=== PATIENT | female | born 1955 | race Caucasian/White ===

== ENCOUNTER 2018-09-23 14:27 | Emergency (ER) | payer MEDICARE ==
[2018-09-23] MEDS ORDERED: NS 0.9% 1000 ML* 1,000 ML IV ONE (18:32)
[2018-09-23] MEDS ORDERED: fentaNYL* 50 MCG/ML 2 ML VIAL (100 MCG VIAL) IV ONE (18:32)
--- NOTE | 2018-09-23 19:14 | ED ---
Headache - HPI Summary HPI Summary: 63-year-old female with complicated medical history presents with close friend with complaints of severe headache. She has a history of migraines and is followed by Dr. Miguel, neurology. Patient also states that since June of this year she has also been having significant issues pain throughout her joints and muscles. She reports that Dr. Miguel suspect she may have Parkinson's however she was recently evaluated by Dr. Cortes at [facility] who did not feel she had Parkinson's but did raise concern for Chittenden's disease. States blood work was performed at that visit but have not been given any results. States she has been evaluated twice at [place] emergency room in the past week for her headache and that they were able to improve her headache however it would return shortly after returning home. Reports at home she has only been taking 1 1/2 of her hydrocodone- acetaminophen 5/325 tablets daily and instead been try to manage with her DHE out of fear of becoming addicted to the opioid pain medication. After last visit to [facility] ED, states she was prescribed fentanyl patches however she was told by one of her doctors not to use these because "she may go to sleep and not wake up". She told her friend that she was considering using them anyway "because would be better than her constant pain". Her friend removed the fentanyl patches from the home because of these statements. Patient states that she is not currently suicidal nor does she have a plan in place. States the headache is located in the right judaism and right side of her head. Describes as throbbing. Associated with some photophobia. States headache is similar to her past headaches however states the pain is 10/10 and is the worse headache of her life. Denies nasal congestion, sinus congestion, ear pain or fullness, sore throat, cough, chest pain, palpitations, shortness of breath, abdominal pain, nausea, vomiting, diarrhea, dysuria, frequency, urgency, or hematuria. - History Of Current Complaint Chief Complaint: EDHeadache Stated Complaint: HURT ALL OVER Time Seen by Provider: 09/23/18 18:03 Hx Obtained From: Patient, Other: - Friend - Allergies/Home Medications Allergies/Adverse Reactions: Allergies Allergy/AdvReac Type Severity Reaction Status Date / Time hydromorphone [From Dilaudid] Allergy Vomiting Verified 09/23/18 14:35 memantine [From Namenda] Allergy Coughing Verified 09/23/18 14:35 oxycodone Allergy Vomiting Verified 09/23/18 14:35 Sulfa (Sulfonamide Allergy Rash And Verified 09/23/18 14:35 Antibiotics) Itching sumatriptan [From Imitrex] Allergy See Comment Verified 09/23/18 14:35 Home Medications: Home Medications ALPRAZolam [Alprazolam] 1 mg PO BID 09/23/18 [History Confirmed 09/23/18] ALPRAZolam [Alprazolam] 2 mg PO BID PRN 09/23/18 [History Confirmed 09/23/18] Albuterol HFA INHALER* [Ventolin HFA Inhaler*] 2 puff INH Q4H PRN 09/23/18 [ History Confirmed 09/23/18] Aloe Vera 1 tab PO DAILY 09/23/18 [History Confirmed 09/23/18] Ammonium Lactate 12% [Lac-Hydrin 12 %] 1 applic TOPICAL BID PRN 09/23/18 [ History Confirmed 09/23/18] Calcium Carb, Citrate/Vit D3 [Calcium+D3 Gradual Releas] 1 tab PO DAILY [History Confirmed 09/23/18] Cyclobenzaprine TAB* [Flexeril 10 MG TAB*] 10 mg PO Q8H PRN 09/23/18 [History Confirmed 09/23/18] Dihydroergotamine (D.H.E.)* [D.h.e. 45*] 1 mg .SEE ORDER DAILY PRN 09/23/18 [ History Confirmed 09/23/18] Escitalopram Oxalate [Lexapro 20 mg] 30 mg PO DAILY 09/23/18 [History Confirmed 09/23/18] Fenofibrate Nanocrystallized [Tricor] 145 mg PO DAILY 09/23/18 [History Confirmed 09/23/18] Fremanezumab-Vfrm [Ajovy] 225 mg SQ SEE INSTRUCTIONS 09/23/18 [History Confirmed 09/23/18] Hydrocodone/Acetaminophen [Vicodin 5-300 mg] 1 tab PO Q4H PRN 09/23/18 [History Confirmed 09/23/18] Krill/Om-3/Dha/Epa/Phospho/Ast [Krill Oil 500 mg] 1 cap PO DAILY 09/23/18 [ History Confirmed 09/23/18] Magnesium 400 mg PO DAILY 09/23/18 [History Confirmed 09/23/18] Montelukast Sodium TAB* [Singulair TAB*] 10 mg PO BEDTIME 09/23/18 [History Confirmed 09/23/18] Omeprazole CAP* [Prilosec CAP* 20 MG] 20 mg PO DAILY 09/23/18 [History Confirmed 09/23/18] Onabotulinumtoxina [Botox Cosmetic] 1 dose INJ SEE INSTRUCTIONS 09/23/18 [ History Confirmed 09/23/18] Ondansetron ODT TAB* [Zofran 4 MG Odt TAB*] 4 mg PO TID PRN 09/23/18 [History Confirmed 09/23/18] Sucralfate TAB* [Carafate*] 1 gm PO BID 09/23/18 [History Confirmed 09/23/18] Thalidomide [Thalomid] 100 mg PO DAILY 09/23/18 [History Confirmed 09/23/18] Triamcinolone 0.1% CREAM (NF) [Kenalog 0.1% Cream (NF)] 1 applic TOPICAL DAILY PRN 09/23/18 [History Confirmed 09/23/18] PMH/Surg Hx/FS Hx/Imm Hx Endocrine/Hematology History: Denies: Autoimmune Disease Cardiovascular History: Reports: Hx Hypercholesterolemia Denies: Hx Coronary Artery Disease Respiratory History: Reports: Hx Asthma GI History: Reports: Hx Gastroesophageal Reflux Disease, Other GI Disorders - Chroninc constipation History: Reports: Hx Kidney Infection Musculoskeletal History: Reports: Hx Back Problems, Other Musculoskeletal History - Complex pain syndrome Neurological History: Reports: Hx Migraine, Other Neuro Impairments/Disorders - 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 Psychiatric History: Reports: Hx Anxiety - with panic attacks - Cancer History Cancer Type, Location and Year: Breast cancer right breast Hx Chemotherapy: Yes - [id number] - Surgical History Surgery Procedure, Year, and Place: Jaw surgery (1969, 1972, 1990), Hysterectomy (1987), Spinal fusion C3-7, L4-S1, Sinus (2005), Baldder tvt (2001 , 2009, 2016), ORIF right ankle (2009), Infectious Disease History: No Infectious Disease History: Denies: Traveled Outside the [place] in Last 30 Days - Social History Occupation: Disabled Lives: Alone Alcohol Use: Weekly Alcohol Amount: 1 glass wine Substance Use Type: Reports: None Smoking Status (MU): Never Smoked Tobacco Review of Systems Negative: Fever, Chills Positive: Photophobia. Negative: Blurred Vision, Diplopia, Drainage, Erythema Negative: Sore Throat, Ear Ache, Nasal Discharge Negative: Palpitations, Chest Pain Negative: Shortness Of Breath, Cough Negative: Abdominal Pain, Vomiting, Diarrhea, Nausea Positive: no symptoms reported Positive: Myalgia Negative: Rash Positive: Headache. Negative: Weakness, Paresthesia, Numbness, Syncope, Slurred Speech Positive: Depressed, Other - Suicidal ideas All Other Systems Reviewed And Are Negative: Yes Physical Exam - Summary Physical Exam Summary: GENERAL APPEARANCE: Obese, chronically ill-appearing, alert and cooperative female who appears to be in no acute distress. HEAD: Atraumatic. normocephalic. EYES: PERRL, EOM intact. Vision is grossly intact. EARS: External auditory canals and tympanic membranes clear, hearing grossly intact. NOSE: No nasal discharge. THROAT: Oral cavity and pharynx normal. No inflammation, swelling, exudate, or lesions. Teeth and gingiva in good general condition. NECK: Neck supple, non-tender without lymphadenopathy. CARDIAC: Normal S1 and S2. No S3, S4 or murmurs. Rhythm is regular. There is no peripheral edema, cyanosis or pallor. Extremities are warm and well perfused. Capillary refill is less than 2 seconds. Peripheral pulses intact. LUNGS: Clear to auscultation without rales, rhonchi, wheezing or diminished breath sounds. ABDOMEN: Positive bowel sounds. Soft, rotund, nondistended, nontender. No guarding or rebound. No masses or hepatosplenomegally. MUSKULOSKELETAL: ROM intact to all extremities. No joint erythema or tenderness. Normal muscular development. EXTREMITIES: No significant deformity or joint abnormality. No edema. NEUROLOGICAL: CN II-XII intact. Speech is slurred and patient appears to need to concentrate when speaking but her friend states this has been her baseline for almost 1 year now. Strength and sensation symmetric and intact throughout. Reflexes 2+ throughout. Richards to toe intact bilaterally. SKIN: Skin normal color, texture and turgor with no lesions or eruptions. PSYCHIATRIC: The patient was able to demonstrate good judgement and reason, without hallucinations, abnormal affect or abnormal behaviors during the examination. Patient denies suicidal ideation or plan at present. Triage Information Reviewed: Yes Vital Signs On Initial Exam: Initial Vitals Temp Pulse Resp BP Pulse Ox 97.9 F 76 18 152/79 99 09/23/18 14:31 09/23/18 14:31 09/23/18 14:31 09/23/18 14:31 09/23/18 14:31 Vital Signs Reviewed: Yes Diagnostics - Vital Signs Vital Signs Temp Pulse Resp BP Pulse Ox 09/23/18 16:42 98.0 F 72 17 149/85 99 09/23/18 14:31 97.9 F 76 18 152/79 99 - Laboratory Result Diagrams: 09/23/18 19:32 09/23/18 19:31 Lab Statement: Any lab studies that have been ordered have been reviewed, and results considered in the medical decision making process. - CT No standard instances CT Interpretation Completed By: Radiologist Summary of CT Findings: EXAM: CT Head Without Contrast. EXAM DATE/TIME: 2018 7:11 PM. CLINICAL HISTORY: 63 years old, female; Pain; Headache; Additional info: Headache "worst ever". TECHNIQUE: Axial computed tomography images of the head/brain without contrast. All CT scans at this facility use at least one of these dose optimization. techniques: automated exposure control ; mA and/or kV adjustment per patient. size (includes targeted exams where dose is matched to clinical indication); or. iterative reconstruction. COMPARISON: No relevant prior studies available. FINDINGS: Brain: No mass, acute hemorrhage, or edema. Ventricles: Normal. No ventriculomegaly. Bones/ joints: Normal. No acute fracture. Sinuses: Normal as visualized. No acute sinusitis. Mastoid air cells: Normal as visualized. No mastoid effusion. Soft tissues: Normal. Vasculature: Atherosclerotic calcification. IMPRESSION: No acute intracranial abnormality. Re-Evaluation - Re-Evaluation First Eval Re-Evaluation Time: 19:48 Change: Improved Comment: Patient states pain is much improved. Her headache is now 7/10 and her body aches are 4/10. Resting quietly. CT scan shows no acute process. Labs are still pending. Will continue to monitor and request mental health assessment at the request of the patient. Headache Course/Dx - Course Course Of Treatment: 63-year-old female with complicated medical history presents with close friend with complaints of severe headache. She has a history of migraines and is followed by Dr. Miguel, neurology. Patient also states that since June of this year she has also been having significant issues pain throughout her joints and muscles. She reports that Dr. Miguel suspect she may have Parkinson's however she was recently evaluated by Dr. Cortes at [facility] who did not feel she had Parkinson's but did raise concern for Chittenden's disease. States blood work was performed at that visit but have not been given any results. States she has been evaluated twice at [place] emergency room in the past week for her headache and that they were able to improve her headache however it would return shortly after returning home. Reports at home she has only been taking 1 1/2 of her hydrocodone-acetaminophen 5/325 tablets daily and instead been try to manage with her DHE out of fear of becoming addicted to the opioid pain medication. After last visit to [facility] ED, states she was prescribed fentanyl patches however she was told by one of her doctors not to use these because "she may go to sleep and not wake up". She told her friend that she was considering using them anyway "because would be better than her constant pain". Her friend removed the fentanyl patches from the home because of these statements. Patient states that she is not currently suicidal nor does she have a plan in place. States the headache is located in the right judaism and right side of her head. Describes as throbbing. Associated with some photophobia. States headache is similar to her past headaches however states the pain is 10/10 and is the worse headache of her life. Denies nasal congestion, sinus congestion, ear pain or fullness, sore throat, cough, chest pain, palpitations, shortness of breath, abdominal pain, nausea, vomiting, diarrhea, dysuria, frequency, urgency, or hematuria. Afebrile. She is hypertensive but vital signs otherwise within normal parameters. Exam reveals a chronically appearing female in no acute distress. She is noted to have some slurred speech and has to concentrate when speaking however her friend who is with her states that this is been her baseline for the past year. The remainder of her exam including her neurological exam were unremarkable. A noncontrasted CT of the head was obtained and showed no acute pathology. Labs showed a mild normocytic anemia with a red blood cell count of 3.96, elevated serum glucose of 164, mild hyponatremia with sodium of 134, urinalysis was normal except for some small amount of glucose. Patient received fentanyl 50 g IV 1 dose with improvement in her pain. A mental health evaluation was obtained at the patient's request. Mental health felt patient was safe for discharge with outpatient follow up. From a medical standpoint I also feel she is safe for discharge. She has appointments scheduled for follow up with Dr. Cortes and Dr. Miguel. I encouraged her to contact Dr. Cortes first thing Wednesday since he was currently evaluating her for the new pain syndrome, to let him know about her recent ED visits, and to inquire about an earlier appointment considering the escalation of her pain. I also encouraged the patient to utilize her hydrocodone as prescribed since the DHE was not managing her pain adequately. Warning symptoms were reviewed with the patient. Verbalizes understanding and agrees with POC. - Diagnoses Differential Diagnosis/HQI/PQRI: CVA, TIA, Epidural Hematoma, Subdural Hematoma , Migraine, Sinus Headache, Subarachnoid Hemorrhage, Tension Headache Provider Diagnoses: Migraine headache, Chronic idiopathic pain syndrome Discharge - Sign-Out/Discharge Documenting (check all that apply): Patient Departure - Discharge Plan Condition: Improved Disposition: HOME Patient Education Materials: Migraine Headache (ED), Depression (ED) Referrals: No Primary Care Phys,NOPCP [Primary Care Provider] - Additional Instructions: I highly recommend that you use your hydrocodone-acetaminophen as it is prescribed for your pain. Call Dr. Cortes's office first thing Wednesday to make him aware of your recent evaluations in the emergency room and discuss possibly moving your appointment to sooner than 10/13/2018. Follow up with Dr. Miguel as scheduled. Seek immediate medical attention in the emergency room if you have loss of consciousness, become dizzy, have visual disturbances, weakness, numbness, tingling in the arms or legs, chest pain, feel like your heart is racing or skipping beats, shortness of breath, or any worsening of symptoms. Per the Mental Health Evaluation: Per completion of a mental health evaluation, you are cleared for release and do not require inpatient psychiatric hospitalization at this time. Please go to nearest emergency room or call 911 if safety concerns arise or condition worsens. Important Phone Numbers: [facility] ph:[phone] Su[facility] Prevention [facility] Crisis Services ph:[phone] National Suicide Prevention Lifeline ph:[phone] ([phone]) [facility] ph:[phone] Alcoholics Anonymous ph: [facility] ph:[phone] [facility] ph:[phone] Mental [facility] recommendation is to follow through with therapist and psychatrist as well as consider engagement in a [facility] for increased support and access to care. Return to ED if mental health symptoms worsen, you have ideation of self harm or desire to return. - Billing Disposition and Condition Condition: IMPROVED Disposition: Home
[2018-09-23 19:43] LABS: ABS Basophils 0 10^3/ul (0-0.2); ABS Eosinophils 0.2 10^3/ul (0-0.6); ABS Lymphocytes 0.8 10^3/ul (1.0-4.8); ABS Monocytes 0.5 10^3/ul (0-0.8); ABS Neutrophils 2.8 10^3/ul (1.5-7.7); ABS Nucleated RBC 0 10^3/ul; Eosinophil % 4.7 %; Hematocrit 36 % (35-47); Lymphocyte % 17.6 %; Mean Corpuscular HGB Conc 34 g/dl (31-36); Mean Corpuscular Hemoglobin 30 pg (27-31); Mean Corpuscular Volume 90 fL (80-97); Nucleated Red Blood Cells % 0.1; Platelet Count 385 10^3/ul (150-450); Red Blood Count 3.96 10^6/ul (4.00-5.40); Red Cell Distribution Width 15 % (10.5-15); White Blood Count 4.3 10^3/ul (3.5-10.8)
[2018-09-23 19:46] LABS: Urine Appearance Clear; Urine Bilirubin Negative (Negative); Urine Blood Negative (Negative); Urine Color Straw; Urine Glucose 1+(50 mg/dL) (Negative); Urine Ketones Negative (Negative); Urine Nitrite Negative (Negative); Urine Protein Negative (Negative); Urine Specific Gravity 1.002 (1.010-1.030); Urine Urobilinogen Negative (Negative)
[2018-09-23 19:59] LABS: Albumin/Globulin Ratio 1.5 (1-3); BUN/Creatinine Ratio 10.6 (8-20); Calcium 9.1 mg/dL (8.6-10.3); EGFR Non-African American 89.9 (>60); Globulin 2.7 g/dL (2-4); Potassium 3.8 mmol/L (3.5-5.0); Total Bilirubin 0.3 mg/dL (0.2-1.0); Total Protein 6.7 g/dL (6.4-8.9)
[2018-09-23 20:56] LABS: Erythrocyte Sed Rate 18 mm/Hr (0-40)
[2018-09-23 22:33] VITALS: BP 148/72
== END 2018-09-23 22:58 | disposition home or self-care (01) ==
LOC: ED 14:27
DX: G43.909 Migraine, unspecified, not intractable, without status migrainosus (principal); G89.4 Chronic pain syndrome; E66.9 Obesity, unspecified; E78.00 Pure hypercholesterolemia, unspecified; J45.909 Unspecified asthma, uncomplicated; K21.9 Gastro-esophageal reflux disease without esophagitis; F41.9 Anxiety disorder, unspecified; Z85.3 Personal history of malignant neoplasm of breast; Z88.2 Allergy status to sulfonamides; Z88.5 Allergy status to narcotic agent
CPT/HCPCS: 36415; 70450; 80053; 81003; 85025; 85652; 96361; 96374; 99284; J3010

== ENCOUNTER 2019-01-11 17:50 | Emergency (ER) | payer MEDICARE, MEDICAID ==
--- OUTSIDE RECORDS SUMMARY | 2019-01-11 18:00 | XMS REPORT | Continuity of Care Document ---
:1955 External Reference #:[id number] Author Name Bella leija Care Team Providers Name Role Phone Melia Marin MD Primary Care Physician Unavailable Payers Date Identification Numbers Payment Provider Subscriber Effective: 2002 Policy Number: [id number] Medicare Barbara Sorto PayID: [id number] [address] [place] [address] Policy Number: [id number] Medicaid Barbara Sorto Group Name: 1 1 [address] PayID: [id number] [place] [address] Expires: 2018 Policy Number: [id number] Pako Sorto PayID: [id number] [address] [place] [address] Advance Directives Description No Information Available Problems Date Description Provider Status Onset: 10/02/2014 Refractory migraine without aura Charles Quiñones M.D. Active Onset: 06/21/2015 Localized, primary osteoarthritis Evans Vuong M.D. Active Family History Description No Information Available Social History Type Date Description Comments Sex Unknown ETOH Use Denies alcohol use Tobacco Use Start: Unknown Patient has never smoked Smoking Status Reviewed: 12/20/18 Patient has never smoked Allergies, Adverse Reactions, Alerts Date Description Reaction Status Severity Comments 03/21/2013 Sulfa Antibiotics Active 03/21/2013 Dilaudid Active 03/21/2013 Oxycodone Active 03/21/2013 Imitrex Active 09/19/2013 Bentyl Active 12/19/2013 Namenda Cough Active Medications Medication Date Status Form Strength Qnty SIG Indications Ordering Provider Lidocaine Viscous 12/20 Active Solution 2% 100ml Take 4mL G43.019 Charles S. /2018 intranasal Ishmael, ly daily M.D. as needed for . May take up to 3 times a week. Dihydroergotamine 09/06 Active Solution 1mg/ml 10uni Inject One Charles S. Mesylate ts ML Every 8 [place], Hours as M.D. Needed For Migraine. Maximum Daily Dose=3MG Max Weekly Dose Is 6 MG Xanax Active Tablets 2mg 1 tablet Unknown / by mouth three daily Thalomid Active Capsules 100mg qd for cough Symbicort Active Aerosol 80-4.5mcg 2 puff / /Act twice a day prn Fenofibrate Active Capsules 145mg 1 by mouth Unknown Micronized / every day Montelukast Sodium Active Tablets 10mg 1 by mouth Unknown / every night Magnesium Active Capsules 400mg 1 by mouth Unknown / every day Aloe Vera Active Tablet 1 tab po qd Krill Oil Active Capsules 500mg 1 capsule Unknown /0000 by mouth daily Cyclobenzaprine Active Tablets 10mg one by Unknown HCL / mouth three times a day Lexapro Active Tablets 20mg 1 1/2 tab Unknown / by mouth every day Botox Active Solution 1 Rec injection every 3 months Sucralfate Active Tablets 1gm 1 tab a day Albuterol Sulfate Active Nebulizer (2.5mg/3M 1 / L) 0.083% applicatio n every 4 hours as needed Calcium 500 Active Tablets 500-250-2 once a day 00mg-mg-U nit Vicodin Active Tablets 5-300mg 1-2 every Unknown 4 hours as needed Omeprazole Active Capsules 20mg [address] every day CBD Oil Active Unknown / Ammonium Lactate Active Cream 12% use twice Unknown / a day Triaminolone Active prn Unknown Acetone Cream .1% /0000 Doxycycline Active Capsules 100mg Unknown Monohydrate / Ondansetron 10/19 Hx Tablets 4mg 90tab 1 three G24.01 . Dispers s times a Ishmael, - day as M.D. 12/19 needed for nausea Topiramate 12/26 Hx Tablets 25mg 120ta 2 in am . bs and 2 Ishmael, - every M.D. 10/12 night at bedtime Prednisone 12/19 Hx Tablets 20mg 6tabs 3 po x1 day then 2 Ishmael, - po x1 day M.D. 01/19 then 1 po qd and stop Prednisone 11/26 Hx Tablets 20mg 6tabs 3 po x1 day then 2 Ishmael, - po x1 day M.D. 12/10 then 1 po qd and stop Cephalexin 02/27 Hx Capsules 500mg 21cap 1 by mouth S. s qid Ishmael, - M.D. 06/06 Thalomid 02/06 Hx Capsules 100mg Ordering - Provider 03/23 Rizatriptan 12/19 Hx Tablets 5mg 10tab 1 by mouth Charles S. Benzo s twice a Ishmael, - day as M.D. 06/20 needed migraine max 2 d/wk do not take within 24 hours of Dhe Vicodin HP 12/01 Hx Tablets 10-300mg 90tab 1 tablet s by mouth Olu LEARNING AND DEVELOPMENT ADMINISTRATOR - every 8 01/04 hours as needed Vicodin 11/15 Hx Tablets 10-325mg 90tab 1 tablet Charles S. s po q 8 Ishmael, - hours prn M.D. 12/01 Prochlorperazine 05/05 Hx Tablets 10mg 60tab 1 tab Charles S. Male s twice a Ishmael, - day as M.D. 10/10 needed for migraine. Maxalt-PIPE BOWLS PAINT TRIMMER 12/06 Hx Tablets 10mg 10tab 1 twice a Charles S. /2012 Dispers s day max 2 Ishmael, - days/week M.D. 01/11 as needed for headache Namenda 08/03 Hx Tablets 10mg 60tab 1 po bid Charles S. s Ishmael, - M.D. 12/19 Hydrocodone 05/31 Hx Tablets 10-300mg 90tab 1 three Charles S. Bitartrate/Acetami /2011 s times a brian Quiñones - terrell pain M.D. 09/21 Aspirin Low Hx Chewtabs 81mg 1 po qd Unknown Strength /0000 - 12/19 Fish Oil Double Hx Capsules 1200mg 30cap 1 po qd Unknown Strength /0000 s - 10/12 Flexeril Hx Tablets 10mg 90tab 1 po tid Unknown /0000 s - 12/10 Singulair Hx Tablets 10mg 90tab 1 po qd Unknown /0000 s - 09/19 Xanax XR Hx Tablets ER 1mg 30tab 1 qid prn Unknown / 24HR s - 09/19 Calcium 1200 Hx Chewtabs 8183-5407 90uni 1 po qd Unknown /0000 mg-Unit ts - 12/20 Albuterol Sulfate Hx Tablets 2mg 1tabs 2 puffs Unknown /0000 four times - a day as 10/12 Vicodin HP Hx Tablets 10-300mg 24tab 1 q6h prn Unknown /0000 s - 08/30 Dihydroergotamine Hx Solution 1mg/ml 10uni inject 1 Unknown Mesylate /0000 ts ml every 8 - hours as 09/19 needed migraine max 3 mg/d and 6 mg/wk Nexium Hx Packet 40mg 90uni 1 po qd Unknown /0000 ts - 10/12 Namenda Hx Tablets 10mg 60tab 1 po bid Unknown /0000 s - 09/19 Zetia Hx Tablets 10mg 1 po qd Unknown / - 09/19 Clonazepam / Hx Tablets 1mg 1 PO qid Unknown / - 09/28 Furosemide / Hx Tablets 20mg 1 PO qd Unknown / - 06/06 Codeine Sulfate Hx Tablets 30mg 1 PO Q 8h Unknown / - 06/20 Escitalopram / Hx Tablets 20mg 1 PO qd Unknown Oxalate /0000 - 12/19 Proair HFA Hx Aerosol 108(90Bas Unknown /0000 e) - mcg/Act 06/06 Escitalopram 00/00 Hx Tablets 20mg 1.5 tabs Unknown Oxalate /0000 PO daily - 12/16 EX-Lax Hx Tablets 15mg 2 po prn Unknown /0000 - 06/06 Hydrocodone-Acetam 00/00 Hx Tablets 10-325mg 1 tab by Unknown inophen /0000 mouth - every 8 10/12 hours needed migraine Methylprednisolone 00 Hx Tablets 4mg 4 po daily Unknown (Giovani) /0000 and then - as 06/06 directed days Zetia Hx Tablets 10mg 1 by mouth Unknown /0000 every day - 10/10 Tolterodine Hx Tablets 1 tab po Unknown Tartrate /0000 qd - 08/30 Metformin HCL Hx Tablets 500mg 1 by mouth Unknown /0000 every - night 08/29 Potassium 00 Hx Tablets 99mg otc once a Unknown /0000 day - 07/06 Myrbetriq Hx Tablets ER 50mg 1 by mouth Unknown /0000 24HR every day - 10/12 Tizanidine HCL 00 Hx Tablets 2mg 1 po q8h Unknown /0000 - 10/12 Xanax 00 Hx Tablets 1mg 1 tablet Unknown /0000 by mouth - twice 12/19 Sucralfate 0000 Hx Tablets 1gm 1 by mouth Unknown /0000 twcie a - day 10/18 Hydrocodone-Acetam 0000 Hx Tablets 5-325mg 1 tab by Unknown inophen /0000 mouth - every 4 12/19 hours needed Ajovy 00/00 Hx Soln 225mg/1.5 inject Unknown /0000 Prefill ML once a - Syringe month 10/10 Medications Administered in Office Medication Date Status Form Strength Qnty SIG Indications Ordering Provider Synvisc Or 10/26 Administered Injection Evans Synvis- Yevgeniy, Injection 1 MG M.D. Synvisc Or 10/26 Administered Injection Evans Synvisc- Yevgeniy, Injection 1 MG M.D. Depomedrol 40MG 10/10 Administered Injection Vani Vuong Depomedrol 40MG 10/10 Administered Injection Vani Vuong Depomedrol 40MG 10/13 Administered Injection Vani Vuong Depomedrol 40MG 10/13 Administered Injection Vani Vuong Depomedrol 40MG 07/07 Administered Injection Vani Vuong Depomedrol 40MG 07/07 Administered Injection Vani Vuong Depomedrol 40MG 03/03 Administered Injection Vani Vuong Depomedrol 40MG 03/03 Administered Injection Vani Vuong Depomedrol 40MG 11/04 Administered Injection Vani Vuong Depomedrol 40MG 11/04 Administered Injection Vani Vuong Depomedrol 40MG 07/01 Administered Injection Vani Vuong Depomedrol 40MG 07/01 Administered Injection Vani Vuong Depomedrol 40MG 02/25 Administered Injection Vani Vuong Depomedrol 40MG 02/25 Administered Injection Vani Vuong Injection 01/20 Administered Injection Charles S. Onabotulinumtoxin /2015 Ishmael A, 1 Unit M.D. Depomedrol 40MG 10/23 Administered Injection Vani Vuong Injection 10/16 Administered Injection Charles S. Onabotulinumtoxin /2015 Ishmael, A, 1 Unit M.D. Injection 07/04 Administered Injection Lea Onabotulinumtoxin /2014 GEO Raines A, 1 Unit Depomedrol 80MG 06/21 Administered Injection Vani Vuong Injection 04/03 Administered Injection Lea Onabotulinumtoxin /2014 Olu LEARNING AND DEVELOPMENT ADMINISTRATOR A, 1 Unit Injection 01/02 Administered Injection Lea Onabotulinumtoxin /2014 GEO Raines A, 1 Unit Injection 10/02 Administered Injection Charles S. Onabotulinumtoxin /2014 Ishmael, A, 1 Unit M.D. Injection 07/03 Administered Injection Charles S. Onabotulinumtoxin /2013 [place], A, 1 Unit M.D. Injection 03/27 Administered Injection Charles S. Onabotulinumtoxin /2013 [place], A, 1 Unit M.D. Injection 12/19 Administered Injection Charles S. Onabotulinumtoxin /2013 Bello Quiñones, 1 Unit M.D. Injection 09/19 Administered Injection Charles S. Onabotulinumtoxin /2012 Bello Quiñones, 1 Unit M.D. Injection 06/13 Administered Injection Charles S. Onabotulinumtoxin /2012 Bello Quiñones, 1 Unit M.D. Injection 03/08 Administered Injection Charles S. Onabotulinumtoxin /2012 Bello Quiñoens, 1 Unit M.D. Synvisc Or 12/13 Administered Injection Evans Synvisc-One Yevgeniy, Injection 1 MG M.D. Synvisc Or 12/13 Administered Injection Evans Synvisc-One Yevgeniy, Injection 1 MG M.D. Injection 12/06 Administered Injection Charles S. Onabotulinumtoxin /2012 Bello Quiñones, 1 Unit M.D. Injection 09/06 Administered Injection Charles S. Onabotulinumtoxin /2011 Bello Quiñones, 1 Unit M.D. Synvisc Or 06/30 Administered Injection Kvng Synvisc-One Delvis, Injection 1 MG M.D. Synvisc Or 06/21 Administered Injection Evans Synvisc-One Yevgeniy, Injection 1 MG M.D. Synvisc Or 06/14 Administered Injection Evans Synvisc-One Yevgeniy, Injection 1 MG M.D. Synvisc Or 06/14 Administered Injection Evans Synvisc-One Yevgeniy, Injection 1 MG M.D. Synvisc Or 06/14 Administered Injection Evans Synvisc-One Yevgeniy, Injection 1 MG M.D. Injection 05/31 Administered Injection Charles S. Onabotulinumtoxin /2011 Bello Quiñones, 1 Unit M.D. Injection 05/31 Administered Injection Charles S. Onabotulinumtoxin /2011 Bello Quiñones, 1 Unit M.D. Immunizations Description No Information Available Vital Signs Date Vital Result Comment 12/20/2018 2:38pm Height 64 inches 5'4" Weight 150.00 lb Heart Rate 80 /min BP Systolic 134 mmHg BP Diastolic 82 mmHg BMI (Body Mass Index) 25.7 kg/m2 10/26/2018 1:10pm Height 64 inches 5'4" Weight 172.00 lb BP Systolic 130 mmHg BP Diastolic 70 mmHg Respiratory Rate 20 /min Pain Level 6 BMI (Body Mass Index) 29.5 kg/m2 10/11/2018 11:25am Height 64 inches 5'4" Weight 160.00 lb Heart Rate 76 /min BP Systolic 128 mmHg BP Diastolic 84 mmHg BMI (Body Mass Index) 27.5 kg/m2 06/29/2018 2:05pm Height 64 inches 5'4" Weight 172.00 lb BP Systolic 140 mmHg BP Diastolic 66 mmHg Respiratory Rate 20 /min Pain Level 8 BMI (Body Mass Index) 29.5 kg/m2 10/19/2017 10:41am Height 64 inches 5'4" Weight 171.50 lb Heart Rate 80 /min BP Systolic 122 mmHg BP Diastolic 78 mmHg Respiratory Rate 16 /min BMI (Body Mass Index) 29.4 kg/m2 10/13/2017 12:55pm Height 64 inches 5'4" Weight 172.00 lb Heart Rate 72 /min BP Systolic Sitting 132 mmHg LA reg cuff BP Diastolic Sitting 84 mmHg LA reg cuff Pain Level 8 BMI (Body Mass Index) 29.5 kg/m2 07/07/2017 1:36pm Height 64 inches 5'4" Weight 159.00 lb BP Systolic 120 mmHg BP Diastolic 68 mmHg Respiratory Rate 20 /min Pain Level 5 BMI (Body Mass Index) 27.3 kg/m2 03/03/2017 9:15am Height 64 inches 5'4" Weight 159.00 lb Heart Rate 84 /min BP Systolic 140 mmHg BP Diastolic 82 mmHg Respiratory Rate 18 /min Body Temperature 97.7 F Pain Level 6 BMI (Body Mass Index) 27.3 kg/m2 11/04/2016 11:31am Height 64 inches 5'4" Weight 150.00 lb Heart Rate 88 /min Respiratory Rate 18 /min Pain Level 3 BMI (Body Mass Index) 25.7 kg/m2 07/01/2016 11:44am Height 64 inches 5'4" Weight 150.00 lb per patient Heart Rate 74 /min BP Systolic Sitting 128 mmHg BP Diastolic Sitting 60 mmHg Pain Level 5 5/10 discomfort level; achy BMI (Body Mass Index) 25.7 kg/m2 02/26/2016 11:49am Height 64 inches 5'4" Weight 152.00 lb Pain Level 8 BMI (Body Mass Index) 26.1 kg/m2 01/21/2016 10:44am Height 64 inches 5'4" Weight 152.38 lb Heart Rate 88 /min BP Systolic Sitting 118 mmHg BP Diastolic Sitting 68 mmHg Respiratory Rate 14 /min BMI (Body Mass Index) 26.2 kg/m2 12/18/2015 10:41am Height 64 inches 5'4" Weight 154.00 lb Heart Rate 68 /min BP Systolic Sitting 122 mmHg BP Diastolic Sitting 70 mmHg Respiratory Rate 16 /min BMI (Body Mass Index) 26.4 kg/m2 10/16/2015 1:52pm Height 64 inches 5'4" Weight 156.00 lb Heart Rate 64 /min BP Systolic Sitting 118 mmHg BP Diastolic Sitting 78 mmHg Respiratory Rate 14 /min BMI (Body Mass Index) 26.8 kg/m2 08/30/2015 11:01am Height 64 inches 5'4" Weight 160.00 lb Heart Rate 72 /min BP Systolic Sitting 122 mmHg BP Diastolic Sitting 74 mmHg Respiratory Rate 16 /min BMI (Body Mass Index) 27.5 kg/m2 07/04/2015 10:21am Height 64 inches 5'4" Weight 155.00 lb Heart Rate 72 /min BP Systolic Sitting 118 mmHg BP Diastolic Sitting 84 mmHg Respiratory Rate 14 /min BMI (Body Mass Index) 26.6 kg/m2 06/21/2015 11:55am Height 64 inches 5'4" Weight 163.00 lb Pain Level 8 BMI (Body Mass Index) 28.0 kg/m2 06/07/2015 3:35pm Height 64 inches 5'4" Weight 163.00 lb Heart Rate 72 /min BP Systolic Sitting 124 mmHg BP Diastolic Sitting 76 mmHg Respiratory Rate 16 /min BMI (Body Mass Index) 28.0 kg/m2 05/22/2015 10:05am Height 64 inches 5'4" Weight 166.00 lb Pain Level 5 BMI (Body Mass Index) 28.5 kg/m2 04/03/2015 10:30am Height 64 inches 5'4" Heart Rate 72 /min BP Systolic Sitting 138 mmHg BP Diastolic Sitting 84 mmHg Respiratory Rate 16 /min 02/27/2015 11:11am Height 64 inches 5'4" Weight 166.00 lb Heart Rate 68 /min BP Systolic Sitting 120 mmHg BP Diastolic Sitting 74 mmHg Respiratory Rate 16 /min BMI (Body Mass Index) 28.5 kg/m2 01/02/2015 10:40am Height 64 inches 5'4" Heart Rate 68 /min BP Systolic Sitting 116 mmHg BP Diastolic Sitting 64 mmHg Respiratory Rate 16 /min 10/02/2014 1:06pm Height 64 inches 5'4" Weight 168.00 lb Heart Rate 64 /min BP Systolic Sitting 118 mmHg BP Diastolic Sitting 76 mmHg Respiratory Rate 16 /min BMI (Body Mass Index) 28.8 kg/m2 07/03/2014 2:30pm Height 64 inches 5'4" Weight 172.00 lb Heart Rate 84 /min BP Systolic Sitting 16 mmHg BP Diastolic Sitting 64 mmHg Respiratory Rate 16 /min BMI (Body Mass Index) 29.5 kg/m2 03/27/2014 9:22am Height 64 inches 5'4" Weight 172.00 lb Heart Rate 80 /min BP Systolic Sitting 102 mmHg BP Diastolic Sitting 68 mmHg Respiratory Rate 16 /min BMI (Body Mass Index) 29.5 kg/m2 12/19/2013 3:28pm Height 64 inches 5'4" Weight 172.00 lb Heart Rate 88 /min BP Systolic Sitting 118 mmHg BP Diastolic Sitting 76 mmHg Respiratory Rate 16 /min BMI (Body Mass Index) 29.5 kg/m2 09/19/2013 3:36pm Heart Rate 98 /min BP Systolic Sitting 120 mmHg BP Diastolic Sitting 80 mmHg Respiratory Rate 18 /min Results Description No Information Available Procedures Date Code Description Status 10/26/2018 Inject/Drain Joint/Bursa Major W/O US Completed 06/29/2018 Inject/Drain Joint/Bursa Major W/O US Completed 10/13/2017 Inject/Drain Joint/Bursa Major W/O US Completed 07/07/2017 Inject/Drain Joint/Bursa Major W/O US Completed 07/02/2017 07780 ECHO Transthorasic Realtime 2D W Doppler & Color Flow Hosp Completed 03/03/2017 Inject/Drain Joint/Bursa Major W/O US Completed 11/04/2016 Inject/Drain Joint/Bursa Major W/O US Completed 07/01/2016 Inject/Drain Joint/Bursa Major W/O US Completed 02/26/2016 Inject/Drain Joint/Bursa Major W/O US Completed 01/21/2016 85451 Chemodenervation Of Muscles Innervated By Facial Nerves, Completed Bilat 10/23/2015 Inject/Drain Joint/Bursa Major W/O US Completed 10/23/2015 80977 Inject/Drain Joint/Bursa Major W/O US Completed 10/16/2015 13617 Chemodenervation Of Muscles Innervated By Facial Nerves, Completed Bilat 07/04/2015 57007 Chemodenervation Of Muscles Innervated By Facial Nerves, Completed Bilat 06/21/201507338 Inject/Drain Joint/Bursa Major W/O US Completed 04/03/2015 58423 Chemodenervation Of Muscles Innervated By Facial Nerves, Completed Bilat 01/02/2015 48589 Chemodenervation Of Muscles Innervated By Facial Nerves, Completed Bilat 10/02/2014 89748 Chemodenervation Of Muscles Innervated By Facial Nerves, Completed Bilat 07/03/2014 49953 Chemodenervation Of Muscles Innervated By Facial Nerves, Completed Bilat 05/29/201428109 Inject/Drain Joint/Bursa Major W/O US Completed 05/22/2014 Inject/Drain Joint/Bursa Major W/O US Completed 05/15/2014 Inject/Drain Joint/Bursa Major W/O US Completed 04/24/201497616 Inject/Drain Joint/Bursa Major W/O US Completed 03/27/2014 91993 Chemodenervation Of Muscles Innervated By Facial Nerves, Completed Bilat 02/06/201416092 Inject/Drain Joint/Bursa Major W/O US Completed 12/19/2013 07777 Chemodenervation Of Muscles Innervated By Facial Nerves, Completed Bilat 10/03/2013 Inject/Drain Joint/Bursa Major W/O US Completed 09/19/2013 63091 Chemodenervation Of Muscles Innervated By Facial Nerves, Completed Bilat 06/13/2013 53119 Chemodenervation Of Muscles Innervated By Facial Nerves, Completed Bilat 03/08/2013 49030 Chemodenervation Of Muscles Innervated By Facial Nerves, Completed Bilat 12/13/201226611 Inject/Drain Joint/Bursa Major W/O US Completed 12/06/2012 39304 Chemodenervation Of Muscles Innervated By Facial Nerves, Completed Bilat 09/06/2012 48598 Destruction W/Neurolytic Agent, Facial Nerve Muscle, Completed Unilateral 06/30/2012 Inject/Drain Joint/Bursa Major W/O US Completed 06/21/2012 Inject/Drain Joint/Bursa Major W/O US Completed 06/21/2012 Inject/Drain Joint/Bursa Major W/O US Completed 06/14/201249500 Inject/Drain Joint/Bursa Major W/O US Completed 05/31/2012 86862 Destruction W/Neurolytic Agent, Facial Nerve Muscle, Completed Unilateral 10/21/2004 96118 ECHO/Stress Completed 10/21/2004 05283 Treadmill Interp/Report Only Completed 10/21/2004 97382 Stress Test Supervsn W/Out I/R Completed 09/29/2004 33640 ECHO/Stress Completed 09/29/2004 29182 Stress Test Completed Encounters Type Date Location Provider Dx Diagnosis Office Visit 10/26/2018 Orthopedic Evans Vuong, M17.0 Bilateral primary 1:30p [facility] Ludwig osteoarthritis of knee M86.8x8 Other osteomyelitis, other site Office Visit 10/11/2018 Beckie Leggett G43.019 Migraine w/o aura, 11:00a Milly Quiñones M.D. 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 knee M25.561 Pain in right knee M25.562 Pain in left knee Office Visit 08/30/2015 Beckie Leggett G43.019 Migraine w/o aura, 11:00a Milly Quiñones M.D. intractable, [facility] [employer] without status migrainosus Office Visit 06/07/2015 Beckie Raines, 334.3 Cerebellar Ataxia 3:00p Neurologic LEARNING AND DEVELOPMENT ADMINISTRATOR Other [facility] [employer] 781.2 Gait Abnormality Office 05/22/2015 Orthopedic Services Narcisa 715.96 Osteoarthrosis Visit 9:45a Of XIAO Foster Unspec Genlzd Or Localized Lower Leg Office 02/27/2015 Neurohospitalist Charles Leggett 346.11 Migraine W/O Aura Visit 10:45a Clinic Vani Quiñones W/Intractable W/O Status Migrainosus Office 07/03/2014 [place] [facility] Charles Leggett 346.11 Migraine W/O Aura Visit 2:00p Services Of Reuben Quiñones M.D. 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 Unspec Genlzd Or AT [place] Localized Lower Leg Office [place] 12/19[place]2013 [place] 346.11 Migraine W/O Aura 3:00p Neurologic Vani Quiñones W/Intractable W/O [facility] Status Migrainosus Office Visit 10/03/2013 Orthopedic Evans 715.96 Osteoarthrosis 1:15p Services Of Reuben Vuong M.D. Unspec Genlzd Or AT [place] Localized Lower Leg Office Visit 03/08/2013 [place] Charles Leggett 346.11 Migraine W/O Aura 1:00p Neurologic Vani Quiñones W/Intractable W/O [facility] Status Migrainosus Office Visit 02/07/2013 Orthopedic Evans 715.96 Osteoarthrosis 1:15p Services Of Reuben Vuong M.D. Unspec Genlzd Or AT [place] Localized Lower Leg Office Visit 12/27/2012 Orthopedic Evans 719.46 Pain Joint Lower Leg 11:30a Services Of Reuben Vuong M.D. AT [place] Office Visit 12/22/2012 Orthopedic Kvng 715.96 Osteoarthrosis 2:15p Services Of Reuben Edmondson M.D. Unspec Genlzd Or AT [place] Localized Lower Leg Office Visit 12/13/2012 Orthopedic Evans 715.96 Osteoarthrosis 3:15p Services Of Reuben Vuong M.D. Unspec Genlzd Or AT [place] Localized Lower Leg 726.61 Bursitis Tendinitis Pes Anserinus Office [place]/06[place]2012 [place] Migraine W/O Aura 2:00p Neurologic Vani Quiñones W/Intractable W/O [facility] Status Migrainosus Office Visit 09/06/2012 [place] Charles Leggett 346.11 Migraine W/O Aura 2:00p Neurologic Vani Quiñones W/Intractable W/O [facility] Status Migrainosus Office Visit 08/16/2012 Orthopedic Evans 715.96 Osteoarthrosis 1:30p Services Of Reuben Vuong M.D. Unspec Genfided Or AT [facility] Lower Leg Office Visit 06/30/2012 Orthopedic Kvng 715.96 Osteoarthrosis 2:00p Services Of Reuben Edmondson M.D. Unspec Gengeoff Or AT [facility] Lower Leg Office Visit 05/31/2012 [place] Charles Castro.11 Migraine W/O Aura 11:00a Neurologic Vani Quiñones W/Intractable W/O [facility] Status Migrainosus Office Visit 05/03/2012 Orthopedic Eavns 715.96 Osteoarthrosis 3:00p Services Of Reuben Vuong M.D. Unspec Genlzd Or AT [facility] Lower Leg Plan of Treatment Future Appointment(s):06/27/2019 2:45 pm - Charles Quiñones M.D. at [place] [facility]04/26/2019 1:00 pm - Evans [facility] - Bear Quintero, NPG43.019 Migraine without aura, intractable, without status migrainosNew Medication:Lidocaine Viscous 2 % - Take 4mL intranasally daily as needed for . May take up to 3 times a week.Follow up:Please obtain ER records from [facility] in November. 6 MONTHS
--- OUTSIDE RECORDS SUMMARY | 2019-01-11 18:00 | XMS REPORT | Continuity of Care Document ---
:1955 External Reference #:[id number] Author Name Benny Berkowitz DO Address [address] [place] [id number] Care Team Providers Name Role Phone Melia Marin MD Primary Care Physician Unavailable Payers Date Identification Numbers Payment Provider Subscriber Policy Number: [id number] Medicare Barbara Sorto PayID: [id number] [facility] [address] [place] [address] Policy Number: [id number] Medicaid/Medicare Barbara Sorto Group Name: [id number] 1 [facility] [employer] PayID: [id number] [address] [place] [address] Advance Directives Description No Information Available Problems Description No Information Family History Description No Information Available Social History Type Date Description Comments Sex Unknown Tobacco Use Start: Unknown Patient has never smoked Smoking Status Reviewed: 12/19/18 Patient has never smoked Allergies, Adverse Reactions, Alerts Date Description Reaction Status Severity Comments 12/19/2018 Sulfa Active 12/19/2018 Oxycodone Active 12/19/2018 Dilaudid Active 12/19/2018 Compazine Active 12/19/2018 [place] Active Medications Medication Date Status Form Strength Qnty SIG Indications Ordering Provider Cyclobenzaprine HCL 12/19 Active Tablets 10mg prn Woo, DO Thalomid 12/19 Active Capsules 100mg Daily Woo, DO Sucralfate 12/19 Active Tablets 1gm 120ta 1 tablet bs by mouth Woo, bid DO Ventolin HFA 12/19 Active Aerosol 108(90Bas 1unit e) s Woo, mcg/Act DO Symbicort 12/19 Active Aerosol 80-4.5mcg /Act Woo, DO Fenofibrate 12/19 Active Tablets 145mg 90tab 1 by mouth s every day DO Woo Montelukast Sodium 12/19 Active Tablets 10mg Daily DO Woo Alprazolam Active Tablets 2mg bid Lexapro Active Tablets 20mg 07/22 Tablets Daily Dihydroergotamine Active Solution 1mg/ml Migraines Unknown Mes Omeprazole Active Capsules 20mg [address] every day Medical Marijuana Active Unknown / Immunizations Description No Information Available Vital Signs Date Vital Result Comment 12/19/2018 2:05pm Height 64 inches 5'4" Weight 150.00 lb BP Systolic 117 mmHg BP Diastolic 85 mmHg Heart Rate 94 /min BMI (Body Mass Index) 25.7 kg/m2 Results Description No Information Available Procedures Description No Information Available Encounters Description No Information Available Plan of Treatment Future Appointment(s):02/03/2019 11:45 am - Benny Berkowitz DO at [facility]12/19/2018 - LUKE [id number] Dysphagia, oropharyngeal phaseNew Xrays:X-Ray, Esophogram w/ Barium Tablet, Ordered: Comments:RISKS AND BENEFITS OF THE PROCEDURE WERE DISCUSSED WITH PATIENT.K59.00 Constipation, [id number] Encounter for screening for malignant neoplasm of colon
[2019-01-11 19:05] LABS: ALT 7 U/L (7-52); AST 8 U/L (13-39); Albumin 3.5 g/dL (3.2-5.2); Albumin/Globulin Ratio 1.3 (1-3); Alkaline Phosphatase 55 U/L (34-104); Anion Gap 8 mmol/L (2-11); BUN/Creatinine Ratio 13.3 (8-20); Blood Urea Nitrogen 8 mg/dL (6-24); C Reactive Protein 112.16 mg/L (<8.01); CO2 Carbon Dioxide 30 mmol/L (22-32); Calcium 9.1 mg/dL (8.6-10.3); Chloride 96 mmol/L (101-111); EGFR African American 121.4 (>60); EGFR Non-African American 100.3 (>60); Globulin 2.6 g/dL (2-4); Glucose 160 mg/dL (70-100); Potassium 3.8 mmol/L (3.5-5.0); Sodium 134 mmol/L (135-145); Total Protein 6.1 g/dL (6.4-8.9)
[2019-01-11 19:12] LABS: ABS Basophils 0 10^3/ul (0-0.2); ABS Eosinophils 0.2 10^3/ul (0-0.6); ABS Lymphocytes 0.6 10^3/ul (1.0-4.8); ABS Monocytes 1.3 10^3/ul (0-0.8); ABS Nucleated RBC 0 10^3/ul; Eosinophil % 1.9 %; Hematocrit 36 % (33-41); Hemoglobin 11.9 g/dL (12.0-16.0); Lymphocyte % 6.2 %; Mean Corpuscular HGB Conc 33 g/dL (31-36); Mean Corpuscular Hemoglobin 30 pg (27-31); Mean Corpuscular Volume 90 fL (80-97); Mean Platelet Volume 7.6 fL (7.4-10.4); Nucleated Red Blood Cells % 0; Platelet Count 344 10^3/uL (150-450); Red Blood Count 3.99 10^6 /uL (3.70-4.87); Red Cell Distribution Width 15 % (10.5-15); White Blood Count 9.1 10^3/uL (3.5-10.8)
[2019-01-11] MEDS ORDERED: Iohexol 350* (CONTRAST) 500 ML MDV IV ONE (19:23)
[2019-01-11] MEDS ORDERED: Heparin DRIP 25,000 UNITS(*) 25,000 UNITS/500 ML BAG IV SCH (21:30)
[2019-01-11] MEDS ORDERED: Ondansetron INJ* 2 MG/ML VIAL IV ONE (21:32)
[2019-01-11] MEDS ORDERED: Morphine 10 MG/ML VIAL (1 ml) IV ONE (21:32)
[2019-01-11] MEDS ORDERED: NS 0.9% 1000 ML** 1,000 ML IV ONE (21:32)
[2019-01-11] MEDS ORDERED: Heparin VIAL(*) 5000 UNITS/ML VIAL (FIVE THOUSAND) IV PRN (21:37)
[2019-01-11 22:08] LABS: Urine Appearance Cloudy; Urine Bilirubin Negative (Negative); Urine Blood Negative (Negative); Urine Color Yellow; Urine Glucose 1+(50 mg/dL) (Negative); Urine Ketones Negative (Negative); Urine Nitrite Negative (Negative); Urine Protein Negative (Negative); Urine Specific Gravity 1.039 (1.010-1.030); Urine Urobilinogen Negative (Negative)
[2019-01-11 22:18] LABS: Urine Granular Casts Present (Absent)
[2019-01-11 22:21] LABS: Urine Squamous Epithelial Cell Present (Absent); Urine Transitional Epithelial Present (Absent)
[2019-01-11 22:51] LABS: ABS Basophils 0 10^3/ul (0-0.2); ABS Eosinophils 0.1 10^3/ul (0-0.6); ABS Lymphocytes 0.7 10^3/ul (1.0-4.8); ABS Monocytes 1.5 10^3/ul (0-0.8); ABS Neutrophils 7.5 10^3/ul (1.5-7.7); ABS Nucleated RBC 0 10^3/ul; Eosinophil % 1.4 %; Hematocrit 34 % (33-41); Hemoglobin 11.2 g/dL (12.0-16.0); Lymphocyte % 7.4 %; Mean Corpuscular HGB Conc 33 g/dL (31-36); Mean Corpuscular Hemoglobin 30 pg (27-31); Mean Corpuscular Volume 91 fL (80-97); Mean Platelet Volume 7.6 fL (7.4-10.4); Nucleated Red Blood Cells % 0; Platelet Count 314 10^3/uL (150-450); Red Blood Count 3.77 10^6 /uL (3.70-4.87); Red Cell Distribution Width 15 % (10.5-15); White Blood Count 9.9 10^3/uL (3.5-10.8)
[2019-01-11 23:07] LABS: EGFR African American 137.1 (>60); EGFR Non-African American 113.3 (>60)
[2019-01-12] MEDS ORDERED: Morphine 10 MG/ML VIAL (1 ml) IV ONE (00:46)
--- NOTE | 2019-01-12 03:44 | ED ---
HPI Chest Pain - HPI Summary HPI Summary: Complains of bilateral lower chest pain 1-2 weeks. Patient states she went to [facility] for same, was told she had fluid on the hard, has appointment with cardiology scheduled this coming Wednesday. Patient states pain was too persistent to wait until apartment with cardiology. Patient denies radiation of pain, SOB, fever, cough, sore throat, N/V/D, diaphoresis, lightheadedness, abdominal pain, change in urine, change in BM. Medical history is migraines, asthma, carditis dyskinesia from taking Compazine. Patient states she stepped Compazine 1 year ago with slow but progressive improvement in symptoms. States she had CHF when she was receiving chemotherapy for breast cancer 10 years ago. Patient in remission from breast cancer. Denies any other cardiac history. No anti-coagulation. - History of Current Complaint Chief Complaint: EDChestPainROMI Time Seen by Provider: 01/11/19 18:10 Hx Obtained From: Patient Onset/Duration: Started Weeks Ago Timing: Constant Initial Severity: Moderate Current Severity: Moderate Pain Intensity: 7 Pain Scale Used: 0-10 Numeric Chest Pain Location: Left Lateral, Right Lateral Chest Pain Radiates: No Character: Pressure/Squeezing Aggravating Factor(s): Nothing Alleviating Factor(s): Nothing Associated Signs and Symptoms: Positive: Chest Pain - Allergy/Home Medications Allergies/Adverse Reactions: Allergies Allergy/AdvReac Type Severity Reaction Status Date / Time hydromorphone [From Dilaudid] Allergy Vomiting Verified 09/23/18 14:35 memantine [From Namenda] Allergy Coughing Verified 09/23/18 14:35 oxycodone Allergy Vomiting Verified 09/23/18 14:35 Sulfa (Sulfonamide Allergy Rash And Verified 09/23/18 14:35 Antibiotics) Itching sumatriptan [From Imitrex] Allergy See Comment Verified 09/23/18 14:35 PMH/Surg Hx/FS Hx/Imm Hx Endocrine/Hematology History: Denies: Hx Diabetes Cardiovascular History: Reports: Hx Hypercholesterolemia Denies: Hx Coronary Artery Disease, Hx Hypertension Respiratory History: Reports: Hx Asthma GI History: Reports: Hx Gastroesophageal Reflux Disease, Other GI Disorders - Chroninc constipation History: Reports: Hx Kidney Infection Musculoskeletal History: Reports: Hx Back Problems, Other Musculoskeletal History - Complex pain syndrome Neurological History: Reports: Hx Migraine, Other Neuro Impairments/Disorders - 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 Psychiatric History: Reports: Hx Anxiety - with panic attacks Denies: Hx Eating Disorder, Hx of Violent Episodes Against Others - Cancer History Cancer Type, Location and Year: Breast cancer right breast Hx Chemotherapy: Yes - [id number] - Surgical History Surgery Procedure, Year, and Place: Jaw surgery (1969, 1972, 1990), Hysterectomy (1987), Spinal fusion C3-7, L4-S1, Sinus (2005), Baldder tvt (2001 , 2009, 2016), ORIF right ankle (2009), Infectious Disease History: No Infectious Disease History: Denies: Traveled Outside the [place] in Last 30 Days - Social History Alcohol Use: Weekly Alcohol Amount: 1 glass wine Substance Use Type: Reports: None Smoking Status (MU): Never Smoked Tobacco Review of Systems Constitutional: Negative Eyes: Negative ENT: Negative Positive: Chest Pain Respiratory: Negative Gastrointestinal: Negative Genitourinary: Negative Musculoskeletal: Negative Skin: Negative Neurological: Negative Psychological: Normal All Other Systems Reviewed And Are Negative: Yes Physical Exam - Summary Physical Exam Summary: Lung sounds clear to auscultation bilaterally. Patient tender to palpation lower chest wall bilaterally. No evidence of trauma. Abdomen soft nontender. No peripheral edema. Calves soft nontender. Triage Information Reviewed: Yes Vital Signs On Initial Exam: Initial Vitals Temp Pulse Resp BP Pulse Ox 100.2 F 83 18 130/101 97 01/11/19 18:00 01/11/19 18:00 01/11/19 18:00 01/11/19 18:00 01/11/19 18:00 Vital Signs Reviewed: Yes Appearance: Positive: Well-Appearing Skin: Positive: Warm Head/Face: Positive: Normal Head/Face Inspection Eyes: Positive: Normal Neck: Positive: Supple Respiratory/Lung Sounds: Positive: Clear to Auscultation Cardiovascular: Positive: Normal Abdomen Description: Positive: Nontender Musculoskeletal: Positive: Normal Neurological: Positive: Normal Psychiatric: Positive: Normal AVPU Assessment: Alert - Ranjan Coma Scale Best Eye Response: 4 - Spontaneous Best Motor Response: 6 - Obeys Commands Best Verbal Response: 5 - Oriented Coma Scale Total: 15 Diagnostics - Vital Signs Vital Signs Temp Pulse Resp BP Pulse Ox 01/12/19 02:00 81 28 91 01/12/19 01:40 81 32 140/84 92 01/12/19 01:10 86 18 142/89 94 01/12/19 01:00 84 19 93 01/12/19 00:53 18 01/12/19 00:40 83 20 131/86 94 01/12/19 00:10 83 20 146/89 94 01/12/19 00:00 83 21 93 01/11/19 23:40 80 20 132/84 93 01/11/19 23:10 85 27 144/88 93 01/11/19 23:01 83 20 95 01/11/19 22:40 85 21 132/90 94 01/11/19 22:01 81 20 94 01/11/19 21:52 18 01/11/19 21:40 26 142/88 01/11/19 21:10 80 22 147/98 93 01/11/19 21:01 79 23 94 01/11/19 20:49 74 27 94 01/11/19 20:40 77 24 137/82 94 01/11/19 20:10 81 38 129/96 94 01/11/19 20:02 81 20 94 01/11/19 19:43 85 27 138/91 95 01/11/19 19:09 84 23 139/86 95 01/11/19 19:00 83 25 96 01/11/19 18:40 83 20 131/81 95 01/11/19 18:11 86 21 97 01/11/19 18:09 87 17 130/77 97 01/11/19 18:00 100.2 F 83 18 130/101 97 - Laboratory Lab Results: Lab Results 01/11/19 01/11/19 01/11/19 Range/Units 18:39 18:39 18:39 WBC 9.1 (3.5-10.8) 10^3/uL RBC 3.99 (3.70-4.87) 10^6 /uL Hgb 11.9 L (12.0-16.0) g/dL Hct 36 (33-41) % MCV 90 (80-97) fL MCH 30 (27-31) pg MCHC 33 (31-36) g/dL RDW 15 (10.5-15) % Plt Count 344 (150-450) 10^3/uL MPV 7.6 (7.4-10.4) fL Neut % (Auto) 76.9 % Lymph % (Auto) 6.2 % [place] % (Auto) 14.8 % Eos % (Auto) 1.9 % Baso % (Auto) 0.2 % Absolute Neuts (auto) 7.0 (1.5-7.7) 10^3/ul Absolute Lymphs (auto) 0.6 L (1.0-4.8) 10^3/ul Absolute Monos (auto) 1.3 H (0-0.8) 10^3/ul Absolute Eos (auto) 0.2 (0-0.6) 10^3/ul Absolute Basos (auto) 0 (0-0.2) 10^3/ul Absolute Nucleated RBC 0 10^3/ul Nucleated RBC % 0 APTT (26.0-36.3) seconds Sodium 134 L (135-145) mmol/L Potassium 3.8 (3.5-5.0) mmol/L Chloride 96 L (101-111) mmol/L Carbon Dioxide 30 (22-32) mmol/L Anion Gap 8 (2-11) mmol/L BUN 8 (6-24) mg/dL Creatinine 0.60 (0.51-0.95) mg/dL Est GFR ( Amer) 121.4 (>60) Est GFR (Non-Af Amer) 100.3 (>60) BUN/Creatinine Ratio 13.3 (8-20) Glucose 160 H (70-100) mg/dL Lactic Acid 1.0 (0.5-2.0) mmol/L Calcium 9.1 (8.6-10.3) mg/dL Total Bilirubin 0.30 (0.2-1.0) mg/dL AST 8 L (13-39) U/L ALT 7 (7-52) U/L Alkaline Phosphatase 55 (34-104) U/L Troponin I 0.00 (<0.04) ng/mL C-Reactive Protein 112.16 H (<8.01) mg/L Total Protein 6.1 L (6.4-8.9) g/dL Albumin 3.5 (3.2-5.2) g/dL Globulin 2.6 (2-4) g/dL Albumin/Globulin Ratio 1.3 (1-3) Lipase < 10 L (11.0-82.0) U/L Urine Color Urine Appearance Urine pH (5-9) Ur Specific Sunbright (1.010-1.030) Urine Protein (Negative) Urine Ketones (Negative) Urine Blood (Negative) Urine Nitrate (Negative) Urine Bilirubin (Negative) Urine Urobilinogen (Negative) Ur Leukocyte Esterase (Negative) Ur Squamous Epith Cells (Absent) Ur Transition Epith Cell (Absent) Hyaline Casts (Absent) Granular Casts (Absent) Urine Glucose (Negative) 01/11/19 01/11/19 01/11/19 Range/Units 21:33 21:52 22:40 WBC (3.5-10.8) 10^3/uL RBC (3.70-4.87) 10^6 /uL Hgb (12.0-16.0) g/dL Hct (33-41) % MCV (80-97) fL MCH (27-31) pg MCHC (31-36) g/dL RDW (10.5-15) % Plt Count (150-450) 10^3/uL MPV (7.4-10.4) fL Neut % (Auto) % Lymph % (Auto) % [place] % (Auto) % Eos % (Auto) % Baso % (Auto) % Absolute Neuts (auto) (1.5-7.7) 10^3/ul Absolute Lymphs (auto) (1.0-4.8) 10^3/ul Absolute Monos (auto) (0-0.8) 10^3/ul Absolute Eos (auto) (0-0.6) 10^3/ul Absolute Basos (auto) (0-0.2) 10^3/ul Absolute Nucleated RBC 10^3/ul Nucleated RBC % APTT (26.0-36.3) seconds Sodium (135-145) mmol/L Potassium (3.5-5.0) mmol/L Chloride (101-111) mmol/L Carbon Dioxide (22-32) mmol/L Anion Gap (2-11) mmol/L BUN 9 (6-24) mg/dL Creatinine 0.54 (0.51-0.95) mg/dL Est GFR ( Amer) 137.1 (>60) Est GFR (Non-Af Amer) 113.3 (>60) BUN/Creatinine Ratio (8-20) Glucose (70-100) mg/dL Lactic Acid (0.5-2.0) mmol/L Calcium (8.6-10.3) mg/dL Total Bilirubin (0.2-1.0) mg/dL AST (13-39) U/L ALT (7-52) U/L Alkaline Phosphatase (34-104) U/L Troponin I 0.00 (<0.04) ng/mL C-Reactive Protein (<8.01) mg/L Total Protein (6.4-8.9) g/dL Albumin (3.2-5.2) g/dL Globulin (2-4) g/dL Albumin/Globulin Ratio (1-3) Lipase (11.0-82.0) U/L Urine Color Yellow Urine Appearance Cloudy Urine pH 7.0 (5-9) Ur Specific Sunbright 1.039 H (1.010-1.030) Urine Protein Negative (Negative) Urine Ketones Negative (Negative) Urine Blood Negative (Negative) Urine Nitrate Negative (Negative) Urine Bilirubin Negative (Negative) Urine Urobilinogen Negative (Negative) Ur Leukocyte Esterase Trace A (Negative) Ur Squamous Epith Cells Present A (Absent) Ur Transition Epith Cell Present A (Absent) Hyaline Casts Present A (Absent) Granular Casts Present A (Absent) Urine Glucose 1+(50 mg/dl) A (Negative) 01/11/19 01/12/19 01/12/19 Range/Units 22:40 00:24 00:25 WBC 9.9 (3.5-10.8) 10^3/uL RBC 3.77 (3.70-4.87) 10^6 /uL Hgb 11.2 L (12.0-16.0) g/dL Hct 34 (33-41) % MCV 91 (80-97) fL MCH 30 (27-31) pg MCHC 33 (31-36) g/dL RDW 15 (10.5-15) % Plt Count 314 (150-450) 10^3/uL MPV 7.6 (7.4-10.4) fL Neut % (Auto) 75.7 % Lymph % (Auto) 7.4 % [place] % (Auto) 15.1 % Eos % (Auto) 1.4 % Baso % (Auto) 0.4 % Absolute Neuts (auto) 7.5 (1.5-7.7) 10^3/ul Absolute Lymphs (auto) 0.7 L (1.0-4.8) 10^3/ul Absolute Monos (auto) 1.5 H (0-0.8) 10^3/ul Absolute Eos (auto) 0.1 (0-0.6) 10^3/ul Absolute Basos (auto) 0 (0-0.2) 10^3/ul Absolute Nucleated RBC 0 10^3/ul Nucleated RBC % 0 APTT 126.7 H* (26.0-36.3) seconds Sodium (135-145) mmol/L Potassium (3.5-5.0) mmol/L Chloride (101-111) mmol/L Carbon Dioxide (22-32) mmol/L Anion Gap (2-11) mmol/L BUN (6-24) mg/dL Creatinine (0.51-0.95) mg/dL Est GFR ( Amer) (>60) Est GFR (Non-Af Amer) (>60) BUN/Creatinine Ratio (8-20) Glucose (70-100) mg/dL Lactic Acid (0.5-2.0) mmol/L Calcium (8.6-10.3) mg/dL Total Bilirubin (0.2-1.0) mg/dL AST (13-39) U/L ALT (7-52) U/L Alkaline Phosphatase (34-104) U/L Troponin I 0.00 (<0.04) ng/mL C-Reactive Protein (<8.01) mg/L Total Protein (6.4-8.9) g/dL Albumin (3.2-5.2) g/dL Globulin (2-4) g/dL Albumin/Globulin Ratio (1-3) Lipase (11.0-82.0) U/L Urine Color Urine Appearance Urine pH (5-9) Ur Specific [place] (1.010-1.030) Urine Protein (Negative) Urine Ketones (Negative) Urine Blood (Negative) Urine Nitrate (Negative) Urine Bilirubin (Negative) Urine Urobilinogen (Negative) Ur Leukocyte Esterase (Negative) Ur Squamous Epith Cells (Absent) Ur Transition Epith Cell (Absent) Hyaline Casts (Absent) Granular Casts (Absent) Urine Glucose (Negative) Result Diagrams: 01/11/19 22:40 01/11/19 22:40 Lab Statement: Any lab studies that have been ordered have been reviewed, and results considered in the medical decision making process. Chest Pain Course/Dx - Course Course Of Treatment: Complains of bilateral lower chest pain 1-2 weeks. Patient states she went to [facility] ED for same, was told she had fluid on the hard, has appointment with cardiology scheduled this coming Wednesday. Patient states pain was too persistent to wait until apartment with cardiology. Patient denies radiation of pain, SOB, fever, cough, sore throat, N/V/D, diaphoresis, lightheadedness, abdominal pain, change in urine, change in BM. Medical history is migraines, asthma, carditis dyskinesia from taking Compazine. Patient states she stepped Compazine 1 year ago with slow but progressive improvement in symptoms. States she had CHF when she was receiving chemotherapy for breast cancer 10 years ago. Patient in remission from breast cancer. Denies any other cardiac history. No anti-coagulation. Physical exam: Lung sounds clear to auscultation bilaterally. Patient tender to palpation lower chest wall bilaterally. No evidence of trauma. Abdomen soft nontender. No peripheral edema. Calves soft nontender. Vital signs within normal limits. Labs unremarkable. Chest x-ray unremarkable. EKG sinus rhythm. CTA chest positive for acute thrombus within the anterior aspect of the upper abdominal aorta with thrombus extending into and including the celiac axis including likely occlusion of the proximal aspect of the splenic and hepatic arteries. There is fat stranding surrounding the involved occluded arteries consistent with acute occlusion. Patient transferred to [facility] for vascular surgery. Accepting physician vascular surgery. Vital signs remain stable. Heparin drip initiated but then discontinued for 1 hour per protocol for PTT of 126. Pain controlled with morphine 4 mg IV. - Diagnoses Provider Diagnoses: Aortic thrombus - Critical Care Time Critical Care Time: 75-104 min Discharge - Sign-Out/Discharge Documenting (check all that apply): Patient Departure Patient Received Moderate/Deep Sedation with Procedure: No - Discharge Plan Condition: Fair Disposition: ADMITTED TO OTHER HOSPITAL Referrals: Melia Marin MD [Primary Care Provider] - - Billing Disposition and Condition Condition: FAIR Disposition: Admitted to Other Hospital
[2019-01-12 04:00] VITALS: BP 111/64
== END 2019-01-12 04:29 | disposition short-term general hospital (02) ==
LOC: ED 17:50
DX: I74.10 Embolism and thrombosis of unspecified parts of aorta (principal); E78.00 Pure hypercholesterolemia, unspecified; J45.909 Unspecified asthma, uncomplicated; K21.9 Gastro-esophageal reflux disease without esophagitis; F41.9 Anxiety disorder, unspecified; Z88.8 Allergy status to other drugs, medicaments and biological substances; Z88.5 Allergy status to narcotic agent; Z88.2 Allergy status to sulfonamides
CPT/HCPCS: 36415; 71046; 71275; 80053; 81003; 81015; 82565; 83605; 83690; 84484; 84520; 85025; 85730; 86140; 87086; 93005; 96365; 96375; 96376; 99285; 99291; 99292; J1644; J2270; J2405; Q9967

== ENCOUNTER 2019-01-31 19:50 | Emergency (ER) | payer MEDICARE, MEDICAID ==
--- OUTSIDE RECORDS SUMMARY | 2019-01-31 20:18 | XMS REPORT | Continuity of Care Document ---
:1955 External Reference #:[id number] Author Name Antony Pryor Care Team Providers Name Role Phone Melia Marin MD Primary Care Physician Unavailable Payers Date Identification Numbers Payment Provider Subscriber Effective: 2002 Policy Number: [id number] Medicare Barbara Sorto PayID: [id number] [address] [place] [address] Policy Number: [id number] Medicaid Barbara Sorto Group Name: 1 1 [address] PayID: [id number] [place] [address] Expires: 2018 Policy Number: [id number] Pako Sorto PayID: [id number] [address] [place] [address] Advance Directives Description No Information Available Problems Active Problems Provider Date Refractory migraine without aura Charles Quiñones M.D. Onset: 10/02/2014 Localized, primary osteoarthritis Evans Vuong M.D. Onset: 06/21/2015 Family History Description No Information Available Social History Type Date Description Comments Sex Unknown ETOH Use Denies alcohol use Tobacco Use Start: Unknown Patient has never smoked Smoking Status Reviewed: 12/20/18 Patient has never smoked Allergies, Adverse Reactions, Alerts Active Allergies Reaction Severity Comments Date Sulfa Antibiotics 03/21/2013 Dilaudid 03/21/2013 Oxycodone 03/21/2013 Imitrex 03/21/2013 Bentyl 09/19/2013 Namenda Cough 12/19/2013 Medications Active Medications SIG Qnty Indications Ordering Date Provider Lidocaine Viscous Take 4mL 100ml G43.019 Charles Leggett 12/20/2018 2% intranasally with Vani Quiñones Solution a swab daily, as needed for migraines . May take up to 3 times a week. Dihydroergotamine Inject One ML 10units Charles Leggett 09/06/2012 Mesylate Every 8 Hours as Vani Quiñones 1mg/ml Solution Needed For Migraine. Maximum Daily Dose=3MG Max Weekly Dose Is 6 MG Doxycycline Monohydrate Unknown 100mg Capsules Triaminolone Acetone prn Unknown Cream .1% Ammonium Lactate use twice a day Unknown 12% Cream CBD Oil Unknown Omeprazole 1 by mouth every Unknown 20mg Capsules DR day Vicodin 1-2 every 4 hours Unknown 5-300mg Tablets as needed Calcium 500 once a day Unknown [phone]-mg-Unit Tablets Albuterol Sulfate 1 application Unknown every 4 hours as (2.5mg/3ML) 0.083% needed Nebulizer Sucralfate 1 tab a day Unknown 1gm Tablets Botox 1 injection every Unknown Solution Rec 3 months Lexapro 1 1/2 tab by mouth Unknown 20mg Tablets every day Cyclobenzaprine HCL one by mouth three Unknown 10mg times a day Tablets Krill Oil 1 capsule by mouth Unknown 500mg Capsules daily Aloe Vera 1 tab po qd Unknown Tablet Magnesium 1 by mouth every Unknown 400mg Capsules day Montelukast Sodium 1 by mouth every Unknown 10mg night Tablets Fenofibrate Micronized 1 by mouth every Unknown day 145mg Capsules Symbicort 2 puff twice a day Unknown 80-4.5mcg/Act prn Aerosol Thalomid qd for cough Unknown 100mg Capsules Xanax 1 tablet by mouth Unknown 2mg Tablets three daily History Medications Ondansetron 1 three times a 90tabs G24.01 Charles Leggett 10/19/2017 - 4mg Tablets Dispers day as needed Vani Quiñones 12/19/2018 for nausea Topiramate 2 in am and 2 120tabs Charles Leggett 12/27/2015 - 25mg Tablets every night at Vani Quiñones 10/12/2017 bedtime Prednisone 3 po x1 day 6tabs Charles Leggett 12/20/2015 - 20mg Tablets then 2 po x1 Vani Quiñones 01/20/2016 day then 1 po qd and stop Prednisone 3 po x1 day 6tapapa Leggett 11/27/2015 - 20mg Tablets then 2 po x1 Vani Quiñones 12/11/2015 day then 1 po qd and stop Cephalexin 1 by mouth qid 21caps Charles Leggett 02/27/2015 - 500mg Capsules Vani Quiñones 06/06/2015 Thalomid Other Ordering 02/06/2014 - 100mg Capsules Provider 03/23/2014 Rizatriptan Benzoate 1 by mouth 10tabs Charles Leggett 12/19/2013 - 5mg twice a day as Vani Quiñones 06/20/2014 Tablets needed migraine max 2 d/wk do not take within 24 hours of Dhe Vicodin HP 1 tablet by 90tabs Lea Raines, 12/01/2013 - 10-300mg Tablets mouth every 8 [employer] 01/04/2015 hours as needed Vicodin 1 tablet po q 8 90tabs Charles Leggett 11/15/2013 - 10-325mg Tablets hours prn Vani Quiñones 12/01/2013 Prochlorperazine Maleate 1 tab twice a 60tabs Charles Leggett 05/05/2013 - 10mg day as needed Vani Quiñones 10/10/2018 Tablets for migraine. Maxalt-MEAT HOSTESS 1 twice a day 10tabs Charles Leggett 12/06/2012 - 10mg Tablets Dispers max 2 days/week Vani Quiñones 01/11/2013 as needed for headache Namenda 1 po bid 60tabs Charles Leggett 08/03/2012 - 10mg Tablets Vani Quiñones 12/19/2013 Hydrocodone 1 three times a 90tabs Charles Leggett 05/31/2012 - Bitartrate/Acetaminophen day pain Vani Quiñones 09/21/2012 10-300mg Tablets Proair HFA Unknown - 108(90Base) mcg/Act 06/06/2015 Aerosol Escitalopram Oxalate 1.5 tabs PO Unknown - 20mg daily 12/17/2015 Tablets EX-Lax 2 po prn Unknown - 15mg Tablets 06/06/2015 Hydrocodone-Acetaminophen 1 tab by mouth Unknown - every 8 hours 10/12/2017 10-325mg Tablets as needed migraine Methylprednisolone (Giovani) 4 po daily and Unknown - 4mg then as 06/06/2015 Tablets directed 5 days Zetia 1 by mouth Unknown - 10mg Tablets every day 10/10/2018 Tolterodine Tartrate 1 tab po qd Unknown - Tablets 08/30/2015 Metformin HCL 1 by mouth Unknown - 500mg Tablets every night 08/29/2015 Potassium otc once a day Unknown - 99mg Tablets 07/06/2017 Myrbetriq 1 by mouth Unknown - 50mg Tablets ER 24HR every day 10/12/2017 Tizanidine HCL 1 po q8h Unknown - 2mg Tablets 10/12/2017 Xanax 1 tablet by Unknown - 1mg Tablets mouth twice 12/19/2018 daily Sucralfate 1 by mouth Unknown - 1gm Tablets twcie a day 10/18/2017 Hydrocodone-Acetaminophen 1 tab by mouth Unknown - every 4 hours 12/19/2018 5-325mg Tablets as needed Ajovy inject once a Unknown - 225mg/1.5ML Soln Prefill month 10/10/2018 Syringe Escitalopram Oxalate 1 PO qd Unknown - 20mg 12/19/2013 Tablets Codeine Sulfate 1 PO Q 8h Unknown - 30mg Tablets 06/20/2014 Furosemide 1 PO qd Unknown - 20mg Tablets 06/06/2015 Clonazepam 1 PO qid Unknown - 1mg Tablets 09/28/2014 Zetia 1 po qd Unknown - 10mg Tablets 09/19/2013 Namenda 1 po bid 60tabs Unknown - 10mg Tablets 09/19/2013 Nexium 1 po qd 90units Unknown - 40mg Packet 10/12/2017 Dihydroergotamine inject 1 ml 10units Unknown - Mesylate every 8 hours 09/19/2013 1mg/ml Solution as needed for migraine max 3 mg/d and 6 mg/wk Vicodin HP 1 q6h prn 24tabs Unknown - 10-300mg Tablets 08/30/2013 Albuterol Sulfate 2 puffs four 1tabs Unknown - 2mg Tablets times a day as 10/12/2017 needed Calcium 1200 1 po qd 90units Unknown - [id number] 12/20/2018 Chewtabs Xanax XR 1 qid prn 30tabs Unknown - 1mg Tablets ER 24HR 09/19/2013 Singulair 1 po qd 90tabs Unknown - 10mg Tablets 09/19/2013 Flexeril 1 po tid 90tabs Unknown - 10mg Tablets 12/11/2015 Fish Oil Double Strength 1 po qd 30caps Unknown - 1200mg 10/12/2017 Capsules Aspirin Low Strength 1 po qd Unknown - 81mg 12/19/2018 Chewtabs Medications Administered in Office Medication SIG Qnty Indications Ordering Provider Date Synvisc Or Synvisc-One Evans Vuong M.D. 10/26/2018 Injection 1 MG Injection Synvisc Or Synvisc-One Evans Vuong M.D. 10/26/2018 Injection 1 MG Injection Depomedrol 40MG Evans Vuong M.D. 06/29/2018 Injection Depomedrol 40MG Evans Vuong M.D. 06/29/2018 Injection Depomedrol 40MG Evans Vuong M.D. 10/13/2017 Injection Depomedrol 40MG Evans Vuong M.D. 10/13/2017 Injection Depomedrol 40MG Evans Vuong M.D. 07/07/2017 Injection Depomedrol 40MG Evans Vuong M.D. 07/07/2017 Injection Depomedrol 40MG Evans Vuong M.D. 03/03/2017 Injection Depomedrol 40MG Evans Vuong M.D. 03/03/2017 Injection Depomedrol 40MG Evans Vuong M.D. 11/04/2016 Injection Depomedrol 40MG Evans Vuong M.D. 11/04/2016 Injection Depomedrol 40MG Evans Vuong M.D. 07/01/2016 Injection Depomedrol 40MG Evans Vuong M.D. 07/01/2016 Injection Depomedrol 40MG Evans Vuong M.D. 02/26/2016 Injection Depomedrol 40MG Evans Vuong M.D. 02/26/2016 Injection Injection Onabotulinumtoxin Bello, Charles Quiñones M.D. 01/21/2016 1 Unit Injection Depomedrol 40MG Evans Vuong M.D. 10/23/2015 Injection Injection Onabotulinumtoxin Bello, Charles Quiñones M.D. 10/16/2015 1 Unit Injection Injection Onabotulinumtoxin A, Lea Raines, GEO 07/04/2015 1 Unit Injection Depomedrol 80MG Evans Vuong M.D. 06/21/2015 Injection Injection Onabotulinumtoxin A, Lea Raines, GEO 04/03/2015 1 Unit Injection Injection Onabotulinumtoxin A, Lea Raines, GEO 01/02/2015 1 Unit Injection Injection Onabotulinumtoxin Bello, Charles Quiñones M.D. 10/02/2014 1 Unit Injection Injection Onabotulinumtoxin Bello, Charles Quiñones M.D. 07/03/2014 1 Unit Injection Injection Onabotulinumtoxin Charels Monsalve M.D. 03/27/2014 1 Unit Injection Injection Onabotulinumtoxin Charles Monsalve M.D. 12/19/2013 1 Unit Injection Injection Onabotulinumtoxin Bello, Charles Quiñones M.D. 09/19/2013 1 Unit Injection Injection Onabotulinumtoxin Charles Monsalve M.D. 06/13/2013 1 Unit Injection Injection Onabotulinumtoxin Charles Monsalve M.D. 03/08/2013 1 Unit Injection Synvisc Or Synvisc-One Evans Vuong M.D. 12/13/2012 Injection 1 MG Injection Synvisc Or Synvisc-One Evans Vuong M.D. 12/13/2012 Injection 1 MG Injection Injection Onabotulinumtoxin A, Charles Quiñones M.D. 12/06/2012 1 Unit Injection Injection Onabotulinumtoxin Bello, Charles Quiñones M.D. 09/06/2012 1 Unit Injection Synvisc Or Synvisc-One Kvng Edmondson M.D. 06/30/2012 Injection 1 MG Injection Synvisc Or Synvisc-One Evans Vuong M.D. 06/21/2012 Injection 1 MG Injection Synvisc Or Synvisc-One Evans Vuong M.D. 06/14/2012 Injection 1 MG Injection Synvisc Or Synvisc-One Evans Vuong M.D. 06/14/2012 Injection 1 MG Injection Synvisc Or Synvisc-One Evans Vuong M.D. 06/14/2012 Injection 1 MG Injection Injection Onabotulinumtoxin A, Charles Quiñones M.D. 05/31/2012 1 Unit Injection Injection Onabotulinumtoxin A, Charles Quiñones M.D. 05/31/2012 1 Unit Injection Immunizations Description No Information Available Vital Signs [...] Information Available Procedures Date Code Description Status 10/26/201879739 Inject/Drain Joint/Bursa Major W/O US Completed 06/29/2018 Inject/Drain Joint/Bursa Major W/O US Completed 10/13/2017 Inject/Drain Joint/Bursa Major W/O US Completed 07/07/2017 Inject/Drain Joint/Bursa Major W/O US Completed 07/02/2017 42394 ECHO Transthorasic Realtime 2D W Doppler & Color Flow Hosp Completed 03/03/201706218 Inject/Drain Joint/Bursa Major W/O US Completed 11/04/201663607 Inject/Drain Joint/Bursa Major W/O US Completed 07/01/201607691 Inject/Drain Joint/Bursa Major W/O US Completed 02/26/201659443 Inject/Drain Joint/Bursa Major W/O US Completed 01/21/2016 23938 Chemodenervation Of Muscles Innervated By Facial Nerves, Completed Bilat 10/23/201591083 Inject/Drain Joint/Bursa Major W/O US Completed 10/23/201539041 Inject/Drain Joint/Bursa Major W/O US Completed 10/16/2015 96117 Chemodenervation Of Muscles Innervated By Facial Nerves, Completed Bilat 07/04/2015 49061 Chemodenervation Of Muscles Innervated By Facial Nerves, Completed Bilat 06/21/2015 64770 Inject/Drain Joint/Bursa Major W/O US Completed 04/03/2015 19924 Chemodenervation Of Muscles Innervated By Facial Nerves, Completed Bilat 01/02/2015 51541 Chemodenervation Of Muscles Innervated By Facial Nerves, Completed Bilat 10/02/2014 27790 Chemodenervation Of Muscles Innervated By Facial Nerves, Completed Bilat 07/03/2014 67221 Chemodenervation Of Muscles Innervated By Facial Nerves, Completed Bilat 05/29/2014 Inject/Drain Joint/Bursa Major W/O US Completed 05/22/2014 Inject/Drain Joint/Bursa Major W/O US Completed 05/15/2014 Inject/Drain Joint/Bursa Major W/O US Completed 04/24/2014 Inject/Drain Joint/Bursa Major W/O US Completed 03/27/2014 11585 Chemodenervation Of Muscles Innervated By Facial Nerves, Completed Bilat 02/06/2014 Inject/Drain Joint/Bursa Major W/O US Completed 12/19/2013 97440 Chemodenervation Of Muscles Innervated By Facial Nerves, Completed Bilat 10/03/2013 Inject/Drain Joint/Bursa Major W/O US Completed 09/19/2013 12583 Chemodenervation Of Muscles Innervated By Facial Nerves, Completed Bilat 06/13/2013 65183 Chemodenervation Of Muscles Innervated By Facial Nerves, Completed Bilat 03/08/2013 67658 Chemodenervation Of Muscles Innervated By Facial Nerves, Completed Bilat 12/13/2012 Inject/Drain Joint/Bursa Major W/O US Completed 12/06/2012 57485 Chemodenervation Of Muscles Innervated By Facial Nerves, Completed Bilat 09/06/2012 56023 Destruction W/Neurolytic Agent, Facial Nerve Muscle, Completed Unilateral 06/30/2012 Inject/Drain Joint/Bursa Major W/O US Completed 06/21/2012 Inject/Drain Joint/Bursa Major W/O US Completed 06/21/2012 Inject/Drain Joint/Bursa Major W/O US Completed 06/14/2012 Inject/Drain Joint/Bursa Major W/O US Completed 05/31/2012 60993 Destruction W/Neurolytic Agent, Facial Nerve Muscle, Completed Unilateral 10/21/2004 93247 ECHO/Stress Completed 10/21/2004 35641 Treadmill Interp/Report Only Completed 10/21/2004 48971 Stress Test Supervsn W/Out I/R Completed 09/29/2004 65971 ECHO/Stress Completed 09/29/2004 85820 Stress Test Completed Encounters Type Date Location Provider Dx Diagnosis Office Visit 10/26/2018 Orthopedic Evans Vuong, M17.0 Bilateral primary 1:30p [facility] M.[facility]. 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 knee M25.561 Pain in right knee M25.562 Pain in left knee Office Visit 08/30/2015 [place] Charles Leggett G43.019 Migraine w/o aura, 11:00a Neurologic Vani Quiñones intractable, [facility] without status migrainosus Office Visit 06/07/2015 Beckie Raines, 334.3 Cerebellar Ataxia 3:00p Neurologic FR[employer] Other [facility] 781.2 Gait Abnormality Office 05/22/2015 Orthopedic Services Narcisa 715.96 Osteoarthrosis Visit 9:45a Of ZAKI Foster-C Unspec Genlzd Or Localized Lower Leg Office 02/27/2015 Neurohospitalist Charles Leggett 346.11 Migraine W/O Aura Visit 10:45a Clinic Vani Quiñones W/Intractable W/O Status Migrainosus Office 07/03/2014 [place] [facility] Charles Leggett 346.11 Migraine W/O Aura Visit 2:00p Services Of Reuben Quiñones M.D. 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 Unspec Genlzd Or AT [place] Localized Lower Leg Office Visit 12/19/2013 Beckie Leggett 346.11 Migraine W/O Aura 3:00p Milly Quiñones M.D. W/Intractable W/O Services Of [employer] Status Migrainosus Office Visit 10/03/2013 Orthopedic Evans 715.96 Osteoarthrosis 1:15p Services Of Reuben Vuong M.D. Unspec Genlzd Or AT [place] Localized Lower Leg Office Visit 03/08/2013 Beckie Castro.11 Migraine W/O Aura 1:00p Milly Quiñones M.D. W/Intractable W/O Services Of [employer] Status Migrainosus Office Visit 02/07/2013 Orthopedic Evans 715.96 Osteoarthrosis 1:15p Services Of Reuben Vuong M.D. Unspec Genlzd Or AT [place] Localized Lower Leg Office Visit 12/27/2012 Orthopedic Evans 719.46 Pain Joint Lower Leg 11:30a Services Of Reuben Vuong M.D. AT [place] Office Visit 12/22/2012 Orthopedic Kvng 715.96 Osteoarthrosis 2:15p Services Of Reuben Edmondson M.D. Unspec Genlzd Or AT [place] Localized Lower Leg Office Visit 12/13/2012 Orthopedic Evans 715.96 Osteoarthrosis 3:15p Services Of Reuben Vuong M.D. Unspec Genlzd Or AT [place] Localized Lower Leg 726.61 Bursitis Tendinitis Pes Anserinus Office Visit 12/06/2012 Beckie Castro.11 Migraine W/O Aura 2:00p Milly Quiñones M.D. W/Intractable W/O Services [facility] [employer] Status Migrainosus Office Visit 09/06/2012 Beckie Castro.11 Migraine W/O Aura 2:00p Milly Quiñones M.D. W/Intractable W/O Services Of [employer] Status Migrainosus Office Visit 08/16/2012 Orthopedic Evans 715.96 Osteoarthrosis 1:30p Services Of Reuben Vuong M.D. Unspec Genlzd Or AT [place] Localized Lower Leg Office Visit 06/30/2012 Orthopedic Kvng 715.96 Osteoarthrosis 2:00p Services Of Tobias HajiD. Unspec Gengeoff Or AT [facility] Lower Leg Office Visit 05/31/2012 [place] Charles Leggett 346.11 Migraine W/O Aura 11:00a Neurologic Vani Quiñones W/Intractable W/O [facility] Status Migrainosus Office Visit 05/03/2012 Orthopedic Evans 715.96 Osteoarthrosis 3:00p [facility] Vani Vuong Unspec Genlleti Or AT [facility] Lower Leg Plan of Treatment Future Appointment(s):06/27/2019 2:45 pm - Charles Quiñones M.D. at [place] [facility]04/26/2019 1:00 pm - [facility] - Bear Quintero, NPG43.019 Migraine without aura, intractable, without status migrainosNew Medication:Lidocaine Viscous 2 % - Take 4mL intranasally with a swab daily, as needed for migraines . May take up to 3 times a week.Follow up:Please obtain ER records from [facility] in November. 6 MONTHS
--- NOTE | 2019-01-31 20:21 | ED ---
Psychiatric Complaint - HPI Summary HPI Summary: Pt is a 63 y/o female who presents to the ED c/o migraine headache and worsening depression. She has been very depressed since August 2018. 2 weeks ago her suicidal thoughts, depression, and anxiety began to worsen. Pt has been under recent stress due to family and financial issues. At 2:00 today she began to have a migraine HALL and constant chest tightness as well which she believes are due to her psychiatric symptoms. Pain is non-radiating. Headache pain is rated a 10/10 in severity, and chest tightness is rated a 7/10. She was recently diagnosed with a blood clot and is on Xarelto. Pt sees a counselor every other week, who states that her Xanax is not working. She is also prescribed Lexapro and medical marijuana. PMHx anxiety, depression, migraine. She denies any alcohol use, illicit drug use, or smoking. - History Of Current Complaint Chief Complaint: EDMentalHealth Time Seen by Provider: 01/31/19 20:19 Hx Obtained From: Patient Onset/Duration: Gradual Onset, Lasting Hours - 2:00, Worse Since Timing: Constant Character: Depressed Aggravating Factor(s): Recent Stress Related History: Positive For: Prior Psychiatric Issues Has Suicidal: Reports: Thoughts - Allergies/Home Medications Allergies/Adverse Reactions: Allergies Allergy/AdvReac Type Severity Reaction Status Date / Time hydromorphone [From Dilaudid] Allergy Vomiting Verified 01/31/19 20:08 memantine [From Namenda] Allergy Coughing Verified 01/31/19 20:08 oxycodone Allergy Vomiting Verified 01/31/19 20:08 Sulfa (Sulfonamide Allergy Rash And Verified 01/31/19 20:08 Antibiotics) Itching sumatriptan [From Imitrex] Allergy See Comment Verified 01/31/19 20:08 PMH/Surg Hx/FS Hx/Imm Hx Endocrine/Hematology History: Denies: Hx Diabetes Cardiovascular History: Reports: Hx Hypercholesterolemia Denies: Hx Coronary Artery Disease, Hx Hypertension Respiratory History: Reports: Hx Asthma, Hx Chronic Obstructive Pulmonary Disease (COPD) GI History: Reports: Hx Diverticulosis - diverticulitis, Hx Gastroesophageal Reflux Disease, Other GI Disorders - Chroninc constipation History: Reports: Hx Kidney Infection Musculoskeletal History: Reports: Hx Back Problems, Other Musculoskeletal History - Complex pain syndrome Neurological History: Reports: Hx Migraine, Other Neuro Impairments/Disorders - 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 Psychiatric History: Reports: Hx Anxiety - with panic attacks, Hx Depression Denies: Hx Eating Disorder, Hx of Violent Episodes Against Others - Cancer History Cancer Type, Location and Year: Breast cancer right breast Hx Chemotherapy: Yes - [id number] - Surgical History Surgery Procedure, Year, and Place: Jaw surgery (1969, 1972, 1990), Hysterectomy (1987), Spinal fusion C3-7, L4-S1, Sinus (2005), Baldder tvt (2001 , 2009, 2016), ORIF right ankle (2009), Infectious Disease History: No Infectious Disease History: Denies: Traveled Outside the [place] in Last 30 Days - Family History Known Family History: Positive: Non-Contributory - Social History Alcohol Use: Weekly Alcohol Amount: 1 glass wine Hx Substance Use: No Substance Use Type: Reports: None Hx Tobacco Use: No Smoking Status (MU): Never Smoked Tobacco Review of Systems Positive: Chest Pain - tightness Positive: Headache - migraine Positive: Anxious, Depressed, Other - SI All Other Systems Reviewed And Are Negative: Yes Physical Exam - Summary Physical Exam Summary: Appearance: chronically-ill appearing, no pain distress Skin: warm, dry, reflects adequate perfusion Head/face: normal Eyes: EOMI, MILKA ENT: mucous membranes moist Neck: supple, non-tender Respiratory: CTA, breath sounds present Cardiovascular: RRR, pulses symmetrical Abdomen: non-tender, soft Bowel Sounds: present Musculoskeletal: strength/ROM intact, walks with a cane Neuro: normal, sensory motor intact, A&Ox3 Psych: normal affect Triage Information Reviewed: Yes Vital Signs On Initial Exam: Initial Vitals Temp Pulse Resp BP Pulse Ox 98.7 F 83 16 143/91 97 01/31/19 20:00 01/31/19 20:00 01/31/19 20:00 01/31/19 20:00 01/31/19 20:00 Vital Signs Reviewed: Yes Procedures - Procedure Summary Procedure Summary: Nerve blocks for migraine headache: The first block was performed noninvasively with dripping 2% lidocaine in both nares onto the sphenopalatine ganglia. Then 1 cc of 2% lidocaine was atomized in both nares. The second block was performed in the posterior cervical neck at the level of C5. A cervical nerve block was performed with 1 cc of injected 2% lidocaine 1 cm off of midline on each side. These blocks resolved her headache. She tolerated this well without complication. Diagnostics - Vital Signs Vital Signs Temp Pulse Resp BP Pulse Ox 01/31/19 20:00 98.7 F 83 16 143/91 97 - Laboratory Result Diagrams: 01/31/19 20:43 01/31/19 20:43 Lab Statement: Any lab studies that have been ordered have been reviewed, and results considered in the medical decision making process. - EKG 20:18 Cardiac Rate: NL - 80 bpm EKG Rhythm: Sinus Rhythm ST Segment: Normal Summary of EKG Findings: Nl axis, nl intervals Re-Evaluation - Re-Evaluation First Eval Re-Evaluation Time: 21:15 Change: Improved Comment: Pt feels better after the injection. Her mental health issues have resolved. Course/Dx - Course Course Of Treatment: Patient with depression that is chronic in nature and worsened by unremitting headache. Her headache was resolved here with blocks that she has received outpatient before. She also receives Botox for them. She just had injections of the Botox yesterday which likely is not started to work yet. After her headache was resolved she felt as though her depression was controlled well enough to follow-up with her primary care physician and therapist. Contracts for safety and was discharged in good condition. - Differential Dx/Clinical Impression Differential Diagnosis/HQI/PQRI: Positive: Other - Chronic pain syndrome, chronic headache, chronic depression, suicidal thought Provider Diagnosis: Chronic depression, Chronic headaches Discharge - Sign-Out/Discharge Documenting (check all that apply): Patient Departure - Discharge Patient Received Moderate/Deep Sedation with Procedure: No - Discharge Plan Condition: Improved Disposition: HOME Patient Education Materials: Depression (ED), Acute Headache (ED) Referrals: Melia Marin MD [Primary Care Provider] - Additional Instructions: Follow-up with her counselor and her pain management doctor in [place] with a call tomorrow. Return if worse, new symptoms or other concerns. - Billing Disposition and Condition Condition: IMPROVED Disposition: Home - Attestation Statements Document Initiated by Scribe: Yes Documenting Scribe: Savana Sharma Provider For Whom Scribe is Documenting (Include Credential): Kalyan Aguiar MD Scribe Attestation: Savana Combs, scribed for Kalyan Aguiar MD on 02/01/19 at 0257. Scribe Documentation Reviewed: Yes Provider Attestation: The documentation as recorded by the scribe, Savana Sharma accurately reflects the service I personally performed and the decisions made by me, Kalyan Aguiar MD Status of Scribe Document: Viewed
[2019-01-31] MEDS ORDERED: Lidocaine 2% (CARDIAC)* 20 MG/ML 5 ML SYRINGE (100 MG) ONE (20:52)
[2019-01-31 20:57] LABS: Urine Appearance Clear; Urine Bilirubin Negative (Negative); Urine Blood Negative (Negative); Urine Color Straw; Urine Glucose Negative (Negative); Urine Ketones Negative (Negative); Urine Nitrite Negative (Negative); Urine Protein Negative (Negative); Urine Specific Gravity 1.004 (1.010-1.030); Urine Urobilinogen Negative (Negative)
[2019-01-31 21:06] LABS: ALT 13 U/L (7-52); AST 13 U/L (13-39); Albumin 4.3 g/dL (3.2-5.2); Albumin/Globulin Ratio 1.3 (1-3); Alkaline Phosphatase 58 U/L (34-104); Anion Gap 7 mmol/L (2-11); BUN/Creatinine Ratio 10.7 (8-20); Blood Urea Nitrogen 8 mg/dL (6-24); CO2 Carbon Dioxide 30 mmol/L (22-32); Calcium 9.6 mg/dL (8.6-10.3); Chloride 98 mmol/L (101-111); EGFR African American 93.8 (>60); EGFR Non-African American 77.6 (>60); Globulin 3.2 g/dL (2-4); Glucose 104 mg/dL (70-100); Potassium 4.2 mmol/L (3.5-5.0); Sodium 135 mmol/L (135-145); Total Protein 7.5 g/dL (6.4-8.9)
[2019-01-31 21:07] LABS: ABS Basophils 0.1 10^3/ul (0-0.2); ABS Eosinophils 0.2 10^3/ul (0-0.6); ABS Lymphocytes 0.8 10^3/ul (1.0-4.8); ABS Monocytes 0.5 10^3/ul (0-0.8); ABS Neutrophils 4.9 10^3/ul (1.5-7.7); Eosinophil % 2.5 %; Hematocrit 37 % (35-47); Hemoglobin 12.3 g/dL (12.0-16.0); Lymphocyte % 12.8 %; Mean Corpuscular HGB Conc 33 g/dL (31-36); Mean Corpuscular Hemoglobin 29 pg (27-31); Mean Corpuscular Volume 89 fL (80-97); Mean Platelet Volume 7.2 fL (7.4-10.4); Platelet Count 654 10^3/uL (150-450); Red Blood Count 4.22 10^6 /uL (3.70-4.87); Red Cell Distribution Width 15 % (10.5-15); White Blood Count 6.5 10^3/uL (3.5-10.8)
[2019-01-31 21:18] LABS: Urine Benzodiazepine Screen Presumptive Positive (None Detect); Urine Opiates Screen None Detected (None Detect)
[2019-01-31 21:31] VITALS: BP 131/81
[2019-01-31 21:38] LABS: TSH (Thyroid Stimulating Horm) 1.05 mcIU/mL (0.34-5.60)
[2019-01-31 21:39] LABS: Acetaminophen < 15 mcg/mL; Alcohol < 10 mg/dL (<10); Salicylate < 2.50 mg/dL (<30)
== END 2019-01-31 21:30 | disposition home or self-care (01) ==
LOC: ED 19:50
DX: F32.9 Major depressive disorder, single episode, unspecified (principal); G89.29 Other chronic pain; R51 Headache; E78.00 Pure hypercholesterolemia, unspecified; J44.9 Chronic obstructive pulmonary disease, unspecified; K21.9 Gastro-esophageal reflux disease without esophagitis; K57.90 Diverticulosis of intestine, part unspecified, without perforation or abscess without bleeding; F41.0 Panic disorder [episodic paroxysmal anxiety]; Z88.8 Allergy status to other drugs, medicaments and biological substances; Z88.2 Allergy status to sulfonamides; Z86.718 Personal history of other venous thrombosis and embolism; Z79.01 Long term (current) use of anticoagulants
CPT/HCPCS: 36415; 80053; 80307; 80320; 80329; 81003; 84443; 85025; 93005; 99281; G0480

== ENCOUNTER 2019-02-01 15:37 | Inpatient (IN) | payer MEDICARE, MEDICAID ==
--- NOTE | 2019-02-01 16:24 | ED ---
Psychiatric Complaint - HPI Summary HPI Summary: A 63 y/o female presents to [facility] with a chief complaint of jumbled thoughts for the past couple months. She reportedly has had difficulty completing daily tasks. She also reports having difficulty with migraines. When she was last in the ED, medication did help her migraine but her jumbled thoughts remained. She has a Hx of depression. The patient denies any SI or HI. - History Of Current Complaint Chief Complaint: EDPsychosocial Time Seen by Provider: 02/01/19 15:55 Hx Obtained From: Patient Onset/Duration: Lasting Weeks, Still Present Timing: Constant Severity Initially: Mild Severity Currently: Mild Character: Depressed Aggravating Factor(s): Nothing Alleviating Factor(s): Nothing Associated Signs And Symptoms: Positive: Negative Related History: Positive For: Prior Psychiatric Issues Has Suicidal: Denies: Thoughts Has Homicidal: Denies: Thoughts - Allergies/Home Medications Allergies/Adverse Reactions: Allergies Allergy/AdvReac Type Severity Reaction Status Date / Time deutetrabenazine Allergy See Comment Verified 02/01/19 15:45 [From Austedo] erenumab-aooe Allergy Unknown Verified 02/01/19 15:45 [From Aimovig Autoinjector] Reaction Details [id number]-vfrm Allergy Constipatio Verified 02/01/19 21:27 [From Ajovy] n hydromorphone [From Dilaudid] Allergy Vomiting Verified 02/01/19 15:43 memantine [From Namenda] Allergy Coughing Verified 02/01/19 15:43 oxycodone Allergy Vomiting Verified 02/01/19 15:43 prochlorperazine Allergy See Comment Verified 02/01/19 15:45 [From Compazine] Sulfa (Sulfonamide Allergy Rash And Verified 02/01/19 15:43 Antibiotics) Itching sumatriptan [From Imitrex] Allergy See Comment Verified 02/01/19 15:43 Home Medications: Home Medications Aspirin 81 mg CHEW TAB* [Aspirin Low Dose TAB*] 81 mg PO DAILY 02/01/19 [ History Confirmed 02/01/19] Lidocaine 1 mg INTRANASAL DAILY PRN 02/01/19 [History Confirmed 02/01/19] Polyethylene Glycol 3350* [Miralax*] 17 gm PO DAILY PRN 02/01/19 [History Confirmed 02/01/19] Rivaroxaban TAB(*) [Xarelto 15 mg(*)] 15 mg PO BID 02/01/19 [History Confirmed 02/01/19] PMH/Surg Hx/FS Hx/Imm Hx Endocrine/Hematology History: Denies: Hx Diabetes Cardiovascular History: Reports: Hx Hypercholesterolemia Denies: Hx Coronary Artery Disease, Hx Hypertension Respiratory History: Reports: Hx Asthma, Hx Chronic Obstructive Pulmonary Disease (COPD) GI History: Reports: Hx Diverticulosis - diverticulitis, Hx Gastroesophageal Reflux Disease, Other GI Disorders - Chroninc constipation History: Reports: Hx Kidney Infection Musculoskeletal History: Reports: Hx Back Problems, Other Musculoskeletal History - Complex pain syndrome Neurological History: Reports: Hx Migraine, Other Neuro Impairments/Disorders - 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 Psychiatric History: Reports: Hx Anxiety - with panic attacks, Hx Depression Denies: Hx Eating Disorder, Hx of Violent Episodes Against Others - Cancer History Cancer Type, Location and Year: Breast cancer right breast Hx Chemotherapy: Yes - [id number] - Surgical History Surgery Procedure, Year, and Place: Jaw surgery (1969, 1972, 1990), Hysterectomy (1987), Spinal fusion C3-7, L4-S1, Sinus (2005), Baldder tvt (2001 , 2009, 2016), ORIF right ankle (2009), Infectious Disease History: No Infectious Disease History: Denies: Traveled Outside the [place] in Last 30 Days - Family History Known Family History: Positive: Non-Contributory - Social History Alcohol Use: None Alcohol Amount: 1 glass wine Hx Substance Use: No Substance Use Type: Reports: None Hx Tobacco Use: No Smoking Status (MU): Never Smoked Tobacco Review of Systems Negative: Fever Neurological: Other - positive: migraine Psychological: Other - positive: jumbled thoughts, negative: SI, HI All Other Systems Reviewed And Are Negative: Yes Physical Exam - Summary Physical Exam Summary: Appearance: Well-appearing, Well-nourished, lying in bed comfortable Skin: Warm, dry, no obvious rash Eyes: sclera anicteric, no conjunctival pallor ENT: mucous membranes moist Neck: deferred Respiratory: No signs of respiratory distress Cardiovascular: Appears well perfused, pulses are nml Abdomen: deferred Musculoskeletal: Moving all 4 extremities without obvious discomfort Neurological: Awake and alert, mentation is normal, speech is fluent and appropriate Psychiatric: affect is normal, does not appear anxious or depressed Triage Information Reviewed: Yes Vital Signs On Initial Exam: Initial Vitals Temp Pulse Resp BP Pulse Ox 98.9 F 91 18 136/92 97 02/01/19 15:39 02/01/19 15:39 02/01/19 15:39 02/01/19 15:39 02/01/19 15:39 Vital Signs Reviewed: Yes Diagnostics - Vital Signs Vital Signs Temp Pulse Resp BP Pulse Ox 02/01/19 15:39 98.9 F 91 18 136/92 97 - Laboratory Result Diagrams: 02/01/19 16:36 02/01/19 16:36 Lab Statement: Any lab studies that have been ordered have been reviewed, and results considered in the medical decision making process. Re-Evaluation - Re-Evaluation First Eval Re-Evaluation Time: 18:25 Change: Unchanged Comment: Pt medically cleared for MHE. Course/Dx - Course Course Of Treatment: A 63 y/o female presents to [facility] with a chief complaint of jumbled thoughts for the past couple months. She reportedly has had difficulty completing daily tasks. The physical exam was unremarkable. Bloodwork , chemistries, urines and toxicology obtained. The patient has been medically cleared for MHE. Per mental health check embosser, Dr. Pratt has decided that the patient will be a voluntary admit. Dx: mood disorder. - Differential Dx/Clinical Impression Provider Diagnosis: Mood disorder - Physician Notifications Discussed Care Of Patient With: Shakir Pratt Time Discussed With Above Provider: 21:09 Instructed by Provider To: Other - Per mental health check embosser, Dr. Pratt has decided that the patient will be a voluntary admit. Dx: mood disorder. Discharge - Sign-Out/Discharge Documenting (check all that apply): Patient Departure - admit Patient Received Moderate/Deep Sedation with Procedure: No - Discharge Plan Condition: Fair Disposition: [place]ATRIC [facility] [place] Billing Disposition and Condition Condition: FAIR Disposition: Psychiatric Facility [facility] [place] - Attestation Statements Document Initiated by Scribe: Yes Documenting Scribe: Adriano Gaviria Provider For Whom Damian is Documenting (Include Credential): Darryl Rodgers MD Scribe Attestation: Adriano Combs scribed for Darryl Rodgers MD on 02/03/19 at 1046. Scribe Documentation Reviewed: Yes Provider Attestation: The documentation as recorded by the cristinaibe, Adriano Gaviria accurately reflects the service I personally performed and the decisions made by me, Darryl Rodgers MD Status of Scribe Document: Viewed
[2019-02-01 16:45] LABS: ABS Eosinophils 0.1 10^3/ul (0-0.6); ABS Lymphocytes 0.7 10^3/ul (1.0-4.8); ABS Monocytes 0.5 10^3/ul (0-0.8); ABS Neutrophils 5.1 10^3/ul (1.5-7.7); Eosinophil % 1.7 %; Hematocrit 38 % (35-47); Hemoglobin 12.5 g/dL (12.0-16.0); Lymphocyte % 10.8 %; Mean Corpuscular HGB Conc 33 g/dL (31-36); Mean Corpuscular Hemoglobin 30 pg (27-31); Mean Corpuscular Volume 90 fL (80-97); Mean Platelet Volume 7.2 fL (7.4-10.4); Nucleated Red Blood Cells % 0.1; Platelet Count 655 10^3/uL (150-450); Red Cell Distribution Width 15 % (10.5-15); White Blood Count 6.4 10^3/uL (3.5-10.8)
[2019-02-01 17:00] LABS: Urine Appearance Clear; Urine Bilirubin Negative (Negative); Urine Blood Negative (Negative); Urine Color Yellow; Urine Glucose Negative (Negative); Urine Ketones Negative (Negative); Urine Nitrite Negative (Negative); Urine Protein Negative (Negative); Urine Specific Gravity 1.013 (1.010-1.030); Urine Urobilinogen Negative (Negative)
[2019-02-01 17:21] LABS: ALT 13 U/L (7-52); AST 15 U/L (13-39); Acetaminophen < 15 mcg/mL; Albumin 4.2 g/dL (3.2-5.2); Albumin/Globulin Ratio 1.4 (1-3); Alcohol < 10 mg/dL (<10); Alkaline Phosphatase 52 U/L (34-104); Anion Gap 8 mmol/L (2-11); BUN/Creatinine Ratio 10.5 (8-20); Blood Urea Nitrogen 8 mg/dL (6-24); CO2 Carbon Dioxide 27 mmol/L (22-32); Calcium 9.8 mg/dL (8.6-10.3); Chloride 102 mmol/L (101-111); EGFR African American 92.4 (>60); EGFR Non-African American 76.4 (>60); Glucose 168 mg/dL (70-100); Potassium 3.6 mmol/L (3.5-5.0); Salicylate < 2.50 mg/dL (<30); Sodium 137 mmol/L (135-145); Total Protein 7.2 g/dL (6.4-8.9)
[2019-02-01 17:26] LABS: Urine Benzodiazepine Screen Presumptive Positive (None Detect); Urine Opiates Screen None Detected (None Detect)
[2019-02-01 17:35] LABS: TSH (Thyroid Stimulating Horm) 0.55 mcIU/mL (0.34-5.60)
[2019-02-01] MEDS ORDERED: ALPRAZolam TAB* 0.5 MG PO ONE (18:03)
[2019-02-01] MEDS ORDERED: Rivaroxaban TAB(*) 15 MG PO ONE (18:03)
[2019-02-01] MEDS ORDERED: Butalb/Acetamin/Caff TAB* 1 TAB PO ONE (19:51)
[2019-02-01] MEDS ORDERED: Al Hydrox/Mg Hydrox/Simet LIQ* 30 ML UDC PO PRN (23:45)
[2019-02-02] MEDS ORDERED: Butalb/Acetamin/Caff TAB* 1 TAB PO ONE (00:25)
[2019-02-02] MEDS: Cyclobenzaprine TAB* 10 MG PO PRN ×2 (01:25→09:15)
[2019-02-02] MEDS ORDERED: AMMONIUM LACTATE 12% TOPICAL PRN (01:33)
[2019-02-02] MEDS ORDERED: Triamcinolone 0.025% OINT * 15 GM TUBE TOPICAL PRN (01:45)
[2019-02-02] MEDS: Vitamin THERAPEUTIC TAB PO SCH (09:11)
[2019-02-02] MEDS: ALPRAZolam TAB* 0.5 MG PO SCH ×3 (09:11→20:30)
[2019-02-02] MEDS: Pantoprazole TAB * 40 MG TAB PO SCH (09:12)
[2019-02-02] MEDS: Aspirin 81 mg CHEW TAB* 81 MG TAB.CHEW PO SCH (09:12)
[2019-02-02] MEDS: Sucralfate TAB* 1 GM PO SCH ×2 (09:12→20:32)
[2019-02-02] MEDS: Magnesium Oxide TAB* 400 MG PO SCH (09:12)
[2019-02-02] MEDS: Escitalopram * 20 MG TABLET PO SCH (09:13)
[2019-02-02] MEDS: Rivaroxaban TAB(*) 15 MG PO SCH ×2 (09:13→20:31)
[2019-02-02] MEDS: Fenofibrate(NF) 145 MG TAB PO SCH (09:19)
[2019-02-02] MEDS: ALOE VERA PO SCH (09:19)
[2019-02-02] MEDS: KRILL OIL PO SCH (09:19)
[2019-02-02] MEDS: PTO: Albuterol HFA INHALER* 8 gm MDI INH PRN ×2 (11:05→15:41)
--- NOTE | 2019-02-02 11:51 | PN ---
BSU: Group Therapy Note - Service Type Service Type: [id number] Group Psychotherapy - Cognitive Behavioral Group Therapy ( CBT):Patient attended CBT programming this morning and presented with flat affect that did not vary with discussion. Although responsive to direct prompts to respond to questions, patient did not engage in spontaneous conversation.
[2019-02-02] MEDS: PTO: Budesonide/Formote 160/4.5(NF) MDI INH SCH (14:02)
[2019-02-02] MEDS: Acetaminophen TAB* 325 MG PO PRN (15:42)
[2019-02-02] MEDS ORDERED: ALPRAZolam TAB* 0.5 MG PO PRN (17:06)
[2019-02-02] MEDS: Dihydroergotamine (D.H.E.)* 1 MG/ML 1 ML AMP IM PRN ×2 (17:07→19:45)
[2019-02-02] MEDS: Montelukast Sodium TAB* 10 MG PO SCH (20:31)
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
[2019-02-03] MEDS: PTO: Budesonide/Formote 160/4.5(NF) MDI INH SCH (08:07)
[2019-02-03] MEDS: Sucralfate TAB* 1 GM PO SCH ×2 (08:07→20:48)
[2019-02-03] MEDS: Magnesium Oxide TAB* 400 MG PO SCH (08:07)
[2019-02-03] MEDS: Rivaroxaban TAB(*) 15 MG PO SCH ×2 (08:08→22:18)
[2019-02-03] MEDS: Pantoprazole TAB * 40 MG TAB PO SCH (08:08)
[2019-02-03] MEDS: Escitalopram * 20 MG TABLET PO SCH (08:08)
[2019-02-03] MEDS: Vitamin THERAPEUTIC TAB PO SCH (08:08)
[2019-02-03] MEDS: Aspirin 81 mg CHEW TAB* 81 MG TAB.CHEW PO SCH (08:08)
[2019-02-03] MEDS: ALPRAZolam TAB* 0.5 MG PO SCH ×3 (08:09→20:49)
[2019-02-03] MEDS: KRILL OIL PO SCH (08:12)
[2019-02-03] MEDS: ALOE VERA PO SCH (08:12)
[2019-02-03] MEDS: Fenofibrate(NF) 145 MG TAB PO SCH (08:12)
[2019-02-03] MEDS: Acetaminophen TAB* 325 MG PO PRN ×3 (08:14→20:02)
--- NOTE | 2019-02-03 11:23 | PN ---
BSU: Group Therapy Note - Service Type Service Type: [id number] Group Psychotherapy - Cognitive Behavioral Group Therapy ( CBT):Patient was attentive and participatory in CBT programming this morning, and remained in good behavioral control. Patient expressed positive insights regarding relevant treatment interventions and goals.
[2019-02-03] MEDS: Dihydroergotamine (D.H.E.)* 1 MG/ML 1 ML AMP IM PRN ×2 (14:01→15:19)
[2019-02-03] MEDS ORDERED: ALPRAZolam TAB* 0.5 MG PO PRN (15:19)
--- NOTE | 2019-02-03 16:32 | PN ---
Subjective - Subjective Date of Service: 02/03/19 Service Type: [id number] Hosp care 25 min moderate complexity Subjective: Barbara is feeling better today now that her migraine is gone. She has benefitted from groups, specifically those focusing on goals. She realizes she has isolated herself and that she has been focusing on others throughout her life. She has no one left to focus on, in her opinion. Focusing on herself was suggested. The decrease in Xanax has not been popular. She feels shaky and has some panic symptoms without the 2 mg of Xanax and with only the 1 mg that is prescribed in the morning. PRN medication has been introduced if she cannot tolerate the panic symptoms. Objective - General Observations Appearance: Neat Appears Stated Age: No - older Stature: WNL Posture: WNL Eye Contact: Average Behavior/Activity: WNL, Slowed - Interaction Observations Attitude Towards Examiner: Cooperative Stated Mood: Dysphoric Affect: Full Speech Pattern/Tone: Slurred Thought Process: Coherent Perception: WNL Thought Content: Preoccupation/Ruminations Thought Process: Lethality: Passive Wish Hallucination Type: None Delusion Type: None - Cognitive Function Orientation: A&O x 4 Level of Consciousness: Awake, Alert, Appropriate Cognition: WNL Estimated Intelligence: Normal Insight: WNL Judgment Within Normal Limits: Yes - Medication Compliance Cooperative with Inpatient Medication Regimen: Yes - Group Participation Participates in Group Activities: Yes Assessment - Assessment Merits Inpatient Hospitalization: For Immediate Safety Inpatient DSM-V Dx: F43.12 Clinical Impression: Barbara is a 63-year-old woman who comes to the hospital following the realization that she could not continue living the way she was, that she was physically and emotionally debilitated to an unprecedented degree; this caused her to want to cut her wrist with a knife she was holding while doing dishes. Plan - Plan Treatment Plan: Name: BARBARA ARREDONDO Birthdate: 1955 [id number] Xanax has been reduced to 3-5 mg per day rather than 6 mg per day. Group therapy and individual therapy as well as interacting in the milieu will be useful to Barbara. Continued social contact will be helpful. Continued Medication Management: Different Medication Medications: Current Medications Acetaminophen (Tylenol Tab*) 650 mg PO Q4H PRN PRN Reason: PAIN or TEMP > 101 F Last Admin: 02/03/19 13:10 Dose: 650 mg Al Hydrox/Mg Hydrox/Simethicone (Maalox Plus*) 30 ml PO Q4H PRN PRN Reason: INDIGESTION Albuterol (Ventolin Hfa Inhaler*) 2 puff INH Q4H PRN PRN Reason: ASTHMA Last Admin: 02/02/19 15:41 Dose: 2 puff Alprazolam (Xanax Tab*) 1 mg PO 0900,1600,2100 [facility] Last Admin: 02/03/19 15:26 Dose: 1 mg Alprazolam (Xanax Tab*) 1 mg PO 0900,2100 PRN PRN Reason: ANXIETY Ammonium Lactate (Lac-Hydrin 12 %) 1 applic TOPICAL BID PRN PRN Reason: ITCHY SKIN Aspirin (Aspirin 81 Mg Chew Tab*) 81 mg PO DAILY [facility] Last Admin: 02/03/19 08:08 Dose: 81 mg Budesonide/Formoterol Fumarate (Symbicort 160/4.5 (Nf)) 1 puff INH DAILY [facility] Last Admin: 02/03/19 08:07 Dose: 1 puff Cyclobenzaprine HCl (Flexeril Tab*) 10 mg PO Q8H PRN PRN Reason: JOINT PAIN Last Admin: 02/02/19 09:15 Dose: 10 mg Dihydroergotamine Mesylate (D.H.E. 45*) 1 mg IM DAILY PRN PRN Reason: MIGRAINE HEADACHE Last Admin: 02/03/19 15:19 Dose: 1 mg Escitalopram Oxalate (Lexapro *) 20 mg PO DAILY [facility] Last Admin: 02/03/19 08:08 Dose: 20 mg Fenofibrate (Tricor(Nf)) 145 mg PO DAILY [facility] Magnesium Oxide (Magox 400 Tab*) 400 mg PO DAILY [facility] Last Admin: 02/03/19 08:07 Dose: 400 mg Montelukast Sodium (Singulair Tab*) 10 mg PO BEDTIME [facility] Last Admin: 02/02/19 20:31 Dose: 10 mg Multivitamins (Theragran Tab*) 1 tab PO DAILY [facility] Last Admin: 02/03/19 08:08 Dose: 1 tab Krill Oil Capsules 1 dose PO DAILY [facility] Last Admin: 02/03/19 08:12 Dose: Not Given Aloe Vera Tablet 1 dose PO DAILY [facility] Last Admin: 02/03/19 08:12 Dose: Not Given Pantoprazole Sodium (Protonix Tab*) 40 mg PO DAILY [facility] Last Admin: 02/03/19 08:08 Dose: 40 mg Rivaroxaban (Xarelto(*)) 15 mg PO BID [facility] Last Admin: 02/03/19 08:08 Dose: 15 mg Sucralfate (Carafate*) 1 gm PO BID [facility] Last Admin: 02/03/19 08:07 Dose: 1 gm Triamcinolone Acetonide (Triamcinolone 0.025% Oint *) 1 applic TOPICAL DAILY PRN PRN Reason: ITCHY SKIN - Discharge Plan Discharge Plan: Outpatient Follow Up
[2019-02-03] MEDS: Montelukast Sodium TAB* 10 MG PO SCH (20:48)
[2019-02-03] MEDS: Cyclobenzaprine TAB* 10 MG PO PRN (22:18)
[2019-02-04] MEDS: Escitalopram * 20 MG TABLET PO SCH (09:01)
[2019-02-04] MEDS: Magnesium Oxide TAB* 400 MG PO SCH (09:02)
[2019-02-04] MEDS: Vitamin THERAPEUTIC TAB PO SCH (09:02)
[2019-02-04] MEDS: Rivaroxaban TAB(*) 15 MG PO SCH ×2 (09:03→21:23)
[2019-02-04] MEDS: CMC:Fenofibrate(NF) 145 MG TAB PO SCH (09:03)
[2019-02-04] MEDS: Sucralfate TAB* 1 GM PO SCH ×2 (09:03→21:24)
[2019-02-04] MEDS: Aspirin 81 mg CHEW TAB* 81 MG TAB.CHEW PO SCH (09:03)
[2019-02-04] MEDS: Pantoprazole TAB * 40 MG TAB PO SCH (09:03)
[2019-02-04] MEDS: PTO: Budesonide/Formote 160/4.5(NF) MDI INH SCH (09:04)
[2019-02-04] MEDS: ALPRAZolam TAB* 0.5 MG PO SCH ×3 (09:06→21:23)
[2019-02-04] MEDS: Acetaminophen TAB* 325 MG PO PRN ×2 (09:06→19:02)
[2019-02-04] MEDS: ALOE VERA PO SCH (09:07)
[2019-02-04] MEDS: KRILL OIL PO SCH (09:07)
[2019-02-04] MEDS: Dihydroergotamine (D.H.E.)* 1 MG/ML 1 ML AMP IM PRN ×2 (11:15→16:08)
[2019-02-04] MEDS: Montelukast Sodium TAB* 10 MG PO SCH (21:23)
[2019-02-05] MEDS: PTO: Budesonide/Formote 160/4.5(NF) MDI INH SCH (08:03)
[2019-02-05] MEDS: CMC:Fenofibrate(NF) 145 MG TAB PO SCH (08:04)
[2019-02-05] MEDS: ALPRAZolam TAB* 0.5 MG PO SCH ×3 (08:04→21:24)
[2019-02-05] MEDS: Vitamin THERAPEUTIC TAB PO SCH (08:04)
[2019-02-05] MEDS: Sucralfate TAB* 1 GM PO SCH ×2 (08:04→21:21)
[2019-02-05] MEDS: Escitalopram * 20 MG TABLET PO SCH (08:04)
[2019-02-05] MEDS: Pantoprazole TAB * 40 MG TAB PO SCH (08:04)
[2019-02-05] MEDS: Magnesium Oxide TAB* 400 MG PO SCH (08:04)
[2019-02-05] MEDS: KRILL OIL PO SCH (08:05)
[2019-02-05] MEDS: ALOE VERA PO SCH (08:05)
[2019-02-05] MEDS: Aspirin 81 mg CHEW TAB* 81 MG TAB.CHEW PO SCH (08:05)
[2019-02-05] MEDS: Acetaminophen TAB* 325 MG PO PRN ×2 (08:07→13:10)
[2019-02-05] MEDS: Rivaroxaban TAB(*) 15 MG PO SCH ×2 (08:41→21:21)
[2019-02-05 08:44] VITALS: BP 126/72
[2019-02-05] MEDS: Cyclobenzaprine TAB* 10 MG PO PRN ×2 (08:49→16:03)
[2019-02-05] MEDS: Dihydroergotamine (D.H.E.)* 1 MG/ML 1 ML AMP IM PRN (09:09)
--- NOTE | 2019-02-05 15:04 | PN ---
Subjective - Subjective Date of Service: 02/05/19 Service Type: [id number] Hosp care 15 min low complexity Subjective: Barbara was very pleasant to sit down and speak with today, despite having a migraine increase in severity through the day from 12/28 to 06/29 per current report. She reports missing her anitanxiety meds. She reports her mood is nevertheless "OK". She reports sleeping and eating ok. She denies any hallucinations or paranoia. She denies any dissociative spells. 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 She offered that at times her alters will sit down for a conference to sort out their differences, like in a [employer] room. She reports a playful relationship to her alters, who sill sometimes play tricks on her, like hiding her keys. Objective - General Observations Appearance: Neat Appears Stated Age: No - older Posture: Slumped Behavior/Activity: Slowed Behavior Comment: due to physical impairments it would seem - Interaction Observations Attitude Towards Examiner: Cooperative Stated Mood: Euthymic Affect: Full Speech Pattern/Tone: Clear, Appropriate, Normal Volume Thought Process: Coherent Perception: WNL Thought Content: WNL Hallucination Type: None Delusion Type: None - Cognitive Function Orientation: A&O x 4 Level of Consciousness: Awake, Alert, Appropriate Cognition: WNL Estimated Intelligence: Normal Insight: WNL Judgment Within Normal Limits: Yes - Medication Compliance Cooperative with Inpatient Medication Regimen: Yes - Group Participation Participates in Group Activities: Yes Assessment - Assessment Inpatient DSM-V Dx: F43.12 Clinical Impression: Barbara is a 63-year-old woman who comes to the hospital following the realization that she could not continue living the way she was, that she was physically and emotionally debilitated to an unprecedented degree; this caused her to want to cut her wrist with a knife she was holding while doing dishes. Plan - Plan Treatment Plan: Name: BARBARA ARREDONDO Birthdate: 1955 [id number] Xanax has been reduced to 3-5 mg per day rather than 6 mg per day. Group therapy and individual therapy as well as interacting in the milieu will be useful to Barbara. Continued social contact will be helpful. Medications: Current Medications Acetaminophen (Tylenol Tab*) 650 mg PO Q4H PRN PRN Reason: PAIN or TEMP > 101 F Last Admin: 02/05/19 13:10 Dose: 650 mg Al Hydrox/Mg Hydrox/Simethicone (Maalox Plus*) 30 ml PO Q4H PRN PRN Reason: INDIGESTION Albuterol (Ventolin Hfa Inhaler*) 2 puff INH Q4H PRN PRN Reason: ASTHMA Last Admin: 02/02/19 15:41 Dose: 2 puff Alprazolam (Xanax Tab*) 1 mg PO 0900,1600,2100 [facility] Last Admin: 02/05/19 08:04 Dose: 1 mg Alprazolam (Xanax Tab*) 1 mg PO 0900,2100 PRN PRN Reason: ANXIETY Last Admin: 02/03/19 20:49 Dose: 1 mg Ammonium Lactate (Lac-Hydrin 12 %) 1 applic TOPICAL BID PRN PRN Reason: ITCHY SKIN Aspirin (Aspirin 81 Mg Chew Tab*) 81 mg PO DAILY [facility] Last Admin: 02/05/19 08:05 Dose: 81 mg Budesonide/Formoterol Fumarate (Symbicort 160/4.5 (Nf)) 1 puff INH DAILY [facility] Last Admin: 02/05/19 08:03 Dose: 1 puff Cyclobenzaprine HCl (Flexeril Tab*) 10 mg PO Q8H PRN PRN Reason: JOINT PAIN Last Admin: 02/05/19 08:49 Dose: 10 mg Dihydroergotamine Mesylate (D.H.E. 45*) 1 mg IM DAILY PRN PRN Reason: MIGRAINE HEADACHE Last Admin: 02/05/19 09:09 Dose: 1 mg Escitalopram Oxalate (Lexapro *) 20 mg PO DAILY [facility] Last Admin: 02/05/19 08:04 Dose: 20 mg Fenofibrate (Tricor(Nf)) 145 mg PO DAILY [facility] Last Admin: 02/05/19 08:04 Dose: 145 mg Magnesium Oxide (Magox 400 Tab*) 400 mg PO DAILY [facility] Last Admin: 02/05/19 08:04 Dose: 400 mg Montelukast Sodium (Singulair Tab*) 10 mg PO BEDTIME [facility] Last Admin: 02/04/19 21:23 Dose: 10 mg Multivitamins (Theragran Tab*) 1 tab PO DAILY [facility] Last Admin: 02/05/19 08:04 Dose: 1 tab Krill Oil Capsules 1 dose PO DAILY [facility] Last Admin: 02/05/19 08:05 Dose: Not Given Aloe Vera Tablet 1 dose PO DAILY [facility] Last Admin: 02/05/19 08:05 Dose: Not Given Pantoprazole Sodium (Protonix Tab*) 40 mg PO DAILY [facility] Last Admin: 02/05/19 08:04 Dose: 40 mg Rivaroxaban (Xarelto(*)) 15 mg PO BID [facility] Last Admin: 02/05/19 08:41 Dose: 15 mg Sucralfate (Carafate*) 1 gm PO BID [facility] Last Admin: 02/05/19 08:04 Dose: 1 gm Triamcinolone Acetonide (Triamcinolone 0.025% Oint *) 1 applic TOPICAL DAILY PRN PRN Reason: ITCHY SKIN - Discharge Plan Discharge Plan: Outpatient Follow Up
[2019-02-05] MEDS: PTO: Albuterol HFA INHALER* 8 gm MDI INH PRN (15:59)
[2019-02-05] MEDS: Montelukast Sodium TAB* 10 MG PO SCH (21:21)
[2019-02-06] MEDS: Magnesium Oxide TAB* 400 MG PO SCH (08:56)
[2019-02-06] MEDS: CMC:Fenofibrate(NF) 145 MG TAB PO SCH (08:56)
[2019-02-06] MEDS: Acetaminophen TAB* 325 MG PO PRN (08:56)
[2019-02-06] MEDS: Sucralfate TAB* 1 GM PO SCH (08:56)
[2019-02-06] MEDS: Vitamin THERAPEUTIC TAB PO SCH (08:56)
[2019-02-06] MEDS: Aspirin 81 mg CHEW TAB* 81 MG TAB.CHEW PO SCH (08:56)
[2019-02-06] MEDS: Pantoprazole TAB * 40 MG TAB PO SCH (08:56)
[2019-02-06] MEDS: PTO: Budesonide/Formote 160/4.5(NF) MDI INH SCH (08:57)
[2019-02-06] MEDS: Rivaroxaban TAB(*) 15 MG PO SCH (08:57)
[2019-02-06] MEDS: Escitalopram * 20 MG TABLET PO SCH (08:57)
[2019-02-06] MEDS: ALPRAZolam TAB* 0.5 MG PO SCH (08:58)
[2019-02-06] MEDS: ALOE VERA PO SCH (09:00)
[2019-02-06] MEDS: KRILL OIL PO SCH (09:00)
[2019-02-06] MEDS: Cyclobenzaprine TAB* 10 MG PO PRN (09:02)
== END 2019-02-06 12:20 | disposition home or self-care (01) | DRG 882 ==
LOC: ED 15:37 → BSU 21:59 → ED 22:45
PROVIDERS: ADMIT Psychiatry & Neurology Psychiatry; ATTEND Psychiatry & Neurology Psychiatry
DX: F43.12 Post-traumatic stress disorder, chronic (principal); R45.851 Suicidal ideations; F44.81 Dissociative identity disorder; J44.9 Chronic obstructive pulmonary disease, unspecified; G43.909 Migraine, unspecified, not intractable, without status migrainosus; Z79.899 Other long term (current) drug therapy; Z86.718 Personal history of other venous thrombosis and embolism; Z79.01 Long term (current) use of anticoagulants; Z85.3 Personal history of malignant neoplasm of breast; Z81.8 Family history of other mental and behavioral disorders
CPT/HCPCS: 36415; 80053; 80307; 80320; 80329; 81003; 84443; 85025; 90853; 99222; 99231; 99232; 99238; 99284; A9270-GY; G0480; J1110

== ENCOUNTER 2019-03-03 20:31 | Emergency (ER) | payer MEDICARE, MEDICAID ==
--- NOTE | 2019-03-03 20:42 | ED ---
Neurological HPI - HPI Summary HPI Summary: This patient is a 63 year old female presenting to [facility] With a chief complaint of difficulty speaking since 4 hours ago. The patient reports increased aphasia and slurred speech. The patient reports a migraine that started around 2 hours ago. The patient ambulates with a cane. She has a Hx of speech problems but states they are worse than normal. 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 Albuterol HFA INHALER* [Ventolin HFA Inhaler*] 2 puff INH Q4H PRN 09/23/18 [ History Confirmed 02/01/19] Aloe Vera 1 tab PO DAILY 09/23/18 [History Confirmed 02/01/19] Ammonium Lactate 12% [Lac-Hydrin 12 %] 1 applic TOPICAL BID PRN 09/23/18 [ History Confirmed 02/01/19] Cyclobenzaprine TAB* [Flexeril 10 MG TAB*] 10 mg PO Q8H PRN 09/23/18 [History Confirmed 02/01/19] Dihydroergotamine (D.H.E.)* [D.h.e. 45*] 1 mg .SEE ORDER DAILY PRN 09/23/18 [ History Confirmed 02/01/19] Escitalopram Oxalate [Lexapro 20 mg] 30 mg PO DAILY 09/23/18 [History Confirmed 02/01/19] Fenofibrate Nanocrystallized [Tricor] 145 mg PO DAILY 09/23/18 [History Confirmed 02/01/19] Fremanezumab-Vfrm [Ajovy] 225 mg SQ SEE INSTRUCTIONS 09/23/18 [History Confirmed 02/01/19] Krill/Om-3/Dha/Epa/Phospho/Ast [Krill Oil 500 mg Softgel] 1 cap PO DAILY [History Confirmed 02/01/19] Magnesium Oxide TAB* [MagOx 400 TAB*] 400 mg PO DAILY 09/23/18 [History Confirmed 02/01/19] Montelukast Sodium TAB* [Singulair 10 MG TAB*] 10 mg PO BEDTIME 09/23/18 [ History Confirmed 02/01/19] Omeprazole CAP (NF) [Prilosec CAP* 20 MG] 20 mg PO DAILY 09/23/18 [History Confirmed 02/01/19] Onabotulinumtoxina [Botox Cosmetic] 1 dose INJ SEE INSTRUCTIONS 09/23/18 [ History Confirmed 02/01/19] Ondansetron ODT TAB* [Zofran 4 MG Odt TAB*] 4 mg PO TID PRN 09/23/18 [History Confirmed 02/01/19] Sucralfate TAB* [Carafate*] 1 gm PO BID 09/23/18 [History Confirmed 02/01/19] Triamcinolone 0.1% CREAM (NF) [Kenalog 0.1% Cream (NF)] 1 applic TOPICAL DAILY PRN 09/23/18 [History Confirmed 02/01/19] Budesonide/Formote 160/4.5(NF) [Symbicort 160/4.5 (NF)] 1 puff INH DAILY [History Confirmed 02/01/19] Aspirin 81 mg CHEW TAB* 81 mg PO DAILY 02/01/19 [History Confirmed 02/01/19] Lidocaine 1 mg INTRANASAL DAILY PRN 02/01/19 [History Confirmed 02/01/19] Polyethylene Glycol 3350* [Miralax*] 17 gm PO DAILY PRN 02/01/19 [History Confirmed 02/01/19] Rivaroxaban TAB(*) [Xarelto 15 mg(*)] 15 mg PO BID 02/01/19 [History Confirmed 02/01/19] ALPRAZolam [Alprazolam] 1 mg PO TID #90 tablet MDD 3 mg 02/06/19 [Rx] Albuterol HFA INHALER* [Ventolin HFA Inhaler*] 2 puff INH Q4H PRN mdi 02/06/19 [Rx] Ammonium Lactate 12% [Lac-Hydrin 12 %] 1 applic TOPICAL BID PRN tube 02/06/19 [ Rx] Aspirin 81 mg CHEW TAB* 81 mg PO DAILY tab.chew 02/06/19 [Rx] Budesonide/Formote 160/4.5(NF) [Symbicort 160/4.5 (NF)] 1 puff INH DAILY mdi [Rx] Cyclobenzaprine TAB* [Flexeril 10 MG TAB*] 10 mg PO Q8H PRN tab 02/06/19 [Rx] Dihydroergotamine (D.H.E.)* [D.h.e. 45*] 1 mg IM DAILY PRN amp 02/06/19 [Rx] Escitalopram * [Lexapro *] 20 mg PO DAILY tablet 02/06/19 [Rx] Fenofibrate(NF) [Tricor(NF)] 145 mg PO DAILY tab 02/06/19 [Rx] Magnesium Oxide TAB* [MagOx 400 TAB*] 400 mg PO DAILY tab 02/06/19 [Rx] Montelukast Sodium TAB* [Singulair 10 MG TAB*] 10 mg PO BEDTIME tab 02/06/19 [ Rx] Rivaroxaban TAB(*) [Xarelto 15 mg(*)] 15 mg PO BID tab 02/06/19 [Rx] Sucralfate TAB* [Carafate*] 1 gm PO BID tab 02/06/19 [Rx] - History of Current Complaint Stated Complaint: STROKE PER EMS Hx Obtained From: Patient Onset/Duration: Started hours ago Timing: Constant Character: Impaired Speech - Additional Pertinent History Primary Care Physician: [id number] - Allergy/Home Medications Allergies/Adverse Reactions: Allergies Allergy/AdvReac Type Severity Reaction Status Date / Time deutetrabenazine Allergy See Comment Verified 02/01/19 15:45 [From Austedo] erenumab-aooe Allergy Unknown Verified 02/01/19 15:45 [From Aimovig Autoinjector] Reaction Details fremanezumab-vfrm Allergy Constipatio Verified 02/01/19 21:27 [From Ajovy] n hydromorphone [From Dilaudid] Allergy Vomiting Verified 02/01/19 15:43 memantine [From Namenda] Allergy Coughing Verified 02/01/19 15:43 oxycodone Allergy Vomiting Verified 02/01/19 15:43 prochlorperazine Allergy See Comment Verified 02/01/19 15:45 [From Compazine] Sulfa (Sulfonamide Allergy Rash And Verified 02/01/19 15:43 Antibiotics) Itching sumatriptan [From Imitrex] Allergy See Comment Verified 02/01/19 15:43 PMH/Surg Hx/FS Hx/Imm Hx Endocrine/Hematology History: Reports: Hx Anemia - when younger Denies: Hx Diabetes Cardiovascular History: Reports: Hx Hypercholesterolemia, Other Cardiovascular Problems/Disorders - 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 Denies: Hx Coronary Artery Disease, Hx Hypertension Respiratory History: Reports: Hx Asthma, Hx Chronic Obstructive Pulmonary Disease (COPD) GI History: Reports: Hx Diverticulosis - diverticulitis, Hx Gastroesophageal Reflux Disease, Other GI Disorders - Chroninc constipation History: Reports: Hx Kidney Infection Musculoskeletal History: Reports: Hx Back Problems, Hx Fibromyalgia, Other Musculoskeletal History - Complex pain syndrome Sensory History: Reports: Hx Contacts or Glasses - glasses Denies: Hx Hearing Aid Opthamlomology History: Reports: Hx Contacts or Glasses - glasses Neurological History: Reports: Hx Migraine, Other Neuro Impairments/Disorders - 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 Psychiatric History: Reports: Hx Anxiety - with panic attacks, Hx Depression, Hx Panic Disorder, Hx Post Traumatic Stress Disorder, Hx Inpatient Treatment, Hx Community Mental Health Tx, Other Psychiatric Issues/Disorders - multiple personality disorder Denies: Hx Eating Disorder, Hx of Violent Episodes Against Others - Cancer History Cancer Type, Location and Year: Breast cancer right breast Hx Chemotherapy: Yes - [id number] Hx Radiation Therapy: Yes - [id number] - Surgical History Surgery Procedure, Year, and Place: Jaw surgery (1969, 1972, 1990), Hysterectomy (1987), Spinal fusion C3-7, L4-S1, Sinus (2005), Baldder tvt (2001 , 2009, 2016), ORIF right ankle (2009), Infectious Disease History: Reports: Hx of Known/Suspected MRSA - pt stated about 1 year ago, Hx Shingles - Family History Known Family History: Positive: Non-Contributory - Social History Alcohol Use: None Alcohol Amount: 1 glass wine Hx Substance Use: No Substance Use Type: Reports: None Hx Tobacco Use: No Smoking Status (MU): Never Smoked Tobacco Review of Systems Negative: Fever Neurological: Other - Aphasia Positive: Headache, Slurred Speech All Other Systems Reviewed And Are Negative: Yes Physical Exam - Summary Physical Exam Summary: VITAL SIGNS: Reviewed. GENERAL: Patient is a well-developed and nourished FEMALE who is lying comfortable in the stretcher. Patient is not in any acute respiratory distress. HEAD AND FACE: No signs of trauma. No ecchymosis, hematomas or skull depressions. No sinus tenderness. EYES: PERRLA, EOMI x 2, No injected conjunctiva, no nystagmus. EARS: Hearing grossly intact. Ear canals and tympanic membranes are within normal limits. MOUTH: Oropharynx within normal limits. NECK: Supple, trachea is midline, no adenopathy, no JVD, no carotid bruit, no c- spine tenderness, neck with full ROM CHEST: Symmetric, no tenderness at palpation LUNGS: Clear to auscultation bilaterally. No wheezing or crackles. CVS: Regular rate and rhythm, S1 and S2 present, no murmurs or gallops appreciated. ABDOMEN: Soft, non-tender. No signs of distention. No rebound no guarding, and no masses palpated. Bowel sounds are normal. EXTREMITIES: FROM in all major joints, no edema, no cyanosis or clubbing. NEURO: Alert and oriented x 3. No acute neurological deficits. Appears to have dysarthria, which she states is worse than normal given Hx of Tardiv Dyskinesia. Patient does not seem to be aphasic. Patient could ambulate with her cane at baseline. SKIN: Dry and warm Triage Information Reviewed: Yes Vital Signs On Initial Exam: Temp Pulse Resp BP Pulse Ox 98.8 F 81 18 143/85 98 03/03/19 20:47 03/03/19 20:47 03/03/19 20:47 03/03/19 20:47 03/03/19 20:47 Vital Signs Reviewed: Yes Diagnostics - Laboratory Result Diagrams: 03/03/19 21:38 03/03/19 21:38 Lab Statement: Any lab studies that have been ordered have been reviewed, and results considered in the medical decision making process. - Radiology CXR Radiology Interpretation Completed By: ED Physician Summary of Radiographic Findings: No acute process. Pending official radiologist report. - CT Brain CT Interpretation Completed By: Radiologist Summary of CT Findings: Patient motion without definite acute intracranial abnormality. ED Provider has reviewed this report. CTA Head CT Interpretation Completed By: Radiologist Summary of CT Findings: Patient motion withotu definite significant stenosis. ED Provider has reviewed this report. - EKG 2125 Cardiac Rate: NL EKG Rhythm: Sinus Rhythm - 77 BPM Summary of EKG Findings: Normal axis, normal interval, no ischemic changes. Re-Evaluation - Re-Evaluation First Eval Re-Evaluation Time: 23:29 Change: Improved Comment: Patient feels better. She states symptoms have resolved. Course/Dx - Course Course Of Treatment: This patient is a 63 year old female presenting to [facility] With a chief complaint of difficulty speaking since 4 hours ago. Physical exam was remarkable for dysarthria, which she states is worse than normal given her Hx of Tardiv Dyskinesia. Labs, imaging, and EKG were unremarkable for acure neurological and cardiovascular problems. Patient states she is feeling better and that her headache has resolved. Patient symptoms most likely secondary to her headache. A plan for discharge was discussed with the patient and she was agreeable with this plan. - Diagnoses Provider Diagnoses: Migraines Discharge - Sign-Out/Discharge Documenting (check all that apply): Patient Departure - Discharge Patient Received Moderate/Deep Sedation with Procedure: No - Discharge Plan Condition: Stable Disposition: HOME Patient Education Materials: Migraine Headache (ED) Referrals: [facility] [Outside] Additional Instructions: Return to ED with any new or worsening symptoms. - Attestation Statements Document Initiated by Scribe: Yes Documenting Scribe: Kvng Khan Provider For Whom Yaakovibe is Documenting (Include Credential): Chata Shoemaker MD Scribe Attestation: Kvng Combs, scribed for Chata Shoemaker MD on 03/03/19 at 2185. Status of Scribe Document: Ready
[2019-03-03] MEDS ORDERED: NS 0.9% 1000 ML** 1,000 ML IV ONE (20:55)
[2019-03-03] MEDS ORDERED: Iodixanol* (CONTRAST) 320 MG/ML 100 ML SDV IV ONE (21:25)
[2019-03-03] MEDS ORDERED: Morphine 4 MG/ML VIAL (1 ml) 4 MG/ML VIAL IV ONE (21:34)
[2019-03-03] MEDS ORDERED: diPHENhydraMINE IV* 50 MG/ML 1 ml VIAL (BENADRYL) IV ONE (21:35)
[2019-03-03] MEDS ORDERED: Ondansetron INJ* 2 MG/ML VIAL IV ONE (21:35)
[2019-03-03 21:48] LABS: ABS Eosinophils 0.1 10^3/ul (0-0.6); ABS Lymphocytes 0.8 10^3/ul (1.0-4.8); ABS Monocytes 0.5 10^3/ul (0-0.8); ABS Neutrophils 4.4 10^3/ul (1.5-7.7); Eosinophil % 2.2 %; Hematocrit 33 % (35-47); Hemoglobin 10.9 g/dL (12.0-16.0); Lymphocyte % 13.2 %; Mean Corpuscular HGB Conc 33 g/dL (31-36); Mean Corpuscular Hemoglobin 29 pg (27-31); Mean Corpuscular Volume 90 fL (80-97); Platelet Count 402 10^3/uL (150-450); Red Blood Count 3.71 10^6 /uL (3.70-4.87); Red Cell Distribution Width 14 % (10-15); White Blood Count 5.8 10^3/uL (3.5-10.8)
[2019-03-03 21:56] LABS: Activated Partial Thrombo Time 78.3 seconds (26.0-38.0); INR 1.86 (0.82-1.09)
[2019-03-03 22:05] LABS: Albumin 3.9 g/dL (3.2-5.2); Albumin/Globulin Ratio 1.4 (1-3); BUN/Creatinine Ratio 12.7 (8-20); Calcium 9.5 mg/dL (8.6-10.3); EGFR African American 88.4 (>60); Globulin 2.7 g/dL (2-4); HDL Cholesterol 34.5 mg/dL; Potassium 4.7 mmol/L (3.5-5.0); Total Bilirubin 0.2 mg/dL (0.2-1.0); Total Protein 6.6 g/dL (6.4-8.9)
[2019-03-03 23:32] LABS: Urine Appearance Clear; Urine Bacteria 1+ (Absent); Urine Bilirubin Negative (Negative); Urine Blood Negative (Negative); Urine Color Straw; Urine Glucose Negative (Negative); Urine Ketones Negative (Negative); Urine Nitrite Negative (Negative); Urine Protein Negative (Negative); Urine Red Blood Cell Trace(0-2/hpf) (Absent); Urine Specific Gravity 1.019 (1.010-1.030); Urine Squamous Epithelial Cell Present (Absent); Urine Urobilinogen Negative (Negative); Urine White Blood Cell 1+(6-10/hpf) (Absent)
[2019-03-04 00:01] VITALS: BP 143/78
== END 2019-03-04 | disposition home or self-care (01) ==
LOC: ED 20:31
DX: G43.909 Migraine, unspecified, not intractable, without status migrainosus (principal); R47.81 Slurred speech; Z88.2 Allergy status to sulfonamides; Z79.899 Other long term (current) drug therapy; Z79.82 Long term (current) use of aspirin; Z85.3 Personal history of malignant neoplasm of breast
CPT/HCPCS: 36415; 70450; 70496; 70498; 71045; 80053; 80061; 81003; 81015; 83605; 84484; 85025; 85610; 85730; 87086; 93005; 96361; 96374; 96375; 99285; J1200; J2270; Q9967

== ENCOUNTER 2019-03-26 18:39 | Emergency (ER) | payer MEDICARE, MEDICAID ==
--- NOTE | 2019-03-26 19:16 | ED ---
Throat Pain/Nasal Congestion - HPI Summary HPI Summary: This patient is a 63 year old female presenting to [facility] with a chief complaint of thrush in her mouth since yesterday. The patient was given lozenges at urgent care and has used those along with water but states her pain in her mouth has only gotten worse. She states she feels like her mouth is "on fire". She rates her pain 8/10 in severity. - History of Current Complaint Chief Complaint: EDRashSkinAbscess Time Seen by Provider: 03/26/19 19:10 Hx Obtained From: Patient Onset/Duration: Lasting Days - Allergies/Home Medications Allergies/Adverse Reactions: Allergies Allergy/AdvReac Type Severity Reaction Status Date / Time deutetrabenazine Allergy See Comment Verified 03/26/19 18:50 [From Austedo] erenumab-aooe Allergy Unknown Verified 03/26/19 18:50 [From Aimovig Autoinjector] Reaction Details fremanezumab-vfrm Allergy Constipatio Verified 03/26/19 18:50 [From Ajovy] n hydromorphone [From Dilaudid] Allergy Vomiting Verified 03/26/19 18:50 memantine [From Namenda] Allergy Coughing Verified 03/26/19 18:50 oxycodone Allergy Vomiting Verified 03/26/19 18:50 prochlorperazine Allergy See Comment Verified 03/26/19 18:50 [From Compazine] Sulfa (Sulfonamide Allergy Rash And Verified 03/26/19 18:50 Antibiotics) Itching sumatriptan [From Imitrex] Allergy See Comment Verified 03/26/19 18:50 PMH/Surg Hx/FS Hx/Imm Hx Endocrine/Hematology History: Reports: Hx Anemia - when younger Denies: Hx Diabetes Cardiovascular History: Reports: Hx Hypercholesterolemia, Other Cardiovascular Problems/Disorders - 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 Denies: Hx Coronary Artery Disease, Hx Hypertension Respiratory History: Reports: Hx Asthma, Hx Chronic Obstructive Pulmonary Disease (COPD) GI History: Reports: Hx Diverticulosis - diverticulitis, Hx Gastroesophageal Reflux Disease, Other GI Disorders - Chroninc constipation History: Reports: Hx Kidney Infection Musculoskeletal History: Reports: Hx Back Problems, Hx Fibromyalgia, Other Musculoskeletal History - Complex pain syndrome Sensory History: Reports: Hx Contacts or Glasses - glasses Denies: Hx Hearing Aid Opthamlomology History: Reports: Hx Contacts or Glasses - glasses Neurological History: Reports: Hx Migraine, Other Neuro Impairments/Disorders - 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 Psychiatric History: Reports: Hx Anxiety - with panic attacks, Hx Depression, Hx Panic Disorder, Hx Post Traumatic Stress Disorder, Hx Inpatient Treatment, Hx Community Mental Health Tx, Other Psychiatric Issues/Disorders - multiple personality disorder Denies: Hx Eating Disorder, Hx of Violent Episodes Against Others - Cancer History Cancer Type, Location and Year: Breast cancer right breast Hx Chemotherapy: Yes - 7172-3810 Hx Radiation Therapy: Yes - [id number] - Surgical History Surgery Procedure, Year, and Place: Jaw surgery (1969, 1972, 1990), Hysterectomy (1987), Spinal fusion C3-7, L4-S1, Sinus (2005), Baldder tvt (2001 , 2009, 2016), ORIF right ankle (2009), Infectious Disease History: No Infectious Disease History: Reports: Hx of Known/Suspected MRSA - pt stated about 1 year ago, Hx Shingles Denies: Traveled Outside the [place] in Last 30 Days - Family History Known Family History: Positive: Non-Contributory - Social History Alcohol Use: None Alcohol Amount: 1 glass wine Hx Substance Use: No Substance Use Type: Reports: None Hx Tobacco Use: No Smoking Status (MU): Never Smoked Tobacco Review of Systems Negative: Fever Positive: Other - Thrush in mouth All Other Systems Reviewed And Are Negative: Yes Physical Exam - Summary Physical Exam Summary: VITAL SIGNS: Reviewed. GENERAL: Patient is a well-developed and nourished FEMALE who is lying comfortable in the stretcher. Patient is not in any acute respiratory distress. HEAD AND FACE: No signs of trauma. No ecchymosis, hematomas or skull depressions. No sinus tenderness. EYES: PERRLA, EOMI x 2, No injected conjunctiva, no nystagmus. EARS: Hearing grossly intact. Ear canals and tympanic membranes are within normal limits. MOUTH: Oropharynx within normal limits. Thrush on mouth and tongue. NECK: Supple, trachea is midline, no adenopathy, no JVD, no carotid bruit, no c- spine tenderness, neck with full ROM. CHEST: Symmetric, no tenderness at palpation. LUNGS: Clear to auscultation bilaterally. No wheezing or crackles. CVS: Regular rate and rhythm, S1 and S2 present, no murmurs or gallops appreciated. ABDOMEN: Soft, non-tender. No signs of distention. No rebound, no guarding, and no masses palpated. Bowel sounds are normal. EXTREMITIES: FROM in all major joints, no edema, no cyanosis or clubbing. NEURO: Alert and oriented x 3. No acute neurological deficits. Speech is normal and follows commands. SKIN: Dry and warm. Triage Information Reviewed: Yes Vital Signs On Initial Exam: Initial Vitals Temp Pulse Resp BP Pulse Ox 98.8 F 76 18 135/89 97 03/26/19 18:45 03/26/19 18:45 03/26/19 18:45 03/26/19 18:45 03/26/19 18:45 Vital Signs Reviewed: Yes Diagnostics - Vital Signs Vital Signs Temp Pulse Resp BP Pulse Ox 03/26/19 18:45 98.8 F 76 18 135/89 97 - Laboratory Lab Statement: Any lab studies that have been ordered have been reviewed, and results considered in the medical decision making process. EENT Course/Dx - Course Assessment/Plan: This patient is a 63 year old female presenting to [facility] with a chief complaint of thrush in her mouth since yesterday. The patient was given lozenges at urgent care and has used those along with water but states her pain in her mouth has only gotten worse. She states she feels like her mouth is "on fire". She rates her pain 8/10 in severity. The patient was already diagnosed with thrush and she was given Clotrimazole dissolving tablets. She started taking this medications today at noon but she reports she does not feel any better. She wants something liquid. Therefore, I gave viscous lidocaine and Nystatin. She has no other complaints and she will be discharged home with f/u of PCP. I discussed all the findings and test results with the patient. Patient was instructed to return to the emergency room immediately if any of the symptoms return worsens. Plan of care was discussed with the patient and understands and agrees. All questions were answered at patient satisfaction. There were no further complaints or concerns. Lung exam before discharge: CTA B/ L. Good air exchange. No wheezing or crackles heard. CVS: S1 and S2 present. No murmurs appreciated. Patient is alert and oriented x 3. Patient is hemodynamically stable. Patient will be discharged home with follow up PCP in the next 2-3 days - Diagnoses Provider Diagnoses: Oral candidiasis Discharge - Sign-Out/Discharge Documenting (check all that apply): Patient Departure - Discharge Patient Received Moderate/Deep Sedation with Procedure: No - Discharge Plan Condition: Stable Disposition: HOME Prescriptions: Lidocaine 2% VISCOUS* [Xylocaine 2% Viscous*] 15 ml SWISH SPIT Q4H PRN #1 btl PRN Reason: Pain Nystatin SUSPENSION ORAL SYR* 4 - 6 ml PO QID #160 [facility] [place] Education Materials: Oral Candidiasis (ED) Referrals: No Primary Care Phys,NOPCP [Primary Care Provider] - Additional Instructions: Return to ED with any new or worsening symptoms. - Billing Disposition and Condition Condition: STABLE Disposition: Home - Attestation Statements Document Initiated by Damian: Yes Documenting Scribe: Kvng Khan Provider For Whom Damian is Documenting (Include Credential): Isacc Joseph MD Scribe Attestation: Kvng Combs scribed for Isacc Joseph MD on 03/26/19 at 2206. Scribe Documentation Reviewed: Yes Provider Attestation: The documentation as recorded by the Kvng greenwood accurately reflects the service I personally performed and the decisions made by , Isacc Joseph MD Status of Scribe Document: Viewed
[2019-03-26] MEDS ORDERED: Lidocaine 2% VISCOUS* 15 ML UDC SWISH SPIT ONE (19:19)
[2019-03-26] MEDS ORDERED: Nystatin SUSPENSION* 100000 UNITS/ML 5 ML UDC PO ONE (19:19)
[2019-03-26 19:56] VITALS: BP 136/90
== END 2019-03-26 19:54 | disposition home or self-care (01) ==
LOC: ED 18:39
DX: B37.0 Candidal stomatitis (principal); Z88.5 Allergy status to narcotic agent; Z88.2 Allergy status to sulfonamides; Z88.8 Allergy status to other drugs, medicaments and biological substances
CPT/HCPCS: 99281; A9270-GY

== ENCOUNTER 2019-07-09 19:37 | Observation (INO) | payer MEDICARE, MEDICAID ==
--- OUTSIDE RECORDS SUMMARY | 2019-07-09 20:01 | XMS REPORT | Continuity of Care Document ---
:1955 External Reference #:[id number] Author Name Charles Quiñones M.D. 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 Onset: 10/02/2014 Localized, primary osteoarthritis Evans Vuong M.D. Onset: 06/21/2015 Social History Type Date Description Comments Sex Unknown ETOH Use Denies alcohol use Tobacco Use Start: Unknown Patient has never smoked Smoking Status Reviewed: 06/27/19 Patient has never smoked Allergies, Adverse Reactions, Alerts Active Allergies Reaction Severity Comments Date Sulfa Antibiotics 03/21/2013 Dilaudid 03/21/2013 Oxycodone 03/21/2013 Imitrex 03/21/2013 Bentyl 09/19/2013 Namenda Cough 12/19/2013 Medications Active Medications SIG Qnty Indications Ordering Date Provider Lidocaine 4% Nasal [place] 1 spray each 20units G43.019 Charles Leggett 06/27/2019 nostril as needed Vani Quiñones migraine max twice a day Dihydroergotamine inject one 10units Charles Leggett 09/06/2012 Mesylate milliliters every Vani Quiñones 1mg/ml Solution 8 hours as needed for migraine. maximum daily dose = 3 mg max weekly dose is 6 mg Centrum Silver 50+Women once daily Unknown 50+Women Tablets Co Q-10 Plus daily Unknown 100-20mg Capsules Mucinex 2 by mouth twice Unknown 600mg Tablets ER 12HR a day as needed Triaminolone Acetone prn Unknown Cream .1% Ammonium Lactate use twice a day Unknown 12% Cream Omeprazole 1 by mouth every Unknown 20mg Capsules DR day Albuterol Sulfate 1 application Unknown (2.5mg/3ML) every 4 hours as 0.083% Nebulizer needed Lexapro 1 1/2 tab by Unknown 20mg Tablets mouth every day Cyclobenzaprine HCL one by mouth Unknown 10mg three times a day Tablets Krill Oil 1 capsule by Unknown 500mg Capsules mouth daily Aloe Vera 1 tab po qd Unknown Tablet Magnesium 1 by mouth every Unknown 400mg Capsules day Montelukast Sodium 1 by mouth every Unknown 10mg night Tablets Fenofibrate Micronized 1 by mouth every Unknown 145mg day Capsules Symbicort 2 puff twice a Unknown 80-4.5mcg/Act day prn Aerosol Xanax 1 tablet by mouth Unknown 2mg Tablets three daily History Medications Lidocaine Viscous G4Milena Leggett 01/25/2019 - HCL Vani Quiñones 01/25/2019 2% Solution Lidocaine Viscous Take 4mL 100ml Petros Leggett 01/25/2019 - intranasally with a Vani Quiñones 01/25/2019 2% Solution swab daily, as needed for migraines . May take up to 3 times a week. Medications Administered in Office Medication SIG Qnty Indications Ordering Provider Date Synvisc Or Synvisc-One Evans Vuong M.D. 2019 Injection 1 MG Injection Synvisc Or Synvisc-Jaz Vuong M.D. 2019 Injection 1 MG Injection Synvisc Or Synvisc-Jaz Vuong M.D. 05/10/2019 Injection 1 MG Injection Synvisc Or Synvisc-One Evans Vuong M.D. 05/10/2019 Injection 1 MG Injection Synvisc Or Synvisc-Jaz Vuong M.D. 04/26/2019 Injection 1 MG Injection Synvisc Or Synvisc-Jaz Vuong M.D. 04/26/2019 Injection 1 MG Injection Synvisc Or Synvisc-One [...] Evans Vuong M.D. 02/26/2016 Injection Injection Onabotulinumtoxin Charles Monsalve M.D. 01/21/2016 1 Unit Injection Depomedrol 40MG Evans Vuong M.D. 10/23/2015 Injection Injection Onabotulinumtoxin Charles Monsalve M.D. 10/16/2015 1 Unit Injection Injection Onabotulinumtoxin ALea NP 07/04/2015 1 Unit Injection Depomedrol 80MG Evans Vuong M.D. 06/21/2015 Injection Injection Onabotulinumtoxin A, Lea Raines NP 04/03/2015 1 Unit Injection Injection Onabotulinumtoxin Lea Monsalve NP 01/02/2015 1 Unit Injection Injection Onabotulinumtoxin Bello, Charles Quiñones M.D. 10/02/2014 1 Unit Injection Injection Onabotulinumtoxin Charles Monsalve M.D. 07/03/2014 1 Unit Injection Injection Onabotulinumtoxin Bello, Charles Quiñones M.D. 03/27/2014 1 Unit Injection Injection Onabotulinumtoxin Bello, Charles Quiñones M.D. 12/19/2013 1 Unit Injection Injection Onabotulinumtoxin Charles Monsalve M.D. 09/19/2013 1 Unit Injection Injection Onabotulinumtoxin Charles Monsalve M.D. 06/13/2013 1 Unit Injection Injection Onabotulinumtoxin Charles Monsalve M.D. 03/08/2013 1 Unit Injection Synvisc Or Synvisc-One Evans Vuong M.D. 12/13/2012 Injection 1 MG Injection Synvisc Or Synvisc-One Evans Vuong M.D. 12/13/2012 Injection 1 MG Injection Injection Onabotulinumtoxin Charles Monsalve M.D. 12/06/2012 1 Unit Injection Injection Onabotulinumtoxin Charles Monsalve M.D. 09/06/2012 1 Unit Injection Synvisc Or Synvisc-One Kvng Edmondson M.D. 06/30/2012 Injection 1 MG Injection Synvisc Or Synvisc-One Evans Vuong M.D. 06/21/2012 Injection 1 MG Injection Synvisc Or Synvisc-One Evans Vuong M.D. 06/14/2012 Injection 1 MG Injection Synvisc Or Synvisc-One Evans Vuong M.D. 06/14/2012 Injection 1 MG Injection Synvisc Or Synvisc-One Evans Vuong M.D. 06/14/2012 Injection 1 MG Injection Injection Onabotulinumtoxin Charles Monsalve M.D. 05/31/2012 1 Unit Injection Injection Onabotulinumsofixin Charles Monsalve M.D. 05/31/2012 1 Unit Injection Immunizations Description No Information Available Vital Signs Date Vital Result Comment 06/27/2019 2:31pm Height 64 inches 5'4" Weight 149.00 lb Heart Rate 76 /min BP Systolic Sitting 138 mmHg BP Diastolic Sitting 84 mmHg Respiratory Rate 18 /min BMI (Body Mass Index) 25.6 kg/m2 2019 9:00am Height 64 inches 5'4" Weight 144.00 lb BP Systolic 100 mmHg BP Diastolic 64 mmHg Body Temperature 97.6 F Pain Level 7 BMI (Body Mass Index) 24.7 kg/m2 Results Description No Information Available Procedures Date Code Description Status 05/10/2019 Inject/Drain Joint/Bursa Major W/O US Completed 04/26/2019 Inject/Drain Joint/Bursa Major W/O US Completed Medical Devices Description No Information Available Encounters Type Date Location Provider Dx Diagnosis Office Visit 04/26/2019 [facility] Evans Yevgeniy, M17.0 Bilateral primary 1:00p at [facility] osteoarthritis of knee M67.472 Ganglion, left ankle and foot Assessments Date Code Description Provider 06/27/2019 G43.019 Migraine without aura, intractable, without Charles Quiñones M.D. status migrainos 06/27/2019 G24.01 Drug induced subacute dyskinesia Charles Quiñones M.D. 2019 M17.0 Bilateral primary osteoarthritis of knee Evans Vuong M.D. 05/10/2019 M17.0 Bilateral primary osteoarthritis of knee Evans Vuong M.D. 04/26/2019 M17.0 Bilateral primary osteoarthritis of knee Evans Vuong M.D. 04/26/2019 M67.472 Ganglion, left ankle and foot Evans Vuong M.D. Plan of Treatment Future Appointment(s):09/27/2019 2:45 pm - Charles Quiñones M.D. at [facility]06/27/2019 - Charles Quiñones M.D.G43.019 Migraine without aura, intractable, without status migrainosNew Medication:Lidocaine 4% Nasal [place] - 1 spray each nostril as needed migraine max twice a dayFollow up :get Dr. Miguel's last 2 office notes 3-4 txqpwdQ58.01 Drug induced subacute dyskinesiaFollow up:get Movement disorder clinic notes from Functional Status Description No Information Available Mental Status Description No Information Available Referrals Description No Information Available
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
--- OUTSIDE RECORDS SUMMARY | 2019-07-09 20:01 | XMS REPORT | Continuity of Care Document ---
:1955 External Reference #:[id number] Author Name Evans Vuong M.D. (transmitted by agent of provider Mandie Ronquillo) Address [address] [place] [address] [place] [address] Care Team Providers Name Role Phone Melia Marin MD - Internal Care Team Information [employer] Medicine Problems Active Problems Provider Date Refractory migraine without aura Charles Quiñones M.D. Onset: 10/02/2014 Localized, primary osteoarthritis Evans Vuong M.D. Onset: 06/21/2015 Social History Type Date Description Comments Sex Unknown ETOH Use Denies alcohol use Tobacco Use Start: Unknown Patient has never smoked Smoking Status Reviewed: 05/24/19 Patient has never smoked Allergies, Adverse Reactions, Alerts Active Allergies Reaction Severity Comments Date Sulfa Antibiotics 03/21/2013 Dilaudid 03/21/2013 Oxycodone 03/21/2013 Imitrex 03/21/2013 Bentyl 09/19/2013 Namenda Cough 12/19/2013 Medications Active Medications SIG Qnty Indications Ordering Date Provider Dihydroergotamine inject one 10units Charles Leggett 09/06/2012 Mesylate milliliters every Vani Quiñones 1mg/ml Solution 8 hours as needed for migraine. maximum daily dose = 3 mg max weekly dose is 6 mg Hydrocodone-Acetaminophe 1 or 2 tabs by Unknown n mouth every 6-8 5-325mg Tablets hours as needed for pain Mucinex 2 by mouth twice Unknown 600mg Tablets ER 12HR a day as needed Polyvinyl Alcohol 1 drop to both Unknown 1.4% eyes three times Solution daily Triaminolone Acetone prn Unknown Cream .1% Ammonium Lactate use twice a day Unknown 12% Cream CBD Oil Unknown Omeprazole 1 by mouth every Unknown 20mg Capsules DR day Albuterol Sulfate 1 application Unknown (2.5mg/3ML) every 4 hours as 0.083% Nebulizer needed Botox 1 injection every Unknown Solution Rec 3 months Lexapro 1 1/2 tab by Unknown 20mg [...] twice a Unknown 80-4.5mcg/Act day prn Aerosol Thalomid qd for cough Unknown 100mg Capsules Xanax 1 tablet by mouth Unknown 2mg Tablets three daily History Medications Lidocaine Viscous G43.019 Charles SAntionette 01/25/2019 - HCL Vani Quiñones 01/25/2019 2% Solution Lidocaine Viscous Take 4mL 100ml G43.019 Charles SAntionette 01/25/2019 - intranasally with a Vani Quiñones 01/25/2019 2% Solution swab daily, as needed for migraines . May take up to 3 times a week. Lidocaine Viscous Take 4mL 100ml G43.019 Charles SAntionette 12/20/2018 - intranasally with a Vani Quiñones 01/25/2019 [...] Injection Synvisc Or Synvisc-One Evans Vuong M.D. 04/26/2019 Injection 1 MG Injection Synvisc Or Synvisc-One Evans Vuong M.D. 04/26/2019 Injection 1 MG Injection [...] M.D. 10/16/2015 1 Unit Injection Injection Onabotulinumtoxin Lea Monsalve NP 07/04/2015 1 Unit Injection Depomedrol 80MG Evans Vuong M.D. 06/21/2015 Injection Injection Onabotulinumtoxin Lea Monsavle NP 04/03/2015 1 Unit Injection Injection Onabotulinumtoxin Bello, Leamary Raiens NP 01/02/2015 1 Unit Injection Injection Onabotulinumtoxin A, Charles Quiñones M.D. 10/02/2014 1 Unit Injection Injection Onabotulinumtoxin Bello, Charles Quiñones M.D. 07/03/2014 1 Unit Injection Injection Onabotulinumtoxin Bello, Charles Quiñones M.D. 03/27/2014 1 Unit Injection Injection Onabotulinumtoxin Bello, Charles Quiñones M.D. 12/19/2013 1 Unit Injection Injection Onabotulinumtoxin Bello, Charles Quiñones M.D. 09/19/2013 1 Unit Injection Injection Onabotulinumtoxin Bello, Charles Quiñones M.D. 06/13/2013 1 Unit Injection Injection Onabotulinumtoxin Bello, Charles Quiñones M.D. 03/08/2013 1 Unit Injection Synvisc Or Synvisc-One Evans Vuong M.D. 12/13/2012 Injection 1 MG Injection Synvisc Or Synvisc-One Evans Vuong M.D. 12/13/2012 Injection 1 MG Injection Injection Onabotulinumtoxin Bello, Charles Quiñones M.D. 12/06/2012 1 Unit Injection [...] 06/14/2012 Injection 1 MG Injection Injection Onabotulinumtoxin Bello, Charles Quiñones M.D. 05/31/2012 1 Unit Injection Injection Onabotulinumtoxin Bello, Charles Quiñones M.D. 05/31/2012 1 Unit Injection Immunizations Description No Information Available Vital Signs Date Vital Result Comment 2019 9:00am Height 64 inches 5'4" Weight 144.00 lb BP Systolic 100 mmHg BP Diastolic 64 mmHg Body Temperature 97.6 F Pain Level 7 BMI (Body Mass Index) 24.7 kg/m2 05/10/2019 8:55am Height 64 inches 5'4" Weight 144.00 lb Heart Rate 85 /min BP Systolic 120 mmHg BP Diastolic 78 mmHg Body Temperature 97.8 F Pain Level 5 BMI (Body Mass Index) 24.7 kg/m2 Results Description No Information Available Procedures Date Code Description Status 04/26/2019 03982 Inject/Drain Joint/Bursa Major W/O US Completed Medical Devices Description No Information Available Encounters Type Date Location Provider Dx Diagnosis Office Visit 04/26/2019 Orthopedic Evans Vuong, M17.0 Bilateral primary 1:00p [facility] osteoarthritis of knee M67.472 Ganglion, left ankle and foot Office Visit 12/20/2018 2:30p [place] Bear Quintero, G43.019 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 05/10/2019 M17.0 Bilateral primary osteoarthritis of knee Evans Vuong M.D. 04/26/2019 M17.0 Bilateral primary osteoarthritis of knee Evans Vuong M.D. 04/26/2019 M67.472 Ganglion, left ankle and foot Evans Vuong M.D. 12/20/2018 G43.019 Migraine without aura, intractable, without Bear Quintero NP status migrainos Plan of Treatment Future Appointment(s):06/27/2019 2:45 pm - Charles Quiñones M.D. at [place] [facility]2019 - Evans Vuong M.D.M17.0 Bilateral primary osteoarthritis of kneeFollow up:Can do repeat injection in November. Call when repeat injection needed and we will get approval, if more troubles before November, call for re-evaluation Functional Status Description No Information Available Mental Status Description No Information Available Referrals Description No Information Available
[2019-07-09] MEDS ORDERED: NS 0.9% 1000 ML** 1,000 ML IV ONE ×2 (20:23→21:30)
--- NOTE | 2019-07-09 20:26 | ED ---
Complex/Multi-Sys Presentation - HPI Summary HPI Summary: This patient is a 64 year old F presenting to ED with a chief complaint of chest pain and left arm numbness since three hours [employer]ER SERVIC[employer]. Patient was watching TV when the numbness and pain started. Patient states that her left arm numbness is described as like a piece of wood initially and now feels half asleep and just weird. She denies seeing any changes in the color of her arm. Patient also had a migraine since 0230 this morning. The migraine is localized to the left-side. Patient usually uses Lidocaine nasal spray for migraines, which helped the migraine this morning but the migraine came back later in the day. Patient also has a change in her voice, but she states it is due to the migraine and tardive dyskinesia. Patient has a history of clots and she is supposed to have a CT tomorrow to evaluate. She is currently on Xarelto. The patient rates the pain 8/10 in severity. Symptoms aggravated by nothing. Symptoms alleviated by Lidocaine nasal spray. Patient reports chronic neck pain , mild nausea. Patient denies vomiting, vision problems. PMHx of asthma, COPD, tardive dyskinesia, but no CVA. - History Of Current Complaint Chief Complaint: EDChestPainROMI Hx Obtained From: Patient Onset/Duration: Sudden Onset, Lasting Hours - Starting three hours [employer] SERVIC[employer]AN, Resolved Severity Currently: Severe Severity Initially: Severe Location: Pain At: - Left chest, migraine left head Character: Migraine Aggravating Factor(s): Nothing Alleviating Factor(s): Lidocaine nasal spray Associated Signs And Symptoms: Positive: Headache, Chest Pain, Nausea. Negative : Vomiting - Allergies/Home Medications Allergies/Adverse Reactions: Allergies Allergy/AdvReac Type Severity Reaction Status Date / Time deutetrabenazine Allergy See Comment Verified 07/09/19 20:43 [From Austedo] erenumab-aooe Allergy Unknown Verified 07/09/19 20:43 [From Aimovig Autoinjector] Reaction Details fremanezumab-vfrm Allergy Constipatio Verified 07/09/19 20:43 [From Ajovy] n hydromorphone [From Dilaudid] Allergy Vomiting Verified 07/09/19 20:43 Iodinated Contrast Media Allergy Difficulty Verified 07/09/19 20:43 Breathing memantine [From Namenda] Allergy Coughing Verified 07/09/19 20:43 oxycodone Allergy Vomiting Verified 07/09/19 20:43 prochlorperazine Allergy See Comment Verified 07/09/19 20:43 [From Compazine] Sulfa (Sulfonamide Allergy Rash And Verified 07/09/19 20:43 Antibiotics) Itching sumatriptan [From Imitrex] Allergy See Comment Verified 07/09/19 20:43 Home Medications: Home Medications Rivaroxaban TAB(*) [Xarelto 20 mg] 20 mg PO DAILY 07/10/19 [History Confirmed ] PMH/Surg Hx/FS Hx/Imm Hx Endocrine/Hematology History: Reports: Hx Anemia - when younger Denies: Hx Diabetes Cardiovascular History: Reports: Hx Hypercholesterolemia, Other Cardiovascular Problems/Disorders - 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 Denies: Hx Coronary Artery Disease, Hx Hypertension Respiratory History: Reports: Hx Asthma, Hx Chronic Obstructive Pulmonary Disease (COPD) GI History: Reports: Hx Diverticulosis - diverticulitis, Hx Gastroesophageal Reflux Disease, Other GI Disorders - Chroninc constipation History: Reports: Hx Kidney Infection Musculoskeletal History: Reports: Hx Back Problems, Hx Fibromyalgia, Other Musculoskeletal History - Complex pain syndrome Sensory History: Reports: Hx Contacts or Glasses - glasses Denies: Hx Hearing Aid Opthamlomology History: Reports: Hx Contacts or Glasses - glasses Neurological History: Reports: Hx Migraine, Other Neuro Impairments/Disorders - 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 Denies: Hx CVA Psychiatric History: Reports: Hx Anxiety - with panic attacks, Hx Depression, Hx Panic Disorder, Hx Post Traumatic Stress Disorder, Hx Inpatient Treatment, Hx Community Mental Health Tx, Other Psychiatric Issues/Disorders - multiple personality disorder Denies: Hx Eating Disorder, Hx of Violent Episodes Against Others - Cancer History Cancer Type, Location and Year: Breast cancer right breast Hx Chemotherapy: Yes - 7017-2270 Hx Radiation Therapy: Yes - [id number] - Surgical History Surgery Procedure, Year, and Place: Jaw surgery (1969, 1972, 1990), Hysterectomy (1987), Spinal fusion C3-7, L4-S1, Sinus (2005), Baldder tvt (2001 , 2009, 2016), ORIF right ankle (2009), Infectious Disease History: No Infectious Disease History: Reports: Hx of Known/Suspected MRSA - pt stated about 1 year ago, Hx Shingles Denies: Traveled Outside the [place] in Last 30 Days - Family History Known Family History: Positive: Unknown - Patient is a poor historian, reports mother might have had schizophren - Social History Alcohol Use: None Alcohol Amount: 1 glass wine Hx Substance Use: No Substance Use Type: Reports: None Hx Tobacco Use: No Smoking Status (MU): Never Smoked Tobacco Review of Systems Eyes: Negative - Visual changes Positive: Chest Pain Positive: Nausea. Negative: Vomiting Musculoskeletal: Other - Chronic neck pain Neurological: Other - Change in speech Positive: Headache - Migraine, Numbness - Left arm All Other Systems Reviewed And Are Negative: Yes Physical Exam - Summary Physical Exam Summary: Appearance: Well-appearing, Well-nourished, lying in bed comfortably Skin: Warm, dry, no obvious rash Eyes: sclera anicteric, no conjunctival pallor ENT: mucous membranes moist, pharynx appears normal Neck: Supple, nontender Respiratory: Clear to auscultation, no signs of respiratory distress Cardiovascular: Normal S1, S2. No murmurs. Normal distal pulses in tibial and radial bilaterally. Abdomen: Soft, nontender, normal active bowel sounds present Musculoskeletal: Normal, Strength/ROM Intact, Motor function in all 4 extremities is normal and symmetric. There is no rigidity or tremor noted. Neurological: A&Ox3, awake and alert, mentation is normal, speech is dysarthric (which is her baseline), Level of consciousness nml. The patient is alert and oriented. Cranial nerves are grossly intact. Gaze is conjugate and without nystagmus. Peripheral vision is intact to confrontation. There are no gross sensory abnormalities to light touch. There is no truncal or fine motor ataxia. Gait is normal. NIH: 1, speech is dysarthric, but patient reports that this is her baseline GCS: 15. Psychiatric: affect is normal, does not appear anxious or depressed Triage Information Reviewed: Yes Vital Signs On Initial Exam: Initial Vitals Temp Pulse Resp BP Pulse Ox 98.4 F 92 16 127/90 96 07/09/19 19:39 07/09/19 19:39 07/09/19 19:39 07/09/19 19:39 07/09/19 19:39 Vital Signs Reviewed: Yes Procedures - Sedation Patient Received Moderate/Deep Sedation with Procedure: No Diagnostics - Vital Signs Vital Signs Temp Pulse Resp BP Pulse Ox 07/09/19 19:39 98.4 F 92 16 127/90 96 - Laboratory Result Diagrams: 07/09/19 20:32 07/09/19 20:32 Lab Statement: Any lab studies that have been ordered have been reviewed, and results considered in the medical decision making process. - Radiology CXR Radiology Interpretation Completed By: ED Physician Summary of Radiographic Findings: No acute processes, pending official radiology report. - CT Brain CT Interpretation Completed By: Radiologist Summary of CT Findings: Patient motion without definite acute intracranial abnormality. Dr. Rodgers has reviewed this radiology report. - EKG 1942 Cardiac Rate: NL - 85 BPM EKG Rhythm: Sinus Rhythm ST Segment: Normal Ectopy: None Summary of EKG Findings: NSR at 85 BPM, P waves, QRS complex, and T waves are within normal limits, T waves and intervals are normal, no ischemic changes. This is a normal EKG. Dr. Rodgers has reviewed and interpreted this EKG. 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 Non-Paretic Hand: Both Correctly Best Gaze (Only Horizontal Eye Movement): Normal Visual Field Testing: No Visual Loss Facial Paresis-Pt to Smile & Close Eyes or Grimace Symmetry: Normal/Symmetrical Motor Function - Right Arm: No Drift-Holds 10 Seconds Motor Function - Left Arm: No Drift-Holds 10 Seconds Motor Function - Right Leg: No Drift-Holds 10 Seconds Motor Function - Left Leg: No Drift-Holds 10 Seconds Limb Ataxia-Must be out of Proportion to Weakness Present: Absent Sensory (Use Pinprick to Test Arms/Legs/Trunk/Face): Normal Best Language (Describe Picture, Name Items): No Aphasia Dysarthria (Read Several Words): Slurs Some Words Extinction and Inattention: No Abnormality Total Score: 1 Re-Evaluation - Re-Evaluation First Eval Re-Evaluation Time: 21:23 Comment: Discussed results with patient. Patient reports her headache is very bad. Patient agrees to be admitted for observation. Patient will be admitted to [facility] with dx of TIA. Complex Multi-Symp Course/Dx Course Of Treatment: This patient is a 64 year old F presenting to ED with a chief complaint of chest pain and left arm numbness since three hours [employer]IC[employer]. EKG at 1942 revealed NSR at 85 BPM, P waves, QRS complex, and T waves are within normal limits, T waves and intervals are normal, no ischemic changes. This is a normal EKG. Brain CT revealed patient motion without definite acute intracranial abnormality. CXR revealed no acute processes, pending official radiology report. Blood work revealed Hgb 11.8, lymphocytes 0.8, INR 1.66, APTT 74.7, glucose 125. UA revealed urine specific gravity 1.004. In the ED course, patient received Benadryl, fluids, Toradol. Discussed patient case with Dr. Freeman, hospitalist, who accepted the patient for admission to [facility]. Patient will be admitted to [facility] with dx of TIA. Patient understands and agrees with this plan. - Diagnoses Provider Diagnoses: TIA (transient ischemic attack) - Physician Notifications Discussed Care Of Patient With: Kvng Freeman Time Discussed With Above Provider: 21:37 Instructed by Provider To: Admit As Inpatient - Discussed patient case with Dr. Freeman, hospitalist, who accepted the patient for admission to [facility]. Discharge ED - Sign-Out/Discharge Documenting (check all that apply): Patient Departure - Admit - Discharge Plan Condition: Fair Disposition: ADMITTED TO [facility] - Billing Disposition and Condition Condition: FAIR Disposition: Admitted to [facility] - Attestation Statements Document Initiated by Yaakovibe: Yes Documenting Scribe: Anshu Mejia Provider For Whom Damian is Documenting (Include Credential): Darryl Rodgers MD Scribjessica Attestation: Anshu Combs, scribed for Darryl Rodgers MD on 07/10/19 at 0339. Scribe Documentation Reviewed: Yes Provider Attestation: The documentation as recorded by the Anshu greenwood accurately reflects the service I personally performed and the decisions made by me, Darryl Rodgers MD Status of Scribe Document: Viewed
[2019-07-09 20:43] LABS: ABS Basophils 0.1 10^3/ul (0-0.2); ABS Eosinophils 0.2 10^3/ul (0-0.6); ABS Lymphocytes 0.8 10^3/ul (1.0-4.8); ABS Monocytes 0.5 10^3/ul (0-0.8); ABS Neutrophils 3.3 10^3/ul (1.5-7.7); Eosinophil % 4.5 %; Hematocrit 36 % (35-47); Hemoglobin 11.8 g/dL (12.0-16.0); Lymphocyte % 16.3 %; Mean Corpuscular HGB Conc 33 g/dL (31-36); Mean Corpuscular Hemoglobin 29 pg (27-31); Mean Corpuscular Volume 87 fL (80-97); Mean Platelet Volume 7.4 fL (7.4-10.4); Nucleated Red Blood Cells % 0.1; Platelet Count 435 10^3/uL (150-450); Red Blood Count 4.12 10^6 /uL (3.70-4.87); Red Cell Distribution Width 15 % (10-15); White Blood Count 4.9 10^3/uL (3.5-10.8)
[2019-07-09 20:58] LABS: Activated Partial Thrombo Time 74.7 seconds (26.0-38.0); INR 1.66 (0.82-1.09)
[2019-07-09 20:59] LABS: Albumin 4.2 g/dL (3.2-5.2); Albumin/Globulin Ratio 1.6 (1-3); BUN/Creatinine Ratio 11.3 (8-20); Calcium 9.3 mg/dL (8.6-10.3); EGFR African American 99.7 (>60); EGFR Non-African American 82.4 (>60); Globulin 2.7 g/dL (2-4); HDL Cholesterol 33.9 mg/dL; Potassium 4.2 mmol/L (3.5-5.0); Total Bilirubin 0.2 mg/dL (0.2-1.0); Total Protein 6.9 g/dL (6.4-8.9)
[2019-07-09] MEDS ORDERED: diPHENhydraMINE IV* 50 MG/ML 1 ml VIAL (BENADRYL) IV ONE (21:27)
[2019-07-09] MEDS ORDERED: NS 0.9% 1000 ML** 2,000 ML IV ONE (21:27)
[2019-07-09] MEDS ORDERED: Ketorolac INJ* 30 MG/ML 1 ML VIAL IV PUSH ONE (21:27)
[2019-07-09 21:34] LABS: Urine Appearance Clear; Urine Bilirubin Negative (Negative); Urine Blood Negative (Negative); Urine Color Straw; Urine Glucose Negative (Negative); Urine Ketones Negative (Negative); Urine Nitrite Negative (Negative); Urine Protein Negative (Negative); Urine Specific Gravity 1.004 (1.010-1.030); Urine Urobilinogen Negative (Negative)
[2019-07-09] MEDS ORDERED: Morphine 4 MG/ML VIAL (1 ml) 4 MG/ML VIAL IV ONE (22:21)
[2019-07-09] MEDS ORDERED: Polyethylene Glycol 3350* 17 GM PACKET PO PRN (23:47)
[2019-07-09] MEDS ORDERED: Albuterol HFA INHALER* 8 gm MDI INH PRN (23:47)
[2019-07-09] MEDS ORDERED: Ammonium Lactate 12% 1 APPLIC TUBE TOPICAL PRN (23:47)
[2019-07-09] MEDS ORDERED: Ondansetron ODT TAB* 4 MG PO PRN (23:47)
[2019-07-09] MEDS ORDERED: Dihydroergotamine (D.H.E.)* 1 MG/ML 1 ML AMP IM PRN (23:47)
--- NOTE | 2019-07-10 02:00 | HP ---
CC: Dr. Marin; Dr. Quiñones * HISTORY AND PHYSICAL: DATE OF ADMISSION: 07/09/19 PRIMARY CARE PROVIDER: Dr. Marin in [place]. NEUROLOGIST: Dr. Quiñones. HEALTHCARE PROXY: Her daughter and her son. CODE STATUS: DNR discussed with the patient. Filled out MOLST on her behalf. SOURCE OF INFORMATION: History obtained from interview of the patient, review of past medical records. RELIABILITY: Good. CHIEF COMPLAINT: Left arm numbness and weakness. HISTORY OF PRESENT ILLNESS: This is a 64-year-old female with a past medical history notable for cervical neck laminectomy; breast cancer, status post chemo and RT; reported aortic blood clot, now on anticoagulation; as well as multiple psychiatric comorbidities; chronic migraines, on advance therapies. Her last hospital stay here was to the emergency room in February of this year with difficulty speaking, noticed aphasia and slurred speech, discharged with a presumptive diagnosis of migraine. Today, was having a "bad day" because her migraines were worst. She notable has migraines most days of the week. Also, her car was broken down, so she did not go to worship. She was watching TV when suddenly her left arm felt "weird like a club." She spoke to a friend on the phone, recommended shaking her arm out, which she did. She held it over head and moved it around. It did not feel weak at that time. She started to feel some improvement, but she still felt that her arm felt clumsy and her hand particularly felt weaker as if she were unable to open a cap of a can or bottle if she had to. A friend came over and checked her blood pressure and noted it to be higher than usual, but predominantly her arm and hand did not feel back to her baseline and so she sought further attention in the emergency room. Her arm returned to its baseline approximately half an hour prior to my evaluation for a total duration of approximately 6 hours. During this incident, she noted some chest soreness, but no shortness of breath, nausea, vomiting, lightheadedness, near loss of consciousness, changes in vision. She does note that she generally feels short of breath when she gets upset. PAST MEDICAL HISTORY: Includes: 1. An aortic blood clot, which she reports was diagnosed either here or [place] in the last 6 months for which she now takes blood thinner. So, confirmed with CTA of December 2018 acute thrombus in the anterior aspect of the upper abdominal aorta extending into and occluding celiac axis. 2. PTSD, multiple personality disorder with stay at [facility]. 3. COPD. 4. Asthma. 5. Migraines. 6. Chronic pain. 7. Cervical radiculopathy. 8. Tardive dyskinesia - drug induced. 9. C6-C7 laminectomy. 10. Right breast cancer, status post chemo/RT in 2005. 11. Hyperlipidemia. 12. Anxiety. 13. Panic disorder. 14. GERD. 15. Parkinson's disease. PAST SURGICAL HISTORY: 1. Jaw surgery. 2. Total hysterectomy. 3. Bladder surgery. 4. Ankle surgery. 5. C-spine fusion. 6. Back fusion. HOME MEDICATIONS: 1. Triamcinolone cream. 2. Sucralfate 1 g twice daily. 3. Rivaroxaban 20 mg twice daily. 4. MiraLAX 17 g daily as needed. 5. Ondansetron 4 mg 3 times a day as needed. 6. Omeprazole 20 mg daily. 7. Montelukast 10 mg at bedtime. 8. Magnesium oxide 400 mg daily. 9. Lidocaine 1 mg intranasally daily as needed for migraine. 10. Krill oil 1 cap daily. 11. Fenofibrate 145 mg daily. 12. Citalopram 20 mg daily. 13. DHE 1 g IM daily as needed for migraine. 14. Cyclobenzaprine 10 mg every 8 hours as needed. 15. Symbicort 160/4.5 one puff daily as needed. 16. Aspirin 81 mg daily. 17. Ammonium lactate topically twice daily as needed. 18. Aloe vera daily. 19. Albuterol 2 puffs every 4 hours as needed. 20. Alprazolam 1 mg 3 times a day as needed. ALLERGIES: DEUTETRABENAZINE, ERENUMAB-AOOE, FREMANEZUMAB-VFRM, HYDROMORPHONE, IODINATED CONTRAST MEDIA, MEMANTINE, OXYCODONE, PROCHLORPERAZINE, SULFA, SUMATRIPTAN. FAMILY HISTORY: Mother with a COPD, father with an VA and a CVA. SOCIAL HISTORY: Disabled. No tobacco. Lives alone. REVIEW OF SYSTEMS: As per HPI, also for her chronic cough, unchanged. Otherwise, all other systems are negative. PHYSICAL EXAMINATION GENERAL: Lying 30 degrees in bed, interacts, pleasant, in no apparent distress. VITAL SIGNS: When seen by this author 148/92, heart rate 79, 94% on room air, respiratory rate is 16, T-Max in the emergency room 98.4. HEENT: Oropharynx is clear. She has moist mucous membranes. She has non- elevated JVD. There is no cervical or supraclavicular lymphadenopathy. LUNGS: Clear to auscultation. HEART: Regular rate and rhythm. ABDOMEN: Soft and nontender. EXTREMITIES: Warm and well perfused. NEUROLOGIC: She is alert and oriented x3. She is mildly dysarthric. Cranial nerves are intact. She has 4/5 strength throughout in both her upper and lower extremities. The sensation is intact to soft touch throughout. She has no apparent anxiety, agitation, or depression. LABORATORY DATA: Reviewed, notable for hemoglobin of 11.8, platelets 435. INR is 1.6, glucose 125. Urine is bland. CT brain. Impression: The patient motion without definite acute intracranial abnormality. Chest x-ray: This author's interpretation; no active cardiopulmonary disease. ASSESSMENT AND PLAN: This is a 64-year-old female with a past medical history of cervical pathology, breast cancer, chronic migraines, experienced sudden onset of left arm numbness with some weakness more pronounced distally, now resolved after 6 hours. Left arm numbness and weakness. Differential includes cerebrovascular accident , transient ischemic attack, migraine aura, cervical radiculopathy amongst others. I do think that sudden onset of numbness is concerning for cerebrovascular accident or transient ischemic attack. She do not believe it has been known to have left arm numbness as a phenomenon with her migraines. She does have an old blood clot in her abdominal aorto, although there is some trajectory to return back to her brain and she is on full-dose anticoagulation. She had a CTA in February of this year. I will order an MRI with an MRA of the brain, check ultrasound of her carotids, repeat lipids in the morning, check transthoracic echocardiogram in the morning with bubble study, neuro checks overnight. Of note, the patient is already on aspirin and Xarelto. This is thought to represent a transient ischemic attack. The question will be whether adding Plavix for 21 days and then continue Plavix alone or transitioning aspirin to Plavix alone would be ideal as I suspect triple therapy may carry greater risks than benefits with her presenting symptoms. Of note, the patient does have a "full spine" MRI scheduled on 07/19/19 in [place] that is scheduled to occur over 2 days should the primary team be interested in further investigating cervical pathology as the etiology of her presenting symptoms. OTHER PROBLEMS: 1. COPD. Continue home medications. 2. Abdominal aorta blood clot. Continue Xarelto. 3. DVT prophylaxis. Xarelto. [id number]/[facility] #: [id number] MTDD
[2019-07-10] MEDS: ALPRAZolam TAB* 0.5 MG PO PRN ×3 (03:29→20:57)
[2019-07-10] MEDS: Acetaminophen TAB* 325 MG PO PRN ×3 (03:29→20:57)
[2019-07-10] MEDS: Cyclobenzaprine TAB* 10 MG PO PRN ×2 (03:29→17:21)
[2019-07-10 07:12] LABS: HDL Cholesterol 31.4 mg/dL
[2019-07-10] MEDS: Magnesium Oxide TAB* 400 MG PO SCH (07:38)
[2019-07-10] MEDS: Rivaroxaban TAB(*) 20 MG TAB PO SCH (07:39)
[2019-07-10] MEDS: Aspirin 81 mg CHEW TAB* 81 MG TAB.CHEW PO SCH (07:39)
[2019-07-10] MEDS: Sucralfate TAB* 1 GM PO SCH ×2 (07:39→20:58)
[2019-07-10] MEDS: Escitalopram * 20 MG TABLET PO SCH (07:39)
[2019-07-10] MEDS: Pantoprazole TAB * 40 MG TAB PO SCH (07:39)
[2019-07-10] MEDS: Mometasone/Formoter 200/5 MDI INH SCH ×2 (08:03→19:38)
--- NOTE | 2019-07-10 13:39 | ECHO ---
*[facility]* [place] [address] Fax #: [phone] Transthoracic Echocardiogram Patient: Barbara Sorto : 1955 Study Date: 07/10/2019 Age: 64 Gender: F HR: 82 bpm Height: 64 in /162.6 cm BSA: 1.72 m^2 Weight: 147.7 lb /67.1 kg BMI: 25.4 kg/m^2 *Teaching Specialists: * Lisa Menon [facility] *Referring Physician: * Kvng Freeman *Reading Physician: * Shukri Parks MD Indications: TIA. History: Chronic obstructive pulmonary disease. Aortic blood clot. The patient has a history of breast malignancy and is status post chemotherapy. Risk factors: Dyslipidemia. Conclusions Summary: - Left ventricle: Systolic function is normal. The estimated ejection fraction is 55-60%. Wall motion is normal; there are no regional wall motion abnormalities. - Atrial septum: A PFO is not demonstrated by color Doppler or agitated saline contrast. - Mitral valve: There is trace to mild regurgitation. - Aortic valve: There is no evidence of stenosis. There is trace regurgitation. - Tricuspid valve: There is trace regurgitation. - Ascending aorta: The ascending aorta is appears normal. - Pericardium, extracardiac: There is no significant pericardial effusion. - Pulmonary arteries: Systolic pressure can not be accurately estimated. - Study data: No prior study is available for comparison. Study data: Transthoracic echocardiogram. Procedure: Transthoracic echocardiography was performed. Image quality was fair. A bubble study was performed. Complete 2D, spectral Doppler, and color flow Doppler. Location: Bedside. Patient status: Inpatient. Patient room number: 432. No prior study is available for comparison. Rhythm: Normal sinus rhythm. Findings Left ventricle: The cavity size is normal. Wall thickness is mildly increased. Systolic function is normal. The estimated ejection fraction is 55-60%. Wall motion is normal; there are no regional wall motion abnormalities. Features are consistent with a pseudonormal left ventricular filling pattern, with concomitant abnormal relaxation and increased filling pressure (grade 2 diastolic dysfunction). Right ventricle: The cavity size is normal. Systolic function is normal. Left atrium: The atrium is moderately dilated. Right atrium: The atrium is normal in size. Atrial septum: A PFO is not demonstrated by color Doppler or agitated saline contrast. Negative Bubble Study images 81 and 82. Mitral valve: The leaflets are mildly thickened. There is no evidence of stenosis. There is trace to mild regurgitation. Aortic valve: The valve is trileaflet. Mild thickening involving the noncoronary cusp. There is no evidence of stenosis. There is trace regurgitation. Tricuspid valve: The leaflets are normal thickness. There is no evidence of stenosis. There is trace regurgitation. Pulmonic valve: Not well visualized. There is no evidence of stenosis. There is trace regurgitation. Aorta: Ascending aorta: The ascending aorta is appears normal. The aortic root appears normal. The aortic arch appears normal. Pericardium: A prominent pericardial fat pad is present. There is no significant pericardial effusion. Pulmonary arteries: The main pulmonary artery is normal-sized. Systolic pressure can not be accurately estimated. Systemic veins: Inferior vena cava: The vessel is dilated. There is (>= 50%) respiratory change in the IVC dimension. Measurements Left ventricle Value Ref Aortic valve Value Ref PAWAN, LAX 4.4 cm 3.8 - 5.2 Aneta diam, ED 2.2 cm ---- ESD, LAX 2.9 cm 2.2 - 3.5 Peak v, S 1.3 m/sec ---- FS, LAX 34 % 27 - 45 VTI, S 29.0 cm ---- PW, ED, LAX (H) 1.1 cm 0.6 - 0.9 Mean grad, S 3.0 mm Hg ---- FS 34 % 27 - 45 Peak grad, S 7.0 mm Hg ---- PW, ED (H) 1.1 cm 0.6 - 0.9 LVOT/AV, VTI ratio 0.72 ---- E', lat aneta, TDI (L) 8.6 cm/sec >=10.0 E/e', lat aneta, 11 Mitral valve Value Ref TDI Peak E 0.97 m/sec ---- E', med aneta, TDI 7.2 cm/sec >=7.0 Peak A 0.7 m/sec -- -- E/e', med aneta, 14 Decel time 137 ms ---- TDI Peak grad, D 3.8 mm Hg ---- E', avg, TDI 7.9 cm/sec Peak E/A ratio 1.4 ---- E/e', avg, TDI 12 <=14 Pulmonic valve Value Ref LVOT Value Ref Peak v, S 0.97 m/sec ---- Peak lanie, S 1.06 m/sec Peak grad, S 4.0 mm Hg ---- VTI, S 21.0 cm Mean grad, S 2 mm Hg Aortic root Value Ref Root diam 3.3 cm <3.9 Ventricular septum Value Ref IVS, ED (H) 1.2 cm 0.6 - 0.9 Ascending aorta Value Ref AAo AP diam, S 3.4 cm ---- Right ventricle Value Ref PAWAN, LAX 3.1 cm Aortic arch Value Ref PAWAN minor ax, A4C 3.4 cm 1.9 - 3.5 Arch diam 2.5 cm ---- mid Decending aorta Value Ref Left atrium Value Ref Horace peak lanie 0.83 m/sec ---- AP dim, ES 3.40 cm 2.70 - 3.80 Inferior vena cava Value Ref ML dim, A4C 4.3 cm Diam 2.2 cm ---- SI dim, A4C 4.4 cm Vol/bsa, ES, 1-p 31 ml/m^2 11 - 40 A4C Vol/bsa, ES, A/L (H) 45 ml/m^2 16 - 34 Right atrium Value Ref SI dim, ES 4.1 cm 3.4 - 5.3 ML dim, ES, A4C 3.6 cm 2.6 - 4.4 SI dim, ES, A4C 4.1 cm 3.4 - 5.3 Estimated RAP 8 mm Hg Legend: (L) and (H) bree values outside specified reference range. Prepared and electronically signed by Shukri Parks MD 07/10/2019 13:39
--- NOTE | 2019-07-10 16:14 | PN ---
Subjective Date of Service: 07/10/19 Interval History: She felt her numbness and weakness totally resolved. She complained of migraine on daily basis, for which she is only taking nasal lidocaine. She reported that she tried all migraine medications without any help. She also reported she has persistent rhinorrhea which her neurosurgeon had a concern for CSF leak, which is the reason for MRI spine end of this month. Objective Active Medications: Acetaminophen (Tylenol Tab*) 650 mg PO Q6H PRN PRN Reason: PAIN - MILD Last Admin: 07/10/19 09:44 Dose: 650 mg Albuterol (Ventolin Hfa Inhaler*) 2 puff INH Q4H PRN PRN Reason: asthma Alprazolam (Xanax Tab*) 1 mg PO TID PRN PRN Reason: ANXIETY Last Admin: 07/10/19 14:31 Dose: 1 mg Ammonium Lactate (Lac-Hydrin 12 %) 1 applic TOPICAL BID PRN PRN Reason: itchy skin Aspirin (Aspirin 81 Mg Chew Tab*) 81 mg PO DAILY [facility] Last Admin: 07/10/19 07:39 Dose: 81 mg Cyclobenzaprine HCl (Flexeril Tab*) 10 mg PO Q8H PRN PRN Reason: JOINT PAIN Last Admin: 07/10/19 03:29 Dose: 10 mg Dihydroergotamine Mesylate (D.H.E. 45*) 1 mg IM DAILY PRN PRN Reason: MIGRAINE HEADACHE Escitalopram Oxalate (Lexapro *) 20 mg PO DAILY [facility] Last Admin: 07/10/19 07:39 Dose: 20 mg Fenofibrate (Tricor 160 Mg) 160 mg PO DAILY [facility]; Protocol Last Admin: 07/10/19 07:39 Dose: 160 mg Magnesium Oxide (Magox 400 Tab*) 400 mg PO DAILY [facility] Last Admin: 07/10/19 07:38 Dose: 400 mg Mometasone Furoate/Formoterol Fumar (Dulera 200/5 Mdi*) 2 puff INH BID [facility] Last Admin: 07/10/19 08:03 Dose: 2 puff Montelukast Sodium (Singulair Tab*) 10 mg PO BEDTIME [facility] Ondansetron HCl (Zofran Odt Tab*) 4 mg PO TID PRN PRN Reason: NAUSEA Pantoprazole Sodium (Protonix Tab*) 40 mg PO DAILY [facility] Last Admin: 07/10/19 07:39 Dose: 40 mg Polyethylene Glycol/Electrolytes (Miralax*) 17 gm PO DAILY PRN PRN Reason: CONSTIPATION Rivaroxaban (Xarelto(*)) 20 mg PO DAILY [facility] Last Admin: 07/10/19 07:39 Dose: 20 mg Sucralfate (Carafate*) 1 gm PO BID [facility] Last Admin: 07/10/19 07:39 Dose: 1 gm Vital Signs - 8 hr 07/10/19 07/10/19 07/10/19 11:15 14:31 15:04 Temperature 97.7 F 97.4 F Pulse Rate 82 81 Respiratory 18 18 20 Rate Blood Pressure 142/81 134/83 (mmHg) O2 Sat by Pulse 97 97 Oximetry 07/10/19 16:04 Temperature Pulse Rate Respiratory 18 Rate Blood Pressure (mmHg) O2 Sat by Pulse Oximetry Oxygen Devices in Use Now: None Exam: Appearance: alert Respiratory: Clear to Auscultation Cardiovascular: NL Sounds; No Murmurs; No JVD Neurological: Cranial nerve intact other than facial dyskinesia. Muscle strength 5 over all 4 limbs Sensation intact. Extremity: limping on walking which is long standing Result Diagrams: 07/09/19 20:32 07/09/19 20:32 Assess/Plan/Problems-Billing Assessment: 64 y/o female with history of migraine, cervical neck laminectomy, breast ca, aortic blood clots on anticoagulation, presented with unilateral weakness and numbness, self resolving; likely TIA vs hemiplegic migraine. - Patient Problems (1) TIA (transient ischemic attack) Current Visit: Yes Status: Acute Code(s): G45.9 - TRANSIENT CEREBRAL ISCHEMIC ATTACK, UNSPECIFIED SNOMED Code(s): 771114216 Comment: Workup for TIA in view of multiple risk factors, though hemiplegic migraine, cervical myelopathy is also likely ABCD2 score 6 TTE neg, no PFO US carotid done today MRI brain + MRA was not done due to cervical implants (still tracing record) Neuro consult today pt has a scheduled MRI spine with her neurosurgeon end of this month (2) Aortic embolism or thrombosis Current Visit: Yes Status: Acute Code(s): I74.10 - EMBOLISM AND THROMBOSIS OF UNSPECIFIED PARTS OF AORTA SNOMED Code(s): 680295372 Comment: CTA December 2018, found to have acute thrombus in the anterior aspect of upper abdominal aorta extending into an occluding celiac axis. No hypercoaguable workup seen in our hospial system on Xarelto 20mg daily currently (3) Breast cancer Current Visit: Yes Status: Acute Code(s): C50.919 - MALIGNANT NEOPLASM OF UNSP SITE OF UNSPECIFIED FEMALE BREAST SNOMED Code(s): 370165874 Comment: History, s/p chemo and RT on remission currently (4) DVT prophylaxis Current Visit: Yes Status: Acute Code(s): Z29.9 - ENCOUNTER FOR PROPHYLACTIC MEASURES, UNSPECIFIED SNOMED Code(s): 857507403 Comment: on NOAC and aspirin currently Status and Disposition: Inpatient Medicine. Attestation Documenting Resident: Vilma Mata Supervising Physician: Jennifer Louis Attestation: This service has been performed in part by a resident under the direction of a teaching physician.I, Jennifer Louis, performed the service, or was physically present during the critical, or mccurdy portions of the service, furnished by the resident. I participated in the management of the patient.
--- NOTE | 2019-07-10 20:25 | CONS ---
CC: Dr. Marin, [place] * NEUROLOGY CONSULTATION: DATE OF CONSULT: 07/10/19 LOCATION: She is an inpatient in room 432. REFERRING PHYSICIAN: Dr. Kvng Freeman. CHIEF COMPLAINT: Left arm numbness. HISTORY OF PRESENT ILLNESS: Barbara Sorto is a 64-year-old right-handed woman well known to me, followed for many years for chronic migraines as well as several other medical issues. She was having a bad migraine on the day of admission while watching a NASCAR race. She was seated on her sofa with pills around her and an ice pack on her head from her migraine. She believes that she woke up from a sleep with a sense of numbness over left arm. She could move it and shake it around, but just felt numb. It started to get more intense pins and needle sensation. She noted some of it radiating into her shoulder and upper chest. She called her friend who brought over a blood pressure cuff and her blood pressure was elevated. The arm was stinging in pins and needles and so she presented to the emergency room. In the emergency room, the symptoms resolved. It overall lasted approximately 5 to 6 hours. She could always move the arm and there is never any sense of weakness. She did not notice any numbness on her face or legs. It has been resolved until little bit today when I came in and she was sleeping and she woke up with some numbness and tingling in her left hand briefly. She has a history of cervical spine disease with prior fusion. She also has a history of lumbar spine disease. She has chronic migraines and has been on numerous preventative and abortive therapies without significant benefit for any length of time. I saw her recently in my office and she had been prescribed intranasal lidocaine 4% as an abortive. She has tried Botox and all the 3 calcitonin gene-related peptide antagonist. She uses dihydroergotamine at home as abortive therapy. There is no prior history of stroke or transient ischemic attack. She is on anticoagulation therapy for a clot seen in her abdominal aorta at the level of the celiac arteries. PAST MEDICAL HISTORY: Complex and includes the recent aortic blood clot diagnosed this past year, chronic migraines, depression and anxiety, cervical and lumbar spine surgeries with fusion, tardive dyskinesia from Compazine, history of cervical radiculopathy, COPD, asthma, breast cancer treated in 2005, hyperlipidemia. PAST SURGICAL HISTORY: She has also had jaw surgery, hysterectomy, bladder surgery, ankle surgery. MEDICATIONS AT HOME: Consist of: 1. Alprazolam 1 mg p.o. t.i.d. 2. Aspirin 81 mg p.o. daily. 3. Cyclobenzaprine 10 mg p.o. every 8 hours as needed for back pain. 4. Dihydroergotamine 1 mg intramuscularly up to 6 doses per week as needed for migraine. 5. Fenofibrate 145 mg per day. 6. Lidocaine 4% intranasally p.r.n. up to twice per day for migraine. 7. Magnesium oxide 400 mg p.o. daily. 8. Omeprazole 20 mg p.o. daily. 9. Ondansetron 4 mg p.o. t.i.d. as needed for nausea. 10. Rivaroxaban 20 mg p.o. b.i.d. 11. Sucralfate 1 g p.o. daily. ALLERGIES: She is listed as having allergies to IODINATED CONTRAST MEDIA, MEMANTINE, OXYCODONE, and had extrapyramidal reactions to PROCHLORPERAZINE. She is allergic to SULFA DRUGS. I believe she had psychiatric side effects from HYDROMORPHONE. SOCIAL HISTORY: She is on disability. She does not smoke. She lives alone. She has an aide who accompanied her at her last visit with me. REVIEW OF SYSTEMS: She has not had any fevers or chills lately. No recent falls. She has a chronic cough, which is unchanged. There has been no change in her chronic neck pain. The rest of the 14-point review of systems is otherwise unremarkable other than the history of present illness and past medical history. PHYSICAL EXAM: She is a little overweight. Temperature 97.4, blood pressure 134/83, heart rate in the 80s and regular, respiratory rate is 20, and oxygen saturation is 97% on room air. Heart tones sound normal and regular. Neck is limited in range of motion, but there is no meningismus. There are no cervical bruits. There are no supraclavicular bruits. Pulses are present at both wrists. Lungs reveal a few wheezes anterolaterally. Neurological Exam: Pupils are equal and reactive to light from 3.5 down to 2.5 mm. Funduscopic exam is normal bilaterally. There is no ptosis. Facial musculature is notable for all buccolingual dyskinesias. Facial musculature is otherwise symmetric. Facial sensation to pin and light touch is symmetrical on both sides. Palate and tongue otherwise appear normal other than the dyskinesias. Speech is dysarthric, but unchanged from when I saw her a couple of weeks ago. On motor exam, she has normal muscle tone in the upper and lower extremities. She has normal strength proximally and distally in upper and lower extremities. There is no pronator drift. Sensory exam is notable for diminished pin discrimination on median distribution bilaterally. She reports that light touch is less on the left hand than the right. She reports pin discrimination in the upper arms is less on the left arm than the right. There is no particular dermatomal or peripheral nerve distribution. Temperature sensation is reported as symmetrical in the legs. Light touch and pin are reported as symmetrical in the legs as well. Reflexes are hypoactive, but present in biceps, triceps, and brachioradialis. They are also present at the knees. Plantar responses are flexor. I did not attempt to ambulate her. She is tired, but able to provide a coherent history, but she falls asleep pretty easily. Language is fluent. DIAGNOSTIC STUDIES/LAB DATA: Laboratory data includes a carotid Doppler study from earlier this morning interpreted as showing no significant carotid stenosis. She had a CT scan of the brain interpreted as showing movement artifact, but no abnormalities. I reviewed the images and I agreed. MRIs of the brain were ordered, but were denied by Radiology because of her hardware in her spine. I discussed it with them and explained that she has had MRI scans up in [place] and these are embedded structural hardware and yet they still say that "the window glass cutter off won't let us." A transthoracic echocardiogram was done earlier this morning. Impression was normal left ventricular function, trace to mild mitral regurgitation and trace tricuspid regurgitation. There were no significant abnormalities and no evidence of a patent foramen ovale. IMPRESSION AND PLAN: Impression is that of a possible transient ischemic attack , but I think just likely is cervical root irritation from her chronic neck problems. Symptoms are limited to her arm. She woke up with the symptoms and that went from numb to tingling and pins and needles, which is more suggestive of a peripheral process than central . Nevertheless, she certainly has vascular disease and an MRI scan would be certainly warranted if we could obtain one. Since Radiology refuses, I will put in for CT perfusion study of the brain as well as a CT angiogram of the head and neck. She received intravenous contrast just in February for CT angiogram and so in spite of the record of having an allergy to IODINATED CONTRAST DYE, she appears to be able to tolerate the currently available CT contrast dye. She is currently anticoagulated and I do not recommend any additional antiplatelet therapy other than her aspirin. Given the differential diagnosis including a cerebrovascular event, I discontinued her dihydroergotamine. I will continue to follow her along with you. [id number]/[facility] #: [id number] KRISHAN
[2019-07-10] MEDS ORDERED: Montelukast Sodium TAB* 10 MG PO SCH (21:00)
[2019-07-11] MEDS: Mometasone/Formoter 200/5 MDI INH SCH (08:10)
[2019-07-11] MEDS: Pantoprazole TAB * 40 MG TAB PO SCH (08:29)
[2019-07-11] MEDS: Rivaroxaban TAB(*) 20 MG TAB PO SCH (08:29)
[2019-07-11] MEDS: Magnesium Oxide TAB* 400 MG PO SCH (08:30)
[2019-07-11] MEDS: Escitalopram * 20 MG TABLET PO SCH (08:30)
[2019-07-11] MEDS: Aspirin 81 mg CHEW TAB* 81 MG TAB.CHEW PO SCH (08:30)
[2019-07-11] MEDS: ALPRAZolam TAB* 0.5 MG PO PRN ×2 (08:35→14:01)
[2019-07-11] MEDS: Sucralfate TAB* 1 GM PO SCH (08:47)
[2019-07-11] MEDS: Acetaminophen TAB* 325 MG PO PRN (12:42)
[2019-07-11] MEDS ORDERED: Ketorolac INJ* 15 MG/ML 1 ML VIAL IV PUSH PRN (14:00)
--- NOTE | 2019-07-11 14:05 | CONS ---
NEUROLOGY CONSULT FOLLOWUP: DATE OF FOLLOWUP: 07/11/19 HOSPITALIST: . LOCATION: She is an inpatient, room 432. CHIEF COMPLAINT: Left arm numbness. INTERVAL HISTORY: Since yesterday, Barbara feels that her arm numbness is improved. She notes a little bit in her hand. She has no new symptoms to report. MEDICATIONS: Reviewed and she remains on: 1. Albuterol 2 puffs as needed for asthma. 2. Alprazolam 1 mg p.o. t.i.d. p.r.n. anxiety. 3. Aspirin 81 mg p.o. daily. 4. Cyclobenzaprine 10 mg p.o. q.8 hours as needed for joint pain. 5. Lexapro 20 mg p.o. daily. 6. TriCor 160 mg p.o. daily. 7. Singulair 10 mg p.o. q.h.s. 8. Zofran 4 mg p.o. t.i.d. p.r.n. nausea. 9. Protonix 40 mg p.o. daily. 10. Rivaroxaban 20 mg p.o. daily. 11. Carafate 1 g p.o. b.i.d. Barbara was not examined today. I discussed with Barbara the controversy regarding the risks of MRI scanning with the spinal hardware that she has in. She has had MRI scans of her spine done since the spinal hardware was put in without any problems. However, the company that makes the hardware put out a statement that it has not been tested with MRI scans and they cannot make any statement as to whether or not it is safe in regards to a heating up or moving the hardware. I discussed the case with Suyapa in MRI as well as Dr. Beebe. I explained that the benefits of finding out whether Barbara actually had a cerebrovascular event would outweigh the potential risks especially given the fact that she has already had MRI scans in [place] without any ill effects. I explained this to Barbara and explained that the current recommendations for the company are that they cannot guarantee the safety of doing an MRI scans with the hardware in place. Barbara understands the risks involved and understands the potential benefits of finding out if she did in fact have a stroke and consents to having the MRI scan done. I put in a written note in the chart as well during my conversation with Barbara and my thinking regarding this particularly tricky clinical situation. [id number]/[facility] #: [id number] MTDAddison
[2019-07-11 15:50] VITALS: BP 141/82
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
== END 2019-07-11 17:08 | disposition home or self-care (01) ==
LOC: ED 19:37 → MEDTELE 23:50
PROVIDERS: ADMIT Internal Medicine; ATTEND Internal Medicine
DX: M54.12 Radiculopathy, cervical region (principal); G43.909 Migraine, unspecified, not intractable, without status migrainosus; I74.10 Embolism and thrombosis of unspecified parts of aorta; M50.30 Other cervical disc degeneration, unspecified cervical region; Z79.01 Long term (current) use of anticoagulants; C50.919 Malignant neoplasm of unspecified site of unspecified female breast; Z92.21 Personal history of antineoplastic chemotherapy; G89.4 Chronic pain syndrome; F41.0 Panic disorder [episodic paroxysmal anxiety]; E78.00 Pure hypercholesterolemia, unspecified; J45.909 Unspecified asthma, uncomplicated; J44.9 Chronic obstructive pulmonary disease, unspecified; K21.9 Gastro-esophageal reflux disease without esophagitis; R07.9 Chest pain, unspecified; R11.0 Nausea; Z79.899 Other long term (current) drug therapy; Z79.82 Long term (current) use of aspirin; R53.1 Weakness; R20.0 Anesthesia of skin
CPT/HCPCS: 36415; 70450; 70551; 71045; 80053; 80061; 81003; 83036; 83605; 84484; 85025; 85610; 85730; 87641; 93005; 93306; 93880; 94640; 96374; 96375; 96376; 99285; A9270-GY; G0378; J1110; J1200; J1885; J2270

== ENCOUNTER 2019-09-20 21:51 | Emergency (ER) | payer MEDICARE, OTHER ==
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
--- OUTSIDE RECORDS SUMMARY | 2019-09-20 22:20 | XMS REPORT | Summary of Care ---
:1955 Author Organization [facility] Address [address] [facility] [place] [address] Care Team Providers Name Role Phone Chalres Young MD Primary Care Provider Reason for Referral Diagnostic Testing (Routine) Status Reason Specialty Diagnoses / Referred By Referred To Procedures Contact Contact Authorized Radiology Diagnoses Obstruction of celiac artery Jack Rosas NP [place] [facility] Procedures VL ABDOMEN DUPLEX AORTA GRAFT LIMITED [facility] [place] [address] [place] [address] Phone: [place] [address] Phone: Reason for Visit Reason Comments Other Encounter Details Date Type Department Care Team Description 08/01/2019 Office Visit Tima Umana, Obstruction of celiac Surgery MD Natividad artery (Primary Dx) [address] [facility] 1 [place] [address] [place] [address] [phone] Allergies Active Allergy Reactions Severity Noted Date Comments Erenumab-Aooe Unknown Reaction 01/24/2019 Deutetrabenazine DIRECTOR COST Reaction 01/24/2019 depression Compazine Other 01/24/2019 Tardive dyskinsia Dilaudid (No Cough) 06/18/2011 Mirabegron Other 01/24/2019 cough Memantine Other 01/24/2019 cough Oxycodone Other 06/18/2011 Sulfa Drugs Cross Reactors 06/18/2011 Sumatriptan Succinate Cardiac Reaction 02/02/2012 Tegaderm 06/18/2011 documented as of this encounter (statuses as of 08/08/2019) Medications Medication Sig Dispensed Refills Start Date End Date Status cyclobenzaprine Take 10 mg by 0 Active (FLEXERIL) 10 MG Oral mouth THREE TIMES Tab DAILY. montelukast (SINGULAIR) Take 10 mg by 0 Active 10 MG Oral Tab mouth DAILY. albuterol Take 2 Puffs by 0 Active (PROVENTIL,VENTOLIN) 90 inhalation EVERY mcg/act FOUR HOURS. HYDROcodone-acetaminophe Take 1 Tab by 0 Active n (NORCO) 5-325 MG Oral mouth EVERY FOUR Tab HOURS NEEDED. Dihydroergotamine by Injection 0 Active Mesylate (D.H.E. 45 IJ) route NEEDED. OnabotulinumtoxinA by Injection 0 Active (BOTOX IJ) route EVERY 90 DAYS. memantine (NAMENDA) 10 Take 10 mg by 0 Active MG Oral Tab mouth TWICE DAILY. fenofibrate (TRICOR) 145 Take 145 mg by 0 Active MG Oral Tab mouth DAILY. escitalopram (LEXAPRO) Take 20 mg by 0 Active 10 MG Oral Tab mouth DAILY. Incontinence Supply 1 Units by Does 90 Each 3 08/23/2015 Active Disposable (PROTECTION not apply route PLUS CLASSIC MEDIUM) DAILY. Does not apply Misc ALPRAZolam 2 MG Oral Take by mouth 0 Active TabIndications: Anxiety, FOUR TIMES DAILY 1 mg am, 2mg noon, 1 mg - BEFORE MEALS & pm, 2 mg at hs NIGHTLY. Indications: Feeling Anxious, 1 mg am, 2mg noon, 1 mg pm, 2 mg at hs Magnesium 400 MG Oral Take 1 Tab by 0 Active Tab mouth DAILY. ammonium lactate by Topical route 0 Active (LAC-HYDRIN) 12 % Apply TWICE DAILY. externally Indications: 1 LotionIndications: 1 application BID application BID topically topically triamcinolone by Topical route 0 Active (KENALOG,ARISTOCORT) 0.1 DAILY NEEDED. % Apply externally Cream Budesonide-Formoterol Take by 0 Active Fumarate (SYMBICORT IN) inhalation TWO TIMES DAILY NEEDED. MEDICAL Indications: CBD 0 Active MARIJUANAIndications: oil CBD oil aspirin 81 MG Oral Tab Take 1 Tab by 30 Tab 0 01/13/2019 Active EC mouth DAILY. KRILL OIL PO Take by mouth 0 Active DAILY. SUCRALFATE Take by mouth 0 Active POIndications: 1 gm TWICE DAILY. Indications: 1 gm OMEPRAZOLE PO Take 20 mg by 0 Active mouth DAILY. Lidocaine 0.5 % Apply by Apply 0 Active externally externally route. AerosolIndications: for Indications: for migraines migraines Aloe Vera Concentrate 25 Take by mouth 0 Active MG Oral CapIndications: DAILY. unknown dose Indications: unknown dose Polyethylene Glycol 3350 Take by mouth. 0 Active (MIRALAX PO) rivaroxaban (XARELTO) 20 Take 1 Tab by 90 Tab 1 02/07/2019 Active MG Oral Tab mouth DAILY. ondansetron (ZOFRAN ODT) Take 4 mg by 0 Active 4 MG Oral TABLET mouth NEEDED. DISPERSIBLEIndications: Indications: Nausea and Vomiting Nausea and Vomiting Fexofenadine HCl Take by mouth 0 Active (MUCINEX ALLERGY PO) NEEDED. diphenhydrAMINE HCl Take by mouth 0 Active (BENADRYL ALLERGY PO) NEEDED. polyvinyl alcohol Place 1 Drop in 0 Active (ARTIFICIAL TEARS) 1.4 % both eyes EVERY 7 Ophthalmic Solution DAYS. Polyvinyl Place to the 0 Active Alcohol-Povidone (CLEAR external eye. EYES NATURAL TEARS OP) Coenzyme Q10 (COQ10) 400 Take by mouth 0 Active MG Oral Cap DAILY. Multiple Take by mouth 0 Active Vitamins-Minerals DAILY. (CENTRUM SILVER ADULT 50+ PO) Lactobacillus-Inulin Take by mouth. 0 Active ([facility]) Oral Chew Tab clopidogrel (PLAVIX) 75 Take 1 Tab by 90 Tab 3 08/01/2019 Active MG Oral Tab mouth DAILY. documented as of this encounter (statuses as of 08/08/2019) Active Problems Problem Noted Date Chest pain 01/12/2019 Vaginal Pap smear with LGSIL 01/20/2013 Elevated cholesterol 07/29/2012 DM (diabetes mellitus) 07/29/2012 GERD (gastroesophageal reflux disease) 07/29/2012 Anxiety 07/29/2012 Personal history of malignant neoplasm of breast 07/29/2012 History of cervical cancer 07/29/2012 ASCUS on Pap smear 02/02/2012 High risk HPV infection 02/02/2012 Migraine 02/02/2012 documented as of this encounter (statuses as of 08/08/2019) Social History Tobacco Use Types Packs/Day Years Used Date Never Smoker Smokeless Tobacco: Never Used Alcohol Use Drinks/Week oz/Week Comments No Sex Assigned at Date Recorded Not on file Job Start Date Occupation Industry Not on file Not on file Not on file Travel History Travel Start Travel End No recent travel history available. documented as of this encounter Last Filed Vital Signs Vital Sign Reading Time Taken Comments Blood Pressure 130/78 08/01/2019 2:22 PM EST Pulse 84 08/01/2019 2:22 PM EST Temperature - - Respiratory Rate - - Oxygen Saturation - - Inhaled Oxygen Concentration - - Weight 68.5 kg (151 lb) 08/01/2019 2:22 PM EST Height 162.6 cm (5' 4") 08/01/2019 2:22 PM EST Body Mass Index 25.92 08/01/2019 2:22 PM EST documented in this encounter Progress Notes Jack Rosas NP - 08/01/2019 2:00 PM EST PATIENT: Barbara Sorto : 1955 DATE OF SERVICE: 08/01/2019 CHIEF COMPLAINT: Chief Complaint Patient presents with Other Subjective HISTORY OF PRESENT ILLNESS: Barbara Sorto is a 64-y.o. female. 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 Patient denies any abdominal pain, no pain with eating and denies weight loss. Reports she is not feeling well today, achy all over. Had CT scans of abdomen done last week at [facility]. She does not have those records with her. Patient isbeing seen in [place] at the [facility]. She denies any chest pain, shortness of breath, or recent fever or chills. From previous note 01/24/2019 Barbara Sorto is a 63-y.o. female with h/o PUD, DM, breast cancer s/p mastectomy , vaginal hysterectomy, appendectomy and rectocele repair, who was transferred from [facility] with 1 week history oflower chest pain and CTA showing thrombus in anterior aspect of upper aorta. WBC and LFTs normal at OSH. Reports chest pain in the epigastric region started 1 week ago. It was not resolving so she presented to ED. pain aggravated by palpation. Pain is not pleuritis and does not worsen with deep breaths. Reports to be weak for the past 1 week. Denies trauma to the region, recent sickness, fevers, chills, cough, nausea, vomiting, constipation, diarrhea, dysuria. Denies prior similar episodes. Denies Afib. Denies prior [place], strokes, DVTs or any other clotting disease. Denies use of anticoagulants. PREVIOUS DIAGNOSTICS: 01/12/2019 IMPRESSION: 1. 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 Inflammatory stranding surrounds these occluded vessels. The etiology of these findings remains indeterminate,possibly secondary to underlying hypercoagulable state or potentiallytreatment related in the setting of known breast cancer. 2.Delayed images demonstrating complete occlusion and expansion of the splenic vein which extends into the confluence with the superior mesenteric vein. Portal vein appears patent. 3. Numerous splenic infarcts. 4. Upper lobe pulmonary nodules of uncertain chronicity. Metastases are not excluded. 5. Small left pleural effusion. 6. Focal wall thickening of the gallbladder fundus. No definite cholelithiasis. Adenomyomatosis is adiagnostic consideration. Other etiologies are not excluded. 7. Hepatic steatosis. Urgency: IMPORTANT. This report contains IMPORTANT results which require clinical attention. Recommendation: No specific imaging recommendation. Signed by Jovany Edwards on 01/12/2019 10:19 AM Past Medical History: Diagnosis Date Anxiety Arthritis Asthma Asthma Breast cancer (HCC) Cervical cancer (HCC) DJD (degenerative joint disease) DM (diabetes mellitus) (HCC) 07/29/2012 Migraine Other malignant neoplasm without specification of site Rt br ca , cervical ca Peptic ulcer disease Personality disorder (HCC) Postmenopausal Family History Problem Relation Age of Onset Heart Father [place] Hypertension Sister Heart Sister [place] Cancer Maternal Grandfather Stomach Hypertension Sister Current Outpatient Medications Medication Sig albuterol (PROVENTIL,VENTOLIN) 90 mcg/act Take 2 Puffs by inhalation EVERY FOUR HOURS. Aloe Vera Concentrate 25 MG Oral Cap Take by mouth DAILY. Indications: unknown dose ALPRAZolam 2 MG Oral Tab Take by mouth FOUR TIMES DAILY - BEFORE MEALS & amp; NIGHTLY. Indications: Feeling Anxious, 1 mg am, 2mg noon, 1 mg pm, 2 mg at hs ammonium lactate (LAC-HYDRIN) 12 % Apply externally Lotion by Topical route TWICE DAILY. Indications: 1 application BID topically aspirin 81 MG Oral Tab EC Take 1 Tab by mouth DAILY. Budesonide-Formoterol Fumarate (SYMBICORT IN) Take by inhalation TWO TIMES DAILY NEEDED. Coenzyme Q10 (COQ10) 400 MG Oral Cap Take by mouth DAILY. cyclobenzaprine (FLEXERIL) 10 MG Oral Tab Take 10 mg by mouth THREE TIMES DAILY. Dihydroergotamine Mesylate (D.H.E. 45 IJ) by Injection route NEEDED. diphenhydrAMINE HCl (BENADRYL ALLERGY PO) Take by mouth NEEDED. escitalopram (LEXAPRO) 10 MG Oral Tab Take 20 mg by mouth DAILY. fenofibrate (TRICOR) 145 MG Oral Tab Take 145 mg by mouth DAILY. Fexofenadine HCl (MUCINEX ALLERGY PO) Take by mouth NEEDED. HYDROcodone-acetaminophen (NORCO) 5-325 MG Oral Tab Take 1 Tab by mouth EVERY FOUR HOURS NEEDED. Incontinence Supply Disposable (PROTECTION PLUS CLASSIC MEDIUM) Does not apply Misc 1 Units by Does not apply route DAILY. KRILL OIL PO Take by mouth DAILY. Lactobacillus-Inulin ([facility] [employer] [facility]) Oral Chew Tab Take by mouth. Lidocaine 0.5 % Apply externally Aerosol by Apply externally route. Indications: for migraines Magnesium 400 MG Oral Tab Take 1 Tab by mouth DAILY. MEDICAL MARIJUANA Indications: CBD oil memantine (NAMENDA) 10 MG Oral Tab Take 10 mg by mouth TWICE DAILY. montelukast (SINGULAIR) 10 MG Oral Tab Take 10 mg by mouth DAILY. Multiple Vitamins-Minerals (CENTRUM SILVER ADULT 50+ PO) Take by mouth DAILY. OMEPRAZOLE PO Take 20 mg by mouth DAILY. OnabotulinumtoxinA (BOTOX IJ) by Injection route EVERY 90 DAYS. ondansetron (ZOFRAN ODT) 4 MG Oral TABLET DISPERSIBLE Take 4 mg by mouth NEEDED. Indications: Nausea and Vomiting Polyethylene Glycol 3350 (MIRALAX PO) Take by mouth. polyvinyl alcohol (ARTIFICIAL TEARS) 1.4 % Ophthalmic Solution Place 1 Drop in both eyes EVERY 7 DAYS. Polyvinyl Alcohol-Povidone (CLEAR EYES NATURAL TEARS OP) Place to the external eye. rivaroxaban (XARELTO) 20 MG Oral Tab Take 1 Tab by mouth DAILY. SUCRALFATE PO Take by mouth TWICE DAILY. Indications: 1 gm triamcinolone (KENALOG,ARISTOCORT) 0.1 % Apply externally Cream by Topical route DAILY NEEDED. No current facility-administered medications for this visit. Allergies Allergen Reactions Aimovig [Erenumab-Aooe] Unknown Reaction Austedo [Deutetrabenazine] DIRECTOR COST Reaction depression Compazine Other Tardive dyskinsia Dilaudid (No Cough) Mirabegron Other cough Namenda [Memantine] Other cough Oxycodone Other Sulfa Drugs Cross Reactors Sumatriptan Succinate Cardiac Reaction Tape [Tegaderm] Social History Socioeconomic History Marital status: Spouse name: Not on file Number of children: Not on file Years of education: Not on file Highest education level: Not on file Occupational History Not on file Social Needs Financial resource strain: Not on file Food insecurity: Worry: Not on file Inability: Not on file Transportation needs: Medical: Not on file Non-medical: Not on file Tobacco Use Smoking status: Never Smoker Smokeless tobacco: Never Used Substance and Sexual Activity Alcohol use: No Drug use: No Sexual activity: Not Currently Partners: Male Comment: hysterectomy, menopause Lifestyle Physical activity: Days per week: Not on file Minutes per session: Not on file Stress: Not on file Relationships Social connections: Talks on phone: Not on file Gets together: Not on file Attends roman catholic service: Not on file Active member of club or organization: Not on file Attends meetings of clubs or organizations: Not on file Relationship status: Not on file Intimate partner violence: Fear of current or ex partner: Not on file Emotionally abused: Not on file Physically abused: Not on file Forced sexual activity: Not on file Other Topics Concern Not on file Social History Narrative Not on file REVIEW OF SYSTEMS: Review of Systems Constitutional: Negative for chills and fever. HENT: Negative for hearing loss. Eyes: Negative for blurred vision. Respiratory: Negative for shortness of breath. Cardiovascular: Negative for chest pain. Gastrointestinal: Negative for abdominal pain. Neurological: Negative for dizziness. Objective PHYSICAL EXAM: VITALS: BP 130/78 (BP Location: Left arm, Patient Position: Sitting) | Pulse 84 | Ht 5' 4" (1.626m) | Wt 151 lb (68.5 kg) | BMI 25.92 kg/m Body mass index is 25.92 kg/m. Physical Exam Constitutional: Appearance: She is well-developed. HENT: Head: Normocephalic. Eyes: Pupils: Pupils are equal, round, and reactive to light. Neck: Musculoskeletal: Normal range of motion and neck supple. Pulmonary: Effort: Pulmonary effort is normal. Abdominal: Palpations: Abdomen is soft. Neurological: Mental Status: She is alert and oriented to person, place, and time. DIAGNOSTICS: 08/01/2019 IMPRESSIONS: 64 year old female with is history of thrombis in [place] artery and proximal aorta. Limited duplex of the upper abdomen vascularity shows a patent superior messenteric artery without evidence for increased velocities or narrowing. Prx: 234/40cms, Mid: 143/37cms, Dst 188/37cms There is no evidence for obvious flow in the celiac artery. There is no evidence for aortic aneurysm, patency is visualizeds, no obvious evidence for thrombis is noted, though exam is somewhat limited due to overlying bowel gas. The spenic artery or hepatic artery are not visualized due to stomach content and bowel gas. There is no previous exam available for comparison. ASSESSMENT / IMPRESSION: Barbara Sorto is a 63-y.o. female seen in 6 month follow up thrombus in anterior aspect of upper aorta with occluded celiac artery and common hepatic artery. Patient has been treated with Xarelto 20 mg daily for 6 months. Duplex today indicates no change in celiac artery thrombus, no abdominal aneurysmnoted. ICD-9-CM ICD-10-CM 1. 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 Umana. Please refer to his note for further details. Patient continues to remain asymptomatic. Multiple medical issues, follow up with PCP to manage other medical issues. May stop taking the Xarelto at this time. Script sent for Plavix. Recommend taking Plavix 75 mg and ASA 81 mg daily, most like for lifetime anticoagulation. Patient's questions answered. Patient agrees with treatment plan. Follow up with Vascular Surgery in 6 months for abdominal duplex or sooner with problems. Author: Jack Rosas NP 08/01/2019 14:34 Associated attestation - Natividad Umana MD - 08/08/2019 1:55 PM [facility] Supervising Documentation Date of Service: [id number] B# [id number] I saw and evaluated the patient. Discussed with resident and agree with the resident's findings andplan as documented in the resident's note. Additional Comments: Patient remains asymptomatic; no abdominal pain or weight loss. Mesenteric ultrasound suggests known occlusion of celiac artery. Abdomen soft, non-distended, non tender. Can stop xarelto. F/u in 6 months. Natividad Umana MD Supervising Physiciandocumented in this encounter Plan of Treatment Date Type Specialty Care Team Description 02/06/2020 Ancillary Procedure Radiology 02/06/2020 Ancillary Procedure Radiology 02/06/2020 Office Visit Vascular Surgery Natividad Umana MD [address] [place] [place] [address] [phone] Name Type Priority Associated Diagnoses Order Schedule VL ABDOMEN DUPLEX Imaging Routine Obstruction of celiac Expected: 2018, AORTA GRAFT LIMITED artery Expires: 09/29/2020 Health Maintenance Due Date Last Done Comments Diabetic Eye Exam 1955 HEMOGLOBIN A1C 1955 MEDICARE ANNUAL WELLNESS 1955 VISIT URINE MICROALBUMIN 1955 DEPRESSION SCREENING 1965 FOOT EXAM 1971 LIPID DISORDER SCREENING 1971 ZOSTER IMMUNIZATION SERIES 2003 (1 of 2) MAMMOGRAM (SCREENING) 08/25/2013 08/25/2012, 08/25/2012, 08/24/2011, Additional history exists FALL RISK ASSESSMENT 2018 OSTEOPOROSIS SCREENING 2018 PNEUMOCOCCAL 65+YRS (1 of 2 2018 - PCV13) COLONOSCOPY SCREENING 09/20/2018 09/20/2008 INFLUENZA VACCINE (#1) 2019 HPV IMMUNIZATION SERIES Aged Out No longer eligible based on patient's age to complete this topic MENINGOCOCCAL VACCINE IMM Aged Out No longer eligible based on patient's age to complete this topic documented as of this encounter Results Not on filedocumented in this encounter Visit Diagnoses Diagnosis Obstruction of celiac artery - Primary Embolism and thrombosis of unspecified artery documented in this encounter Insurance Payer Benefit Plan / Subscriber ID Effective Dates Phone Address Type Group [facility] xxxxxxxxxxx 2016-Present [employer] [place] xxxxxxxx 2019-Present [place] Guarantor Name Account Type Relation to Date of Phone Billing Patient Address Barbara Sorto Personal/Family 1955 [id number] [facility] (Home) [address] [place] (Work) [id number] documented as of this encounter
--- NOTE | 2019-09-20 22:24 | ED ---
HPI Chest Pain - HPI Summary HPI Summary: Pt is a 64 y/o F presenting to the ED brought in by EMS for rib pain. She states she had squeezing on the R side of her ribs for about 1.5 hours today, then it began to hurt on her L side as well. She has also been somewhat dizzy, experienced epigastric heaviness, and notes chronic SOB. The last time she experienced similar pain, she was found to have blood clots, and shes since been on blood thinners. She denies diaphoresis, fever, or nausea. - History of Current Complaint Chief Complaint: EDChestWallPain Time Seen by Provider: 09/20/19 22:08 Hx Obtained From: Patient Onset/Duration: Started Hours Ago, Still Present Timing: Constant, Lasting Hours Initial Severity: Moderate Current Severity: Severe Pain Intensity: 9 Pain Scale Used: 0-10 Numeric Chest Pain Location: Left Lateral, Right Lateral Chest Pain Radiates: No Character: Pressure/Squeezing Aggravating Factor(s): Nothing Alleviating Factor(s): Nothing Associated Signs and Symptoms: Positive: Chest Pain, Dizziness, Shortness of Breath - chronic, Abdominal Pain. Negative: Fever, Diaphoresis, Nausea - Additional Pertinent History Primary Care Physician: [id number] - Allergy/Home Medications Allergies/Adverse Reactions: Allergies Allergy/AdvReac Type Severity Reaction Status Date / Time deutetrabenazine Allergy See Comment Verified 09/20/19 21:59 [From Austedo] erenumab-aooe Allergy Unknown Verified 09/20/19 21:59 [From Aimovig Autoinjector] Reaction Details fremanezumab-vfrm Allergy Constipatio Verified 09/20/19 21:59 [From Ajovy] n hydromorphone [From Dilaudid] Allergy Vomiting Verified 09/20/19 21:59 Iodinated Contrast Media Allergy Difficulty Verified 09/20/19 21:59 Breathing memantine [From Namenda] Allergy Coughing Verified 09/20/19 21:59 oxycodone Allergy Vomiting Verified 09/20/19 21:59 prochlorperazine Allergy See Comment Verified 09/20/19 21:59 [From Compazine] Sulfa (Sulfonamide Allergy Rash And Verified 09/20/19 21:59 Antibiotics) Itching sumatriptan [From Imitrex] Allergy See Comment Verified 09/20/19 21:59 Home Medications: Home Medications Pantoprazole TAB * 40 mg PO DAILY 09/20/19 [History Confirmed 09/20/19] Plavix TAB* 75 mg PO DAILY 09/20/19 [History Confirmed 09/20/19] PMH/Surg Hx/FS Hx/Imm Hx Previously Healthy: Yes Endocrine/Hematology History: Reports: Hx Anemia - when younger Denies: Hx Diabetes Cardiovascular History: Reports: Hx Hypercholesterolemia, Other Cardiovascular Problems/Disorders - 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 Denies: Hx Coronary Artery Disease, Hx Hypertension, Hx Pacemaker/ICD Respiratory History: Reports: Hx Asthma, Hx Chronic Obstructive Pulmonary Disease (COPD) GI History: Reports: Hx Diverticulosis - diverticulitis, Hx Gastroesophageal Reflux Disease, Other GI Disorders - Chroninc constipation History: Reports: Hx Kidney Infection Musculoskeletal History: Reports: Hx Arthritis, Hx Back Problems, Hx Fibromyalgia, Other Musculoskeletal History - Complex pain syndrome Sensory History: Reports: Hx Contacts or Glasses - glasses Denies: Hx Hearing Aid Opthamlomology History: Reports: Hx Contacts or Glasses - glasses Neurological History: Reports: Hx Migraine, Other Neuro Impairments/Disorders - 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 Denies: Hx CVA Psychiatric History: Reports: Hx Anxiety - with panic attacks, Hx Depression, Hx Panic Disorder, Hx Post Traumatic Stress Disorder, Hx Inpatient Treatment, Hx Community Mental Health Tx, Other Psychiatric Issues/Disorders - multiple personality disorder Denies: Hx Eating Disorder, Hx of Violent Episodes Against Others - Cancer History Cancer Type, Location and Year: Breast cancer right breast Hx Chemotherapy: Yes - 7816-5313 Hx Radiation Therapy: Yes - 5746-1984 - Surgical History Surgery Procedure, Year, and Place: Jaw surgery (1969, 1972, 1990), Hysterectomy (1987), Spinal fusion C3-7, L4-S1, Sinus (2005), Bladder tvt (2001 , 2009, 2016), ORIF right ankle (2009), BREAST BIOPSY Infectious Disease History: No Infectious Disease History: Reports: Hx of Known/Suspected MRSA - pt stated about 1 year ago, Hx Shingles Denies: Traveled Outside the [place] in Last 30 Days - Family History Known Family History: Positive: Unknown - Patient is a poor historian, reports mother might've had schizophrenia - Social History Alcohol Use: None Alcohol Amount: 1 glass wine Hx Substance Use: No Substance Use Type: Reports: None Hx Tobacco Use: No Smoking Status (MU): Never Smoked Tobacco Review of Systems - ROS Summary Review of Systems Summary: Home Medications Medication Instructions Recorded Confirmed Type Albuterol HFA INHALER* [Ventolin 2 puff INH Q4H PRN 09/23/18 07/09/19 History HFA Inhaler*] Aloe Vera 1 tab PO DAILY 09/23/18 07/09/19 History Ammonium Lactate 12% [Lac-Hydrin 1 applic TOPICAL BID PRN 09/23/18 07/09/19 History 12 %] Krill/Om-3/Dha/Epa/Phospho/Ast 1 cap PO DAILY 09/23/18 07/09/19 History [Krill Oil 500 mg Softgel] Omeprazole CAP (NF) [Prilosec CAP* 20 mg PO DAILY 09/23/18 07/09/19 History 20 MG] Ondansetron ODT TAB* [Zofran 4 MG 4 mg PO TID PRN 09/23/18 07/09/19 History Odt TAB*] Triamcinolone 0.1% CREAM (NF) 1 applic TOPICAL DAILY PRN 09/23/18 07/09/19 History [Kenalog 0.1% Cream (NF)] Budesonide/Formote 160/4.5(NF) 1 puff INH DAILY 01/12/19 07/09/19 History [Symbicort 160/4.5 (NF)] Aspirin 81 mg CHEW TAB* 81 mg PO DAILY 02/01/19 07/09/19 History Lidocaine 1 mg INTRANASAL DAILY PRN 02/01/19 07/09/19 History Polyethylene Glycol 3350* 17 gm PO DAILY PRN 02/01/19 07/09/19 History [Miralax*] ALPRAZolam [Alprazolam] 1 mg PO TID #90 tablet MDD 3 mg 02/06/19 07/09/19 Rx Cyclobenzaprine TAB* [Flexeril 10 10 mg PO Q8H PRN tab 02/06/19 07/09/19 Rx MG TAB*] Dihydroergotamine (D.H.E.)* 1 mg IM DAILY PRN amp 02/06/19 07/09/19 Rx [D.h.e. 45*] Escitalopram * [Lexapro *] 20 mg PO DAILY tablet 02/06/19 07/09/19 Rx Fenofibrate(NF) [Tricor(NF)] 145 mg PO DAILY tab 02/06/19 07/09/19 Rx Magnesium Oxide TAB* [MagOx 400 400 mg PO DAILY tab 02/06/19 07/09/19 Rx TAB*] Montelukast Sodium TAB* [Singulair 10 mg PO BEDTIME tab 02/06/19 07/09/19 Rx 10 MG TAB*] Sucralfate TAB* [Carafate*] 1 gm PO BID tab 02/06/19 07/09/19 Rx Rivaroxaban TAB(*) [Xarelto 20 mg] 20 mg PO DAILY 07/10/19 07/10/19 History Negative: Fever, Skin Diaphoresis Positive: Chest Pain Positive: Shortness Of Breath - chronic Positive: Abdominal Pain. Negative: Nausea Neurological: Other - dizziness All Other Systems Reviewed And Are Negative: Yes Physical Exam - Summary Physical Exam Summary: General: Well-developed, Well-nourished elderly female. No acute distress. HEENT: Normocephalic, Atraumatic. Eyes: Conjuctiva normal, PERRL. Oropharynx: Clear, mucous membranes moist, (-) exudates. Neck: Soft, FROM, (-) lymphadenopathy, (-) thyromegaly, (-) JVD. Cardiovascular: Normal sinus rhythm, (-) murmur. Lungs: Clear to auscultation bilaterally (-) wheezes, (-) rales, (-) rhonchi. Abdomen: Soft, epigastric heaviness, non-distended, (-) organomegaly, normal bowel sounds. Back: (-) CVA tenderness Extremities: No edema. Dyskinesia. Skin: Warm, dry, (-) rash. Neuro: Alert and oriented x3, no focal deficits. Psychiatric: Mood normal, affect normal. Triage Information Reviewed: Yes Vital Signs On Initial Exam: Initial Vitals Temp Pulse Resp BP Pulse Ox 97.7 F 73 18 165/101 96 09/20/19 21:55 09/20/19 21:55 09/20/19 21:55 09/20/19 21:55 09/20/19 21:55 Vital Signs Reviewed: Yes Procedures - Sedation Patient Received Moderate/Deep Sedation with Procedure: No Diagnostics - Vital Signs Vital Signs Temp Pulse Resp BP Pulse Ox 09/20/19 21:55 97.7 F 73 18 165/101 96 - Laboratory Result Diagrams: 09/21/19 00:04 09/21/19 00:04 Lab Statement: Any lab studies that have been ordered have been reviewed, and results considered in the medical decision making process. - Radiology CXR Radiology Interpretation Completed By: ED Physician Summary of Radiographic Findings: No pleural effusion. No infiltrate. Pending official radiology report. - EKG 2155 Cardiac Rate: NL - 70bpm EKG Rhythm: Sinus Rhythm ST Segment: Normal Ectopy: None Summary of EKG Findings: EKG at 2156 reveals normal sinus rhythm with rate of 70 BPM, no acute changes, no ischemic changes. This EKG was reviewed and interpreted by Dr. Armstrong. Re-Evaluation - Re-Evaluation 1st re-eval Re-Evaluation Time: 00:48 Change: Improved Comment: I have discussed results with the patient and chest pain is resolved. Discussed symptoms that warrant immediate return to ED. Chest Pain Course/Dx - Course Course Of Treatment: 64 y/o F presents with bilateral rib pain and then epigastric pain. Pain described as squeezing. Started having epigastric symptoms around 1600. No fevers or cough, no vomiting or diarrhea. Pt had mild epigastric tenderness on examination. Her physician recently stopped her Prilosec. In the ED course, the pt received GI cocktail. Workup demonstrates no significant abnormalities. Patient had relief of her symptoms with Toradol. Patient will be d/jonny to home. F/u with PCP to discuss Prilosec. F/u sooner w/ worsening symptoms. - Diagnoses Provider Diagnoses: Chest pain, Epigastric pain Discharge ED - Sign-Out/Discharge Documenting (check all that apply): Patient Departure - Discharge Plan Condition: Stable Disposition: HOME Patient Education Materials: Chest Pain (ED), Epigastric Pain (ED) Referrals: Melia Marin MD [Primary Care Provider] - Additional Instructions: Please follow up with your primary care physician within three days. Please return to ED for any new or worsening symptoms. - Billing Disposition and Condition Condition: STABLE Disposition: Home - Attestation Statements Document Initiated by Scribe: Yes Documenting Scribe: Emily Sanchez Provider For Whom Scribe is Documenting (Include Credential): Venecia Armstrong MD. Scribe Attestation: I, Emily Sanchez, scribed for Venecia Armstrong MD. on 09/21/19 at 0223. Scribe Documentation Reviewed: Yes Provider Attestation: The documentation as recorded by the scribe, Emily Sanchez accurately reflects the service I personally performed and the decisions made by me, Venecia Armstrong MD. Status of Scribe Document: Viewed
[2019-09-20] MEDS ORDERED: Al Hydrox/Mg Hydrox/Simet LIQ* 30 ML UDC PO ONE (22:51)
[2019-09-20] MEDS ORDERED: Lidocaine 2% VISCOUS* 15 ML UDC PO ONE (22:51)
[2019-09-20 23:34] LABS: Urine Appearance Clear; Urine Bilirubin Negative (Negative); Urine Blood Negative (Negative); Urine Color Yellow; Urine Glucose Negative (Negative); Urine Ketones Negative (Negative); Urine Nitrite Negative (Negative); Urine Protein Negative (Negative); Urine Specific Gravity 1.004 (1.010-1.030); Urine Urobilinogen Negative (Negative)
[2019-09-20 23:38] LABS: Urine Bacteria Absent (Absent); Urine Red Blood Cell Trace(0-2/hpf) (Absent); Urine Squamous Epithelial Cell Present (Absent); Urine White Blood Cell Trace(0-5/hpf) (Absent)
[2019-09-21 00:14] LABS: ABS Eosinophils 0.2 10^3/ul (0-0.6); ABS Monocytes 0.4 10^3/ul (0-0.8); ABS Neutrophils 2.6 10^3/ul (1.5-7.7); Eosinophil % 5.4 %; Hematocrit 36 % (35-47); Hemoglobin 11.8 g/dL (12.0-16.0); Lymphocyte % 23.2 %; Mean Corpuscular HGB Conc 33 g/dL (31-36); Mean Corpuscular Hemoglobin 29 pg (27-31); Mean Corpuscular Volume 88 fL (80-97); Mean Platelet Volume 6.7 fL (7.4-10.4); Nucleated Red Blood Cells % 0.5; Platelet Count 343 10^3/uL (150-450); Red Blood Count 4.05 10^6 /uL (3.70-4.87); Red Cell Distribution Width 14 % (10-15); White Blood Count 4.2 10^3/uL (3.5-10.8)
[2019-09-21 00:32] LABS: Albumin 4.1 g/dL (3.2-5.2); Albumin/Globulin Ratio 1.7 (1-3); BUN/Creatinine Ratio 17.3 (8-20); C Reactive Protein 5.22 mg/L (<8.01); Calcium 9.2 mg/dL (8.6-10.3); EGFR African American 85.6 (>60); EGFR Non-African American 70.7 (>60); Globulin 2.4 g/dL (2-4); Total Bilirubin 0.2 mg/dL (0.2-1.0); Total Protein 6.5 g/dL (6.4-8.9)
[2019-09-21 02:04] VITALS: BP 145/89
== END 2019-09-21 01:09 | disposition home or self-care (01) ==
LOC: ED 21:51
DX: R07.9 Chest pain, unspecified (principal); R10.13 Epigastric pain; R42 Dizziness and giddiness; R06.02 Shortness of breath; Z79.899 Other long term (current) drug therapy; E78.00 Pure hypercholesterolemia, unspecified; Z85.3 Personal history of malignant neoplasm of breast
CPT/HCPCS: 36415; 71045; 80053; 81003; 81015; 83605; 83690; 85025; 85610; 86140; 87086; 93005; 99284; A9270-GY

== ENCOUNTER 2019-10-24 11:58 | Emergency (ER) | payer MEDICARE, OTHER ==
--- OUTSIDE RECORDS SUMMARY | 2019-10-24 13:04 | XMS REPORT | Continuity of Care Document ---
:1955 External Reference #:[id number] Author Name Charles Quiñones M.D. (transmitted by agent of provider Maritza Clements) Address [address], [place] [address] Care Team Providers Name Role Phone Melia Marin MD - Internal Care Team Information Material Requirements Planning Manager Medicine Problems Active Problems Provider Date Refractory migraine without aura Charles Quiñones M.D. Onset: 10/02/2014 Localized, primary osteoarthritis Evans Vuong M.D. Onset: 06/21/2015 Social History Type Date Description Comments Sex Unknown ETOH Use Denies alcohol use Tobacco Use Start: Unknown Patient has never smoked Recreational Drug Use Denies Drug Use Smoking Status Reviewed: 09/27/19 Patient has never smoked Exercise Type/Frequency Exercises rarely Allergies, Adverse Reactions, Alerts Active Allergies Reaction Severity Comments Date Sulfa Antibiotics 03/21/2013 Dilaudid 03/21/2013 Oxycodone 03/21/2013 Imitrex 03/21/2013 Bentyl 09/19/2013 Namenda Cough 12/19/2013 Medications Active Medications SIG Qnty Indications Ordering Date Provider Lidocaine HCL Instill 1 Scio 50ml Constantino 4% Solution In Each Nostril Vani Ortega 9 as Needed For Migraine Up To Twice A Day Dihydroergotamine inject one 10units Charles Leggett Mesylate milliliters every Vani Quiñones 2 1mg/ml Solution 8 hours as needed for migraine. maximum daily dose = 3 mg max weekly dose is 6 mg Clopidogrel Bisulfate 1 by mouth every Unknown 75mg day 0 Tablets Pantoprazole Sodium 1 by mouth every Unknown 40mg day [address] Miralax daily Unknown 3350NF Powder 0 Ondansetron HCL one by mouth Unknown 4mg Tablets every 8 hours as 0 needed for nausea Benadryl Allergy as needed Unknown 25mg 0 Tablets Sucralfate take one tablet Unknown 1gm Tablets by mouth two 0 times a day Aspirin 81 1 by mouth every Unknown 81mg Tablets DR day 0 Symbicort 1 puff a day Unknown 160-4.5mcg/Act 0 Aerosol Aloe Vera Concentrate one cap daily Unknown 25mg 0 Capsules Magnesium take one tablet Unknown 500mg Tablets twice a day by 0 mouth Krill Oil 1 cap at bedtime Unknown 350mg Capsules 0 Centrum Silver 50+Women once daily Unknown 0 50+Women Tablets Co Q-10 Plus daily Unknown 100-20mg 0 Capsules Mucinex 2 by mouth twice Unknown 600mg Tablets ER a day as needed 0 12HR Triaminolone Acetone prn Unknown Cream .1% 0 Ammonium Lactate use twice a day Unknown 12% Cream 0 Albuterol Sulfate 1 application Unknown every 4 hours as 0 (2.5mg/3ML) 0.083% needed Nebulizer Lexapro 1 tab by mouth Unknown 20mg Tablets every day 0 Cyclobenzaprine HCL 1 tab at 1 am, 1 Unknown 10mg tab at noon, 1 0 Tablets tab at 4 pm, 1 tab at bedtime Montelukast Sodium 1 by mouth every Unknown 10mg night 0 Tablets Fenofibrate Micronized 1 by mouth every Unknown day 0 145mg Capsules Xanax 1/2 tab am, 1/2 Unknown 2mg Tablets tab noon, 1 tab 0 at bedtime History Medications Lidocaine HCL 1 spray each 20units G43.019 Charles Leggett 06/27/2019 - 4% nostril as needed Vani Quiñones 08/14/2019 Solution migraine max twice a day Medications Administered in Office Medication SIG Qnty Indications Ordering Provider Date Synvisc Or Synvisc-One Evans Vuong M.D. 2019 Injection 1 MG Injection Synvisc Or Synvisc-One Evans Vuong M.D. 2019 Injection 1 MG Injection Synvisc Or Synvisc-One [...] Evans Vuong M.D. 10/23/2015 Injection Injection Onabotulinumtoxin A, Charles Quiñones M.D. 10/16/2015 1 Unit Injection Injection Onabotulinumtoxin A, Lea Olu, VP OF PRODUCT 07/04/2015 1 Unit Injection Depomedrol 80MG Evans Vuong M.D. 06/21/2015 Injection Injection Onabotulinumtoxin A, Lea Olu, VP OF PRODUCT 04/03/2015 1 Unit Injection Injection Onabotulinumtoxin A, Lea Raines, VP OF PRODUCT 01/02/2015 1 Unit Injection Injection Onabotulinumtoxin A, Charles Quiñones M.D. 10/02/2014 1 Unit Injection Injection Onabotulinumtoxin A, Charles Quiñones M.D. 07/03/2014 1 Unit Injection Injection Onabotulinumtoxin Bello, Charles Quiñones M.D. 03/27/2014 1 Unit Injection Injection Onabotulinumtoxin Bello, Charles Quiñones M.D. 12/19/2013 1 Unit Injection Injection Onabotulinumtoxin A, Charles Quiñones M.D. 09/19/2013 1 Unit Injection [...] M.D. 05/31/2012 1 Unit Injection Injection Onabotulinumtoxin Charles Monsalve M.D. 05/31/2012 1 Unit Injection Immunizations Description No Information Available Vital Signs Date Vital Result Comment 09/27/2019 2:45pm Height 64 inches 5'4" Weight 150.25 lb Heart Rate 88 /min BP Systolic Sitting 132 mmHg BP Diastolic Sitting 86 mmHg Respiratory Rate 24 /min BMI (Body Mass Index) 25.8 kg/m2 06/27/2019 2:31pm Height 64 inches 5'4" Weight 149.00 lb Heart Rate 76 /min BP Systolic Sitting 138 mmHg BP Diastolic Sitting 84 mmHg Respiratory Rate 18 /min BMI (Body Mass Index) 25.6 kg/m2 Results Description No Information Available Procedures Date Code Description Status 07/10/2019 39954 ECHO Transthorasic Realtime 2D W Doppler & Color Flow Hosp Completed 2019 28419 Inject/Drain Joint/Bursa Major W/O US Completed 05/10/2019 33869 Inject/Drain Joint/Bursa Major W/O US Completed 04/26/201961133 Inject/Drain Joint/Bursa Major W/O US Completed Medical Devices Description No Information Available Encounters Type Date Location Provider Dx Diagnosis Office Visit 07/11/2019 [facility] Charles Leggett R20.0 Anesthesia of 7:00a Vani Quiñones skin M48.9 Spondylopathy, unspecified Z98.1 Arthrodesis status Office Visit 07/11/2019 [facility] M54.12 Radiculopathy, 10:47a Assoc,ton Louis MD cervical region [facility] G43.909 Migraine, unsp, not intractable, without status migrainosus M50.30 Other cervical disc degeneration, unsp cervical region I74.10 Embolism and thrombosis of unspecified parts of aorta C50.919 Malignant neoplasm of unsp site of unspecified female breast G89.4 Chronic pain syndrome F41.0 Panic disorder [episodic paroxysmal anxiety] Office Visit 07/10/2019 [facility] Charles Leggett R20.0 Anesthesia of 7:00a Lou Quiñones M.D. skin M48.9 Spondylopathy, unspecified Z98.1 Arthrodesis status Office Visit 07/09/2019 10:42a [place] Bev Calderon J44.9 Chronic Assoc,ton Freeman M.D. 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 without status migrainosus G24.01 Drug induced subacute dyskinesia M54.16 Radiculopathy, lumbar region M54.12 Radiculopathy, cervical region Office Visit 04/26/2019 [place] Evans M17.0 Bilateral primary 1:00p Orthopedics at Vani Vuong osteoarthritis of [place] knee M67.472 Ganglion, left ankle and foot Assessments Date Code Description Provider 09/27/2019 G89.4 Chronic pain syndrome Charles Quiñones M.D. 09/27/2019 G43.019 Migraine without aura, intractable, without Charles Quiñones M.D. status migrainosus 09/27/2019 G24.01 Drug induced subacute dyskinesia Charles Quiñones M.D. 07/11/2019 R20.0 Anesthesia of skin Charles Quiñones M.D. 07/11/2019 M48.9 Spondylopathy, unspecified Charles Quiñones M.D. 07/11/2019 M54.12 Radiculopathy, cervical region Jennifer Louis MD 07/11/2019 Z98.1 Arthrodesis status Charles Quiñones M.D. 07/11/2019 G43.909 Migraine, unspecified, not intractable, Jennifer Louis MD without status migrainosus 07/11/2019 M50.30 Other cervical disc degeneration, Jennifer Louis MD unspecified cervical region 07/11/2019 I74.10 Embolism and thrombosis of unspecified Jennifer Louis MD parts of aorta 07/11/2019 C50.919 Malignant neoplasm of unspecified site of Jennifer Louis MD unspecified female breast 07/11/2019 G89.4 Chronic pain syndrome Jennifer Louis MD 07/11/2019 F41.0 Panic disorder [episodic paroxysmal Jennifer Louis MD anxiety] 07/10/2019 R20.0 Anesthesia of skin Charles Quiñones M.D. 07/10/2019 M48.9 Spondylopathy, unspecified Charles Quiñones M.D. 07/10/2019 G45.9 Transient cerebral ischemic attack, Jennifer Louis MD unspecified 07/10/2019 Z98.1 Arthrodesis status Charles Quiñones M.D. 07/10/2019 G45.9 Transient cerebral ischemic attack, Shukri Parks M.D. unspecified 07/10/2019 I74.10 Embolism and thrombosis of unspecified Jennifer Louis MD parts of aorta 07/10/2019 C50.919 Malignant neoplasm of unspecified site of Jennifer Louis MD unspecified female breast 07/09/2019 J44.9 Chronic obstructive pulmonary disease, Kvng Freeman M.D. unspecified 07/09/2019 I74.09 Other arterial embolism and thrombosis of Kvng Freeman M.D. abdominal aorta 06/27/2019 G43.019 Migraine without aura, intractable, without Charles Quiñones M.D. status migrainos 06/27/2019 G24.01 Drug induced subacute dyskinesia Charles Quiñones M.D. 06/27/2019 M54.16 Radiculopathy, lumbar region Charles Quiñones M.D. 06/27/2019 M54.12 Radiculopathy, cervical region Charles Quiñones M.D. 2019 M17.0 Bilateral primary osteoarthritis of knee Evans Vuong M.D. 05/10/2019 M17.0 Bilateral primary osteoarthritis of knee Evans Vuong M.D. 04/26/2019 M17.0 Bilateral primary osteoarthritis of knee Evans Vuong M.D. 04/26/2019 M67.472 Ganglion, left ankle and foot Evans Vuong M.D. Plan of Treatment Future Appointment(s):02/14/2020 2:45 pm - Charles Qu[facility] at [facility]/27/2019 - Charles Quiñones M.D.G89.4 Chronic pain pyhvmcadD83.019 Migraine without aura, intractable, without status migrainosusFollow up:4 ujvaxaH85.01 Drug induced subacute dyskinesia Functional Status Description No Information Available Mental Status Description No Information Available Referrals Description No Information Available
--- NOTE | 2019-10-24 14:36 | ED ---
Throat Pain/Nasal Congestion - HPI Summary HPI Summary: 64 year old female presents emergency department today complaining of left jaw pain. Patient believes her jaw is dislocated. Patient's symptoms began approximately 5 days ago when she went to [place] emergency Department and was given steroids. Patient is complaining of left-sided jaw pain, sore throat, feeling like "golf ball is in my throat", pain with palpation of the left inferior jaw and neck patient states she is unable to open her jaw all the way due to the pain. Patient states she has trouble swallowing and eating due to the pain. Patient otherwise feels well and denies chest pain, fever, abdominal pain, shortness of breath, rash, pain with urination. Surgical history and family history is noncontributory. - History of Current Complaint Chief Complaint: EDDentalPain Time Seen by Provider: 10/24/19 14:11 Hx Obtained From: Patient Onset/Duration: Gradual Onset, Lasting Days Severity: Moderate Cough: None - Allergies/Home Medications Allergies/Adverse Reactions: Allergies Allergy/AdvReac Type Severity Reaction Status Date / Time deutetrabenazine Allergy See Comment Verified 09/20/19 21:59 [From Austedo] erenumab-aooe Allergy Unknown Verified 09/20/19 21:59 [From Aimovig Autoinjector] Reaction Details fremanezumab-vfrm Allergy Constipatio Verified 09/20/19 21:59 [From Ajovy] n hydromorphone [From Dilaudid] Allergy Vomiting Verified 09/20/19 21:59 Iodinated Contrast Media Allergy Difficulty Verified 09/20/19 21:59 Breathing memantine [From Namenda] Allergy Coughing Verified 09/20/19 21:59 oxycodone Allergy Vomiting Verified 09/20/19 21:59 prochlorperazine Allergy See Comment Verified 09/20/19 21:59 [From Compazine] Sulfa (Sulfonamide Allergy Rash And Verified 09/20/19 21:59 Antibiotics) Itching sumatriptan [From Imitrex] Allergy See Comment Verified 09/20/19 21:59 PMH/Surg Hx/FS Hx/Imm Hx Endocrine/Hematology History: Reports: Hx Anemia - when younger Denies: Hx Diabetes Cardiovascular History: Reports: Hx Hypercholesterolemia, Other Cardiovascular Problems/Disorders - 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 Denies: Hx Coronary Artery Disease, Hx Hypertension, Hx Pacemaker/ICD Respiratory History: Reports: Hx Asthma, Hx Chronic Obstructive Pulmonary Disease (COPD) GI History: Reports: Hx Diverticulosis - diverticulitis, Hx Gastroesophageal Reflux Disease, Other GI Disorders - Chroninc constipation History: Reports: Hx Kidney Infection Musculoskeletal History: Reports: Hx Arthritis, Hx Back Problems, Hx Fibromyalgia, Other Musculoskeletal History - Complex pain syndrome Sensory History: Reports: Hx Contacts or Glasses - glasses Denies: Hx Hearing Aid Opthamlomology History: Reports: Hx Contacts or Glasses - glasses Neurological History: Reports: Hx Migraine, Other Neuro Impairments/Disorders - 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 Denies: Hx CVA Psychiatric History: Reports: Hx Anxiety - with panic attacks, Hx Depression, Hx Panic Disorder, Hx Post Traumatic Stress Disorder, Hx Inpatient Treatment, Hx Community Mental Health Tx, Other Psychiatric Issues/Disorders - multiple personality disorder Denies: Hx Eating Disorder, Hx of Violent Episodes Against Others - Cancer History Cancer Type, Location and Year: Breast cancer right breast Hx Chemotherapy: Yes - [id number] Hx Radiation Therapy: Yes - [id number] - Surgical History Surgery Procedure, Year, and Place: Jaw surgery (1969, 1972, 1990), Hysterectomy (1987), Spinal fusion C3-7, L4-S1, Sinus (2005), Bladder tvt (2001 , 2009, 2016), ORIF right ankle (2009), BREAST BIOPSY Infectious Disease History: No Infectious Disease History: Reports: Hx of Known/Suspected MRSA - pt stated about 1 year ago, Hx Shingles Denies: Traveled Outside the [place] in Last 30 Days - Family History Known Family History: Positive: Unknown - Patient is a poor historian, reports mother might've had schizophrenia - Social History Alcohol Use: None Alcohol Amount: 1 glass wine Hx Substance Use: No Substance Use Type: Reports: None Hx Tobacco Use: No Smoking Status (MU): Never Smoked Tobacco Review of Systems Constitutional: Negative Eyes: Negative ENT: Negative Cardiovascular: Negative Positive: Cough. Negative: Shortness Of Breath Gastrointestinal: Negative Genitourinary: Negative Musculoskeletal: Negative Skin: Negative Neurological: Negative Psychological: Normal All Other Systems Reviewed And Are Negative: Yes Physical Exam - Summary Physical Exam Summary: Patient is in no acute distress. Patient endorses tenderness to palpation in the left temporomandibular joint. There is no crepitus noted with opening of the jaw with palpation of the temporomandibular joint. Patient is able to open and close her mouth however there is minor trismus noted. Patient slurs due to not having her top plate in so it this makes it difficult to assess a muffled voice. Patient has tenderness to palpation of the neck to the left lateral aspect. Triage Information Reviewed: Yes Vital Signs On Initial Exam: Initial Vitals Temp Pulse Resp BP Pulse Ox 98.1 F 90 18 155/98 97 10/24/19 12:01 10/24/19 12:01 10/24/19 12:10/24/19 12:10/24/19 12:01 Vital Signs Reviewed: Yes Appearance: Positive: Well-Appearing, No Pain Distress, Well-Nourished Skin: Positive: Warm, Skin Color Reflects Adequate Perfusion Eyes: Positive: EOMI, MILKA ENT: Positive: Hearing grossly normal Respiratory/Lung Sounds: Positive: Clear to Auscultation, Breath Sounds Present Cardiovascular: Positive: RRR, S1, S2 Musculoskeletal: Positive: Strength/ROM Intact Neurological: Positive: Sensory/Motor Intact, Alert, Oriented to Person Place, Time, Normal Gait, Facial Symmetry, Speech Normal Psychiatric: Positive: Normal, Affect/Mood Appropriate AVPU Assessment: Alert Procedures - Sedation Patient Received Moderate/Deep Sedation with Procedure: No Diagnostics - Vital Signs Vital Signs Temp Pulse Resp BP Pulse Ox 10/24/19 12:01 98.1 F 90 18 155/98 97 - Laboratory Result Diagrams: 10/24/19 14:39 10/24/19 14:39 Lab Statement: Any lab studies that have been ordered have been reviewed, and results considered in the medical decision making process. EENT Course/Dx - Course Course Of Treatment: Patient was evaluated in the emergency department today for jaw pain. Blood was noted. Lab for studies were done to investigate possible infectious pathology such as peritonsillar abscess, pharyngeal abscess , Al's angina due to possibly muffled voice and complains of throat pain and neck pain. Laboratory studies returned showing findings with no evidence of leukocytosis or significant electrolyte abnormality. ct of the soft tissue of the neck was done which showed no evidence of abscess. There is evidence of lateral subluxation of the left mandibular condyle. Patient diagnosed with subluxation left mandible. Patient is to have soft food diet until she can follow up with her dentist for further evaluation in 2 days with her scheduled appointment. Patient discharged with outpatient follow-up. - Differential Diagnoses Differential Diagnoses: Cellulitis, Dental Abscess, Dental Caries, Al's Angina, Tonsilitis, TMJ Syndrome - Diagnoses Provider Diagnoses: Subluxation of jaw, acquired Discharge ED - Sign-Out/Discharge Documenting (check all that apply): Patient Departure - Discharge Plan Condition: Stable Disposition: HOME Patient Education Materials: Temporomandibular Disorder (ED) Referrals: Melia Marin MD [Primary Care Provider] - 2 Days Additional Instructions: You were seen in the emergency department today due to jaw pain. Imaging was done which showed no evidence of fracture, dislocation or abscess. You appear to have a subluxation of the left mandible. This needs to be addressed by dentistry. Please mention this and have this evaluated during your dental appointment in 2 days. Until then please have a soft food diet. Please return to the emergency department immediately if you develop any new or worsening symptoms. - Billing Disposition and Condition Condition: STABLE Disposition: Home
[2019-10-24 14:52] LABS: ABS Lymphocytes 0.4 10^3/ul (1.0-4.8); ABS Monocytes 0.3 10^3/ul (0-0.8); ABS Neutrophils 8.1 10^3/ul (1.5-7.7); Eosinophil % 0.1 %; Hematocrit 35 % (35-47); Lymphocyte % 4.6 %; Mean Corpuscular HGB Conc 34 g/dL (31-36); Mean Corpuscular Hemoglobin 30 pg (27-31); Mean Corpuscular Volume 87 fL (80-97); Mean Platelet Volume 6.8 fL (7.4-10.4); Platelet Count 376 10^3/uL (150-450); Red Blood Count 4.07 10^6 /uL (3.70-4.87); Red Cell Distribution Width 14 % (10-15); White Blood Count 8.8 10^3/uL (3.5-10.8)
[2019-10-24 15:27] LABS: Albumin 4.4 g/dL (3.2-5.2); Albumin/Globulin Ratio 1.6 (1-3); BUN/Creatinine Ratio 24.1 (8-20); C Reactive Protein 1.3 mg/L (<8.01); Calcium 9.4 mg/dL (8.6-10.3); EGFR African American 83.2 (>60); EGFR Non-African American 68.8 (>60); Globulin 2.7 g/dL (2-4); Potassium 4.5 mmol/L (3.5-5.0); Total Bilirubin 0.3 mg/dL (0.2-1.0); Total Protein 7.1 g/dL (6.4-8.9)
[2019-10-24] MEDS ORDERED: traMADol TAB* 50 MG PO ONE (15:28)
[2019-10-24 16:47] VITALS: BP 153/91
== END 2019-10-24 16:45 | disposition home or self-care (01) ==
LOC: ED 11:58
DX: S03.02XA Dislocation of jaw, left side, initial encounter (principal); X58.XXXA Exposure to other specified factors, initial encounter; Y92.9 Unspecified place or not applicable; E78.00 Pure hypercholesterolemia, unspecified; J44.9 Chronic obstructive pulmonary disease, unspecified; K21.9 Gastro-esophageal reflux disease without esophagitis; F41.0 Panic disorder [episodic paroxysmal anxiety]; F32.9 Major depressive disorder, single episode, unspecified; Z79.02 Long term (current) use of antithrombotics/antiplatelets; Z79.82 Long term (current) use of aspirin; Z79.899 Other long term (current) drug therapy; Z85.3 Personal history of malignant neoplasm of breast; Z88.5 Allergy status to narcotic agent; Z88.2 Allergy status to sulfonamides; Z88.8 Allergy status to other drugs, medicaments and biological substances; Z91.041 Radiographic dye allergy status
CPT/HCPCS: 36415; 70490; 80053; 85025; 86140; 99282; A9270-GY

== ENCOUNTER → 2019-11-01 09:51 | Emergency (ER) | payer MEDICARE, OTHER ==
[~2019-11-01 09:51] MED LIST: HYDROcodone/ACETAMIN 5-325 MG* 1 TAB PO ONE
--- NOTE | 2019-11-01 10:26 | ED ---
Lower Extremity - HPI Summary HPI Summary: 64 year old F presenting to [facility] accompanied by daughter complains of right foot pain after having 2 falls last night. She states she has been having severe bilateral jaw pain x3 weeks for which she was seen in the ED on 10/28/2019 and discharged home. Patient has broken her jaw four times for which she has had reconstruction done per daughter. Patient states she hasn't been able to sleep due to the jaw pain. Yesterday 10/31/2019 evening, patient had to use bathroom. She states she fell asleep on the toilet, fell on the bathroom floor, woke up on the bathroom floor, and went back to bed. At 0200 11/01/2019, she went to bathroom again, fell asleep on the toilet, fell on the floor, and woke up on the bathroom floor. Patient states she doesn't know if she lost consciousness, doesn't remember how long she was on the floor, and only remembers waking up on the floor and thinks that she fell asleep on the toilet from being so tired. Patient now complaining of pain in posterior head, right foot, posterior neck, and headache. She reports right knee pain which is chronic. No chest pain, shortness of breath, abdominal pain, bilateral upper extremity pain, spinal pain, bilateral hip pain. The patient rates the pain 8/ 10 in severity. Symptoms aggravated by nothing. Symptoms alleviated by nothing. Usually walks unassisted at home. Usually uses cane outside of home. Patient states she used her walker today. Lives at home alone. 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 Medications reviewed. On anticoagulants. Hx blood clots. She states she has taken narcotics in the past. Allergies noted. Hx spinal fusion. - History of Current Complaint Chief Complaint: EDExtremityLower Stated Complaint: FALL INJ/R FOOT PAIN PER PT Time Seen by Provider: 11/01/19 10:19 Hx Obtained From: Patient, Family/Air Conditioning Installer - daughter Mechanism Of Injury: Other - fall from toilet Onset/Duration: Still Present Severity Currently: Severe Pain Intensity: 8 Pain Scale Used: 0-10 Numeric Timing: Constant Associated Signs And Symptoms: Positive: Negative - chest pain, shortness of breath, abdominal pain, bilateral upper extremity pain, spinal pain, bilateral hip pain, Other - pain in posterior head, right foot, posterior neck, and headache Aggravating Factor(s): Nothing Alleviating Factor(s): Nothing - Allergies/Home Medications Allergies/Adverse Reactions: Allergies Allergy/AdvReac Type Severity Reaction Status Date / Time deutetrabenazine Allergy See Comment Verified 10/28/19 09:38 [From Austedo] erenumab-aooe Allergy Unknown Verified 10/28/19 09:38 [From Aimovig Autoinjector] Reaction Details fremanezumab-vfrm Allergy Constipatio Verified 10/28/19 09:38 [From Ajovy] n hydromorphone [From Dilaudid] Allergy Vomiting Verified 10/28/19 09:38 Iodinated Contrast Media Allergy Difficulty Verified 10/28/19 09:38 Breathing memantine [From Namenda] Allergy Coughing Verified 10/28/19 09:38 oxycodone Allergy Vomiting Verified 10/28/19 09:38 prochlorperazine Allergy See Comment Verified 10/28/19 09:38 [From Compazine] Sulfa (Sulfonamide Allergy Rash And Verified 10/28/19 09:38 Antibiotics) Itching sumatriptan [From Imitrex] Allergy See Comment Verified 10/28/19 09:38 PMH/Surg Hx/FS Hx/Imm Hx Endocrine/Hematology History: Reports: Hx Anemia - when younger Denies: Hx Diabetes Cardiovascular History: Reports: Hx Hypercholesterolemia, Other Cardiovascular Problems/Disorders - 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 Denies: Hx Coronary Artery Disease, Hx Hypertension, Hx Pacemaker/ICD Respiratory History: Reports: Hx Asthma, Hx Chronic Obstructive Pulmonary Disease (COPD) GI History: Reports: Hx Diverticulosis - diverticulitis, Hx Gastroesophageal Reflux Disease, Other GI Disorders - Chroninc constipation History: Reports: Hx Kidney Infection Musculoskeletal History: Reports: Hx Arthritis, Hx Back Problems, Hx Fibromyalgia, Other Musculoskeletal History - Complex pain syndrome Sensory History: Reports: Hx Contacts or Glasses - glasses Denies: Hx Hearing Aid Opthamlomology History: Reports: Hx Contacts or Glasses - glasses Neurological History: Reports: Hx Migraine, Other Neuro Impairments/Disorders - 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 Denies: Hx CVA Psychiatric History: Reports: Hx Anxiety - with panic attacks, Hx Depression, Hx Panic Disorder, Hx Post Traumatic Stress Disorder, Hx Inpatient Treatment, Hx Community Mental Health Tx, Other Psychiatric Issues/Disorders - multiple personality disorder Denies: Hx Eating Disorder, Hx of Violent Episodes Against Others - Cancer History Cancer Type, Location and Year: Breast cancer right breast Hx Chemotherapy: Yes - [id number] Hx Radiation Therapy: Yes - [id number] - Surgical History Surgery Procedure, Year, and Place: Jaw surgery (1969, 1972, 1990), Hysterectomy (1987), Spinal fusion C3-7, L4-S1, Sinus (2005), Bladder tvt (2001 , 2009, 2016), ORIF right ankle (2009), BREAST BIOPSY Infectious Disease History: No Infectious Disease History: Reports: Hx of Known/Suspected MRSA - pt stated about 1 year ago, Hx Shingles Denies: Traveled Outside the [place] in Last 30 Days - Family History Known Family History: Positive: Other - depression, ETOH abuse - Social History Alcohol Use: Rare Alcohol Amount: 1 glass wine Hx Substance Use: No Substance Use Type: Reports: None Hx Tobacco Use: No Smoking Status (MU): Never Smoked Tobacco Review of Systems Negative: Chest Pain Negative: Shortness Of Breath Negative: Abdominal Pain Musculoskeletal: Negative - bilateral upper extremity pain, spinal pain, bilateral hip pain Positive: Other - pain in posterior head, right foot, posterior neck Positive: Headache All Other Systems Reviewed And Are Negative: Yes Physical Exam - Summary Physical Exam Summary: Constitutional: Well-developed, Well-nourished, Alert. (-) Distressed Skin: Warm, Dry HENT: Normocephalic; Atraumatic; no contusions/hematoma on head; bilateral TMJ pain Eyes: Conjunctiva normal Neck: Musculoskeletal ROM normal neck. (-) JVD, (-) Stridor, (-) Tracheal deviation, distal c-spine tenderness Cardio: Rhythm regular, rate normal, Heart sounds normal; Intact distal pulses; The pedal pulses are 2+ and symmetric. Radial pulses are 2+ and symmetric. (-) Murmur Pulmonary/Chest wall: Effort normal. (-) Respiratory distress, (-) Wheezes, (-) Rales Abd: Soft, (-) tenderness, (-) Distension, (-) Guarding, (-) Rebound Musculoskeletal: Right lateral forefoot contusion which is tender to palpation, no deformity Lymph: (-) Cervical adenopathy Neuro: Alert, Oriented x3, baseline dysarthria, no focal deficits Psych: Mood and affect Normal GCS: 15 Triage Information Reviewed: Yes Vital Signs On Initial Exam: Initial Vitals Temp Pulse Resp BP Pulse Ox 97.8 F 88 18 137/80 99 11/01/19 09:52 11/01/19 09:52 11/01/19 09:52 11/01/19 09:52 11/01/19 09:52 Vital Signs Reviewed: Yes Procedures - Sedation Patient Received Moderate/Deep Sedation with Procedure: No Diagnostics - Vital Signs Vital Signs Temp Pulse Resp BP Pulse Ox 11/01/19 09:52 97.8 F 88 18 137/80 99 - Laboratory Lab Statement: Any lab studies that have been ordered have been reviewed, and results considered in the medical decision making process. - Radiology R foot x-ray Radiology Interpretation Completed By: Radiologist Summary of Radiographic Findings: OSTEOPENIA WITH NO DISPLACED FRACTURE. IF PAIN PERSISTS, SHORT-TERM FOLLOW-UP IMAGING IS RECOMMENDED. ED physician has reviewed this report. - CT Brain CT Interpretation Completed By: Radiologist Summary of CT Findings: No intracranial mass or hemorrhage is noted. ED physician has reviewed this report. Cervical spine CT Interpretation Completed By: Radiologist Summary of CT Findings: Fusion of C3-C7 with plate and screws at C3-C4. No fracture of the cervical spine is noted. ED physician has reviewed this report. - EKG 1047 Cardiac Rate: NL - 80 BPM EKG Rhythm: Sinus Rhythm Summary of EKG Findings: No ischemic changes. ED physician has reviewed and interpreted this EKG Re-Evaluation - Re-Evaluation First Eval Re-Evaluation Time: 11:58 Change: Improved Comment: patient feels better and agrees to discharge Lower Extremity Course/Dx - Course Course Of Treatment: 64 y/o F presents with pain in posterior head, right foot, posterior neck, and headache after having 2 falls last night. She has been having severe bilateral jaw pain x3 weeks for which she was seen in the ED on 10/28/2019. She hasn't been able to sleep due to the jaw pain. Last night, patient got up 2 times to use the bathroom. She states she fell asleep on the toilet, fell on the bathroom floor, woke up on the bathroom floor both times. She doesn' t know if she lost consciousness, doesn't remember how long she was on the floor , and only remembers waking up on the floor. Usually walks unassisted at home. Usually uses cane outside of home. Patient states she used her walker today. On anticoagulants. She states she has taken narcotics in the past. Upon exam, the patient has right lateral forefoot contusion which is tender to palpation, no deformity. Distal c-spine tenderness. Bilateral TMJ pain. Baseline dysarthria, no focal deficits. No contusions/hematoma on head. An EKG shows sinus rhythm 80 BPM and no ischemic changes. CT Brain shows, per radiologist: No intracranial mass or hemorrhage is noted. CT Cervical spine shows, per radiologist: Fusion of C3-C7 with plate and screws at C3-C4. No fracture of the cervical spine is noted. Right foot x-ray shows, per radiologist: OSTEOPENIA WITH NO DISPLACED FRACTURE. IF PAIN PERSISTS, SHORT-TERM FOLLOW-UP IMAGING IS RECOMMENDED. In the ED course, patient was given 1 tab Moro. Patient will be discharged home with follow up from primary care provider in 2-3 days. Patient was instructed to return to Emergency Department for new or worsening symptoms. Patient understands and is agreeable to this plan. - Diagnoses Provider Diagnoses: Insomnia, Fall, Head injury, Contusion of right foot Discharge ED - Sign-Out/Discharge Documenting (check all that apply): Patient Departure - Discharge Plan Condition: Stable Disposition: HOME Patient Education Materials: Head Injury (ED), Foot Contusion (ED), Insomnia ( ED), Fall Prevention (ED) Referrals: Melia Marin MD [Primary Care Provider] - 2 Days Additional Instructions: Follow up with your primary care provider in 2-3 days. Return to the Emergency Department for new or worsening symptoms. - Billing Disposition and Condition Condition: STABLE Disposition: Home - Attestation Statements Document Initiated by Yaakovibe: Yes Documenting Scribe: Kim Monk Provider For Whom Damian is Documenting (Include Credential): Constantino Brooks DO Scribe Attestation: Kim Combs scribed for Constnatino Brooks DO on 11/01/19 at 1543. Scribe Documentation Reviewed: Yes Provider Attestation: The documentation as recorded by the Kim greenwood accurately reflects the service I personally performed and the decisions made by me, Constantino Brooks DO Status of Scribe Document: Viewed
[2019-11-01 12:04] VITALS: BP 147/92
== END | disposition home or self-care (01) ==
LOC: ED 09:51
DX: G47.00 Insomnia, unspecified (principal); S90.31XA Contusion of right foot, initial encounter; S09.90XA Unspecified injury of head, initial encounter; M79.671 Pain in right foot; E78.00 Pure hypercholesterolemia, unspecified; J45.909 Unspecified asthma, uncomplicated; J44.9 Chronic obstructive pulmonary disease, unspecified; R51 Headache; F41.9 Anxiety disorder, unspecified; R68.84 Jaw pain; W19.XXXA Unspecified fall, initial encounter; Y92.9 Unspecified place or not applicable; Z88.2 Allergy status to sulfonamides; Z85.3 Personal history of malignant neoplasm of breast; Z79.82 Long term (current) use of aspirin; Z79.899 Other long term (current) drug therapy
CPT/HCPCS: 70450; 72125; 93005; 99283

== ENCOUNTER 2019-11-07 00:58 | Emergency (ER) | payer MEDICARE, OTHER ==
--- NOTE | 2019-11-07 01:39 | ED ---
Throat Pain/Nasal Congestion - HPI Summary HPI Summary: This pt is a 64 Y/O F presenting to [facility] with a CC of L jaw pain that is currently rated a 10/10 in severity. She reports that she was seen for this pain and was told she has stretched tendons and ligaments. She states that she has a migraine as well. She denies any fevers, chills, headaches, N/V, and SOB. She states that her pain doctor does not help with her jaw pain and the oral doctor that she saw stated that the pain was not muscular related. She has a PMHx of COPD. She has no alleviating or aggravating factors. - History of Current Complaint Chief Complaint: EDGeneral Time Seen by Provider: 11/07/19 01:28 Hx Obtained From: Patient Onset/Duration: Gradual Onset, Still Present Severity: Severe Associated Signs And Symptoms: Positive: Negative - fevers, chills, headaches, N /V, and SOB Cough: None - Allergies/Home Medications Allergies/Adverse Reactions: Allergies Allergy/AdvReac Type Severity Reaction Status Date / Time deutetrabenazine Allergy See Comment Verified 11/07/19 01:08 [From Austedo] erenumab-aooe Allergy Unknown Verified 11/07/19 01:08 [From Aimovig Autoinjector] Reaction Details fremanezumab-vfrm Allergy Constipatio Verified 11/07/19 01:08 [From Ajovy] n hydromorphone [From Dilaudid] Allergy Vomiting Verified 11/07/19 01:08 Iodinated Contrast Media Allergy Difficulty Verified 11/07/19 01:08 Breathing memantine [From Namenda] Allergy Coughing Verified 11/07/19 01:08 oxycodone Allergy Vomiting Verified 11/07/19 01:08 prochlorperazine Allergy See Comment Verified 11/07/19 01:08 [From Compazine] Sulfa (Sulfonamide Allergy Rash And Verified 11/07/19 01:08 Antibiotics) Itching sumatriptan [From Imitrex] Allergy See Comment Verified 11/07/19 01:08 PMH/Surg Hx/FS Hx/Imm Hx Previously Healthy: Yes Endocrine/Hematology History: Reports: Hx Anemia - when younger Denies: Hx Diabetes Cardiovascular History: Reports: Hx Hypercholesterolemia, Other Cardiovascular Problems/Disorders - 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 Denies: Hx Coronary Artery Disease, Hx Hypertension, Hx Pacemaker/ICD Respiratory History: Reports: Hx Asthma, Hx Chronic Obstructive Pulmonary Disease (COPD) GI History: Reports: Hx Diverticulosis - diverticulitis, Hx Gastroesophageal Reflux Disease, Other GI Disorders - Chroninc constipation History: Reports: Hx Kidney Infection Musculoskeletal History: Reports: Hx Arthritis, Hx Back Problems, Hx Fibromyalgia, Other Musculoskeletal History - Complex pain syndrome Sensory History: Reports: Hx Contacts or Glasses - glasses Denies: Hx Hearing Aid Opthamlomology History: Reports: Hx Contacts or Glasses - glasses Neurological History: Reports: Hx Migraine, Other Neuro Impairments/Disorders - 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 Denies: Hx CVA Psychiatric History: Reports: Hx Anxiety - with panic attacks, Hx Depression, Hx Panic Disorder, Hx Post Traumatic Stress Disorder, Hx Inpatient Treatment, Hx Community Mental Health Tx, Other Psychiatric Issues/Disorders - multiple personality disorder Denies: Hx Eating Disorder, Hx of Violent Episodes Against Others - Cancer History Cancer Type, Location and Year: Breast cancer right breast Hx Chemotherapy: Yes - 2899-1244 Hx Radiation Therapy: Yes - [id number] - Surgical History Surgical History: Yes Surgery Procedure, Year, and Place: Jaw surgery (1969, 1972, 1990), Hysterectomy (1987), Spinal fusion C3-7, L4-S1, Sinus (2005), Bladder tvt (2001 , 2009, 2016), ORIF right ankle (2009), BREAST BIOPSY - Immunization History Immunizations Up to Date: Yes Infectious Disease History: No Infectious Disease History: Reports: Hx of Known/Suspected MRSA - pt stated about 1 year ago, Hx Shingles Denies: Traveled Outside the [place] in Last 30 Days - Family History Known Family History: Positive: Other - depression, ETOH abuse - Social History Occupation: Retired Lives: Alone Alcohol Use: Rare Alcohol Amount: 1 glass wine Hx Substance Use: No Substance Use Type: Reports: None Hx Tobacco Use: No Smoking Status (MU): Never Smoked Tobacco Review of Systems Negative: Fever, Chills Positive: Dental Pain - Jaw pain Negative: Vomiting, Nausea Negative: Headache All Other Systems Reviewed And Are Negative: Yes Physical Exam - Summary Physical Exam Summary: Appearance: Well-appearing, Well-nourished, lying in bed comfortable Skin: Warm, dry, no obvious rash Eyes: sclera anicteric, no conjunctival pallor ENT: mucous membranes moist, speech is clear and fluent, able to move jaw without any obvious discomfort. Neck: deferred Respiratory: No signs of respiratory distress Cardiovascular: Appears well perfused, pulses are nml Abdomen: deferred Musculoskeletal: Moving all 4 extremities without obvious discomfort Neurological: Awake and alert, mentation is normal, speech is fluent and appropriate Psychiatric: affect is normal, does not appear anxious or depressed Triage Information Reviewed: Yes Vital Signs On Initial Exam: Initial Vitals Temp Pulse Resp BP Pulse Ox 97.5 F 76 16 143/90 96 11/07/19 00:59 11/07/19 00:59 11/07/19 00:59 11/07/19 00:59 11/07/19 00:59 Vital Signs Reviewed: Yes Procedures - Sedation Patient Received Moderate/Deep Sedation with Procedure: No Diagnostics - Vital Signs Vital Signs Temp Pulse Resp BP Pulse Ox 11/07/19 00:59 97.5 F 76 16 143/90 96 - Laboratory Lab Statement: Any lab studies that have been ordered have been reviewed, and results considered in the medical decision making process. EENT Course/Dx - Course Course Of Treatment: This pt is a 64 Y/O F presenting to [facility] with a CC of L jaw pain that is currently rated a 10/10 in severity. She reports that she was seen for this pain and was told she has stretched tendons and ligaments. She states that she has a migraine as well. She denies any fevers, chills, headaches , N/V, and SOB. She states that her pain doctor does not help with her jaw pain and the oral doctor that she saw stated that the pain was not muscular related. Her PE found that her speech is clear and fluent, able to move jaw without any obvious discomfort. She presents for repeated evaluation of her chronic jaw pain. She has already had extensive evaluation including imaging of the jaw recently. She does not present with any disability consequent to the pain, such as trismus. She already sees a PCP and a pain management nurse practitioner. Unfortunately I do not have anything further to offer the patient for her chronic pain problem in the ED. She will be discharged home with a dX of chronic jaw pain - Diagnoses Provider Diagnoses: Chronic jaw pain Discharge ED - Sign-Out/Discharge Documenting (check all that apply): Patient Departure - discharge - Discharge Plan Condition: Good Disposition: HOME Patient Education Materials: Chronic Pain (ED) Referrals: Melia Marin MD [Primary Care Provider] - Additional Instructions: I'm sorry that we do not have anything further to offer you here to address this chronic pain issue. All I can recommend is discuss it with your pain management practitioner. - Billing Disposition and Condition Condition: GOOD Disposition: Home - Attestation Statements Document Initiated by Scribe: Yes Documenting Scribe: Kain Tristan Provider For Whom Scribe is Documenting (Include Credential): Darryl Rodgers MD Scribe Attestation: I, Kain Tristan, scribed for Darryl Rodgers MD on 11/07/19 at 0155. Status of Scribe Document: Viewed
[2019-11-07 02:22] VITALS: BP 147/99
== END 2019-11-07 02:20 | disposition home or self-care (01) ==
LOC: ED 00:58
DX: R68.84 Jaw pain (principal); Z88.5 Allergy status to narcotic agent; Z88.2 Allergy status to sulfonamides; Z88.8 Allergy status to other drugs, medicaments and biological substances; Z91.041 Radiographic dye allergy status
CPT/HCPCS: 99282

== ENCOUNTER 2019-11-16 07:32 | Emergency (ER) | payer MEDICARE, OTHER ==
--- NOTE | 2019-11-16 08:00 | ED ---
Back Pain - HPI Summary HPI Summary: Patient is a 64 y/o female arriving via ambulance to [facility] with a chief complaint of low left back pain radiating into the LLE onset 11/13/2019. She reports a history of multiple spinal surgeries with the most recent one in 2004. For the last four days, she has been experiencing pain in the lower back worse on the left radiating into the hip and down the right extremity. She notes pain on the right as well due to compensation of the left. She has spoken with her neurosurgeon, Dr. Graf at [facility], and she has a planned spinal ablation tomorrow, which is why she is unable to take any of her pain medications. Patient rates the sharp pain 8/10 in severity at rest and 10/10 with lifting described as a burning pain in the left anterior thigh. She denies any fever, chills, erythema of eyes, sore throat, CP, SOB, cough, abdominal pain , N/V, bowel or bladder incontinence, dysuria, hematuria, edema, rash, or dizziness. No recent falls or trauma. Past medical history significant for anemia, HLD, DVT, asthma, COPD, diverticulosis, arthritis, fibromyalgia, breast cancer, Tardiv dyskinesia, anxiety, depression, panic disorder, PTSD, multiple personality disorder. Nonsmoker, rare alcohol use, no substance use. Medications reviewed. Allergies noted. - History of Current Complaint Chief Complaint: EDBackInjuryPain Stated Complaint: SCIATICA PER EMS Time Seen by Provider: 11/16/19 07:46 Hx Obtained From: Patient Onset/Duration: Sudden Onset, Gradual Onset, Lasting Days, Still Present Onset/Duration: Started Days Ago - 11/13/2019, Atraumatic, Still Present Timing: Constant Back Pain Location: Radiates To - low back into L hip and down LLE Severity Initially: Moderate Severity Currently: Severe Pain Intensity: 8 Pain Scale Used: 0-10 Numeric Character: Sharp, Burning - with lifting Aggravating Symptom(s): Lifting Alleviating Symptom(s): Nothing Associated Signs And Symptoms: Positive: Other - Negative: fever, chills, erythema of eyes, sore throat, CP, SOB, cough, abdominal pain, N/V, dysuria, hematuria, edema, rash, or dizziness. Negative: Fever, Abdominal Pain, Bladder Incontinence, Bowel Incontinence - Allergies/Home Medications Allergies/Adverse Reactions: Allergies Allergy/AdvReac Type Severity Reaction Status Date / Time deutetrabenazine Allergy See Comment Verified 11/16/19 07:44 [From Austedo] erenumab-aooe Allergy Unknown Verified 11/16/19 07:44 [From Aimovig Autoinjector] Reaction Details fremanezumab-vfrm Allergy Constipatio Verified 11/16/19 07:44 [From Ajovy] n hydromorphone [From Dilaudid] Allergy Vomiting Verified 11/16/19 07:44 Iodinated Contrast Media Allergy Difficulty Verified 11/16/19 07:44 Breathing memantine [From Namenda] Allergy Coughing Verified 11/16/19 07:44 oxycodone Allergy Vomiting Verified 11/16/19 07:44 prochlorperazine Allergy See Comment Verified 11/16/19 07:44 [From Compazine] Sulfa (Sulfonamide Allergy Rash And Verified 11/16/19 07:44 Antibiotics) Itching sumatriptan [From Imitrex] Allergy See Comment Verified 11/16/19 07:44 Home Medications: Home Medications Albuterol HFA INHALER* [Ventolin HFA Inhaler*] 2 puff INH Q4H PRN 09/23/18 [ History Confirmed 11/16/19] Ammonium Lactate 12% [Lac-Hydrin 12 %] 1 applic TOPICAL TID 09/23/18 [History Confirmed 11/16/19] Krill/Om-3/Dha/Epa/Phospho/Ast [Krill Oil 500 mg Softgel] 1 cap PO DAILY [History Confirmed 11/16/19] Ondansetron ODT TAB* [Zofran 4 MG Odt TAB*] 4 mg PO TID PRN 09/23/18 [History Confirmed 11/16/19] Triamcinolone 0.1% CREAM (NF) [Kenalog 0.1% Cream (NF)] 1 applic TOPICAL DAILY PRN 09/23/18 [History Confirmed 11/16/19] Budesonide/Formote 160/4.5(NF) [Symbicort 160/4.5 (NF)] 1 puff INH DAILY [History Confirmed 11/16/19] Aspirin 81 mg CHEW TAB* 81 mg PO DAILY 02/01/19 [History Confirmed 11/16/19] Polyethylene Glycol 3350* [Miralax (17 GM DOSE REAL)] 17 gm PO DAILY PRN [History Confirmed 11/16/19] Dihydroergotamine (D.H.E.)* [D.h.e. 45*] 1 mg IM DAILY PRN amp MDD 3 shots/day 02/06/19 [Rx Confirmed 11/16/19] Escitalopram * [Lexapro *] 20 mg PO DAILY tablet 02/06/19 [Rx Confirmed ] Fenofibrate(NF) [Tricor(NF)] 145 mg PO DAILY tab 02/06/19 [Rx Confirmed ] Montelukast Sodium TAB* [Singulair 10 MG TAB*] 10 mg PO BEDTIME tab 02/06/19 [ Rx Confirmed 11/16/19] Sucralfate TAB* [Carafate*] 1 gm PO BID tab 02/06/19 [Rx Confirmed 11/16/19] ALPRAZolam [Xanax Xr] 1 mg PO BID 11/01/19 [History Confirmed 11/16/19] ALPRAZolam [Xanax Xr] 2 mg PO BEDTIME 11/01/19 [History Confirmed 11/16/19] Acetaminophen [Tylenol Extra Strength] 1,000 mg PO Q8H PRN 11/01/19 [History Confirmed 11/16/19] Albuterol 2.5MG/3ML (0.083%)* [Ventolin 2.5 MG/3 ML NEB.PAPI*] 3 ml INH TID PRN 11/01/19 [History Confirmed 11/16/19] Aloe Vera 25 mg PO DAILY 11/01/19 [History Confirmed 11/16/19] Artificial Tears* 15 ML BTL [Polyvinyl Alcohol 1.4% OPTH*] 1 drop BOTH EYES TID 11/01/19 [History Confirmed 11/16/19] Cyclobenzaprine TAB* [Flexeril 10 MG TAB*] 10 mg PO QID 11/01/19 [History Confirmed 11/16/19] Hydrocodone/Acetaminophen [Hydrocodone-Acetamin 5-325 mg] 1 each PO DAILY MDD 1 tab 11/01/19 [History Confirmed 11/16/19] Lactobacillus (NF) [Culturelle (NF)] 10 tab PO DAILY 11/01/19 [History Confirmed 11/16/19] Lidocaine/Transparent Dressing [Lidocaine/Transparent Mark] 1 % BOTH NARES TID PRN 11/01/19 [History Confirmed 11/16/19] Magnesium Oxide TAB* [MagOx 400 TAB*] 500 mg PO DAILY 11/01/19 [History Confirmed 11/16/19] Omeprazole CAP (NF) [Prilosec CAP* 20 MG] 20 mg PO DAILY 11/01/19 [History Confirmed 11/16/19] Rivaroxaban TAB(*) [Xarelto 20 mg] 20 mg PO DAILY 11/01/19 [History Confirmed ] Ubidecarenone [Coq-10 Tr] 400 mg PO DAILY 11/01/19 [History Confirmed 11/16/19] diPHENhydraMINE PO* [Benadryl PO 25 MG TAB*] 25 mg PO Q8H PRN 11/01/19 [History Confirmed 11/16/19] guaiFENesin ER TAB [Mucinex*] 600 mg PO Q12H PRN 11/01/19 [History Confirmed ] Diclofenac 1% GEL (NF) [Voltaren 1% GEL (NF)] 1 applic TOPICAL DAILY 11/16/19 [ History Confirmed 11/16/19] HYDROcodone/ACETAMIN 5-325 MG* [[place] 5-325 TAB*] 1 tab PO Q6H PRN #8 tab MDD 4 11/16/19 [Rx] HYDROcodone/ACETAMIN 5-325 MG* [[place] 5-325 TAB*] 1 tab PO Q6H PRN #8 tab MDD 4 11/16/19 [Rx] Lidocaine PATCH 5%* [Lidoderm 5% Patch*] 1 patch TRANSDERM DAILY #14 patch 11/16 [Rx] predniSONE 50 mg TAB [Deltasone 50 mg TAB] 50 mg PO DAILY #4 tab 11/16/19 [Rx] predniSONE 50 mg TAB [Deltasone 50 mg TAB] 50 mg PO DAILY #4 tab 11/16/19 [Rx] PMH/Surg Hx/FS Hx/Imm Hx Endocrine/Hematology History: Reports: Hx Anemia - when younger Denies: Hx Diabetes Cardiovascular History: Reports: Hx Deep Vein Thrombosis, Hx Hypercholesterolemia, Other Cardiovascular Problems/Disorders - 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 Denies: Hx Coronary Artery Disease, Hx Hypertension, Hx Pacemaker/ICD Respiratory History: Reports: Hx Asthma, Hx Chronic Obstructive Pulmonary Disease (COPD) GI History: Reports: Hx Diverticulosis - diverticulitis, Hx Gastroesophageal Reflux Disease, Other GI Disorders - Chroninc constipation History: Reports: Hx Kidney Infection Musculoskeletal History: Reports: Hx Arthritis, Hx Back Problems, Hx Fibromyalgia, Other Musculoskeletal History - Complex pain syndrome Sensory History: Reports: Hx Contacts or Glasses - glasses Denies: Hx Hearing Aid Opthamlomology History: Reports: Hx Contacts or Glasses - glasses Neurological History: Reports: Hx Migraine, Other Neuro Impairments/Disorders - 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 Denies: Hx CVA Psychiatric History: Reports: Hx Anxiety - with panic attacks, Hx Depression, Hx Panic Disorder, Hx Post Traumatic Stress Disorder, Hx Inpatient Treatment, Hx Community Mental Health Tx, Other Psychiatric Issues/Disorders - multiple personality disorder Denies: Hx Eating Disorder, Hx of Violent Episodes Against Others - Cancer History Cancer Type, Location and Year: Breast cancer right breast Hx Chemotherapy: Yes - [id number] Hx Radiation Therapy: Yes - [id number] - Surgical History Surgical History: Yes Surgery Procedure, Year, and Place: Jaw surgery (1969, 1972, 1990), Hysterectomy (1987), Spinal fusion C3-7, L4-S1, Sinus (2005), Bladder tvt (2001 , 2009, 2016), ORIF right ankle (2009), BREAST BIOPSY Infectious Disease History: No Infectious Disease History: Reports: Hx of Known/Suspected MRSA - pt stated about 1 year ago, Hx Shingles Denies: Traveled Outside the [place] in Last 30 Days - Family History Known Family History: Positive: Other - depression, ETOH abuse - Social History Alcohol Use: Rare Alcohol Amount: 1 glass wine Hx Substance Use: No Substance Use Type: Reports: None Hx Tobacco Use: No Smoking Status (MU): Never Smoked Tobacco Review of Systems Negative: Fever, Chills Negative: Erythema Negative: Sore Throat Negative: Chest Pain Negative: Shortness Of Breath, Cough Negative: Abdominal Pain, Vomiting, Nausea, Other - incontinence Negative: dysuria, hematuria, incontinence Positive: Myalgia - low back into LLE. Negative: Edema Negative: Rash Neurological/Mental Status: Other - Negative: dizziness All Other Systems Reviewed And Are Negative: Yes Physical Exam - Summary Physical Exam Summary: Constitutional: Well-developed, Well-nourished, Alert. (-) Distressed Skin: Warm, Dry HENT: Normocephalic; Atraumatic Eyes: Conjunctiva normal Neck: Musculoskeletal ROM normal neck. (-) JVD, (-) Stridor, (-) Tracheal deviation Cardio: Rhythm regular, rate normal, Heart sounds normal; Intact distal pulses; The pedal pulses are 2+ and symmetric. Radial pulses are 2+ and symmetric. (-) Murmur Pulmonary/Chest wall: Effort normal. (-) Respiratory distress, (-) Wheezes, (-) Rales Abd: Soft. (-) Tenderness, (-) Distension, (-) Guarding, (-) Rebound Musculoskeletal: (-) Edema Lymph: (-) Cervical adenopathy Neuro: Alert, Oriented x3, Exam limited by left anterior thigh pain with lifting , No leg swelling, Passive ROM intact Psych: Mood and affect Normal Triage Information Reviewed: Yes Vital Signs On Initial Exam: Initial Vitals Temp Pulse Resp BP Pulse Ox 97.5 F 81 20 129/87 94 11/16/19 07:39 11/16/19 07:39 11/16/19 07:39 11/16/19 07:39 11/16/19 07:39 Vital Signs Reviewed: Yes Completion Of Physical Exam Limited Due To: Other - patient unable to move LLE without pain Procedures - Sedation Patient Received Moderate/Deep Sedation with Procedure: No Diagnostics - Vital Signs Vital Signs Temp Pulse Resp BP Pulse Ox 11/16/19 07:39 97.5 F 81 20 129/87 94 - Laboratory Lab Statement: Any lab studies that have been ordered have been reviewed, and results considered in the medical decision making process. - Radiology Hip/Pelvis XR Radiology Interpretation Completed By: Radiologist Summary of Radiographic Findings: Impression: No fracture of the left hip or pelvis is noted. ED physician has reviewed this report. L Knee XR Radiology Interpretation Completed By: Radiologist Summary of Radiographic Findings: Impression: No fracture of the left knee is noted. ED physician has reviewed this report. - Ultrasound Venous Doppler US Ultrasound Interpretation Completed By: Radiologist Summary of Ultrasound Findings: Impression: No evidence of deep venous thrombosis is identified. ED physician has reviewed this report. Re-Evaluation - Re-Evaluation First Eval Re-Evaluation Time: 11:00 Comment: Results and d/c plan discussed Back Pain Course/Dx - Course Course Of Treatment: Patient is a 64 y/o female arriving via ambulance with low back pain worse on the L radiating into the hip and LLE aggravated with lifting onset 11/13/2019. Denies fevers, SOB, bowel or bladder incontinence, edema. Hx DVT, arthritis, fibromyalgia, Tardiv dyskinesia, spinal fusions last in 2004; neurosurgeon is Dr. Graf at [facility] with planned spinal ablation tomorrow. Physical exam limited by anterior thigh pain, no leg swelling, passive ROM intact. Differential diagnoses include sciatica, low probability of DVT, osteoarthritis of lumbar spine, radiculopathy, hip arthritis. Patient received Tramadol and Lidocaine patch. Venous Doppler lower extremity US negative for DVT. Hip/Pelvis and Knee XRs are negative for fracture. Patient received [place] and Prednisone. There are no clinical findings for cauda equina syndrome. All results discussed Patient is instructed to keep her appointment for pain management tomorrow and follow up with her spinal doctor. She is given Rx for [place], Lidocaine patch, and Prednisone. She understands and agrees with plan. - Diagnoses Differential Diagnosis/HQI/PQRI: Positive: Other - sciatica, low probability of DVT, osteoarthritis of lumbar spine, radiculopathy, hip arthritis Provider Diagnoses: Left sided sciatica Discharge ED - Sign-Out/Discharge Documenting (check all that apply): Patient Departure - Patient will be discharged home. - Discharge Plan Condition: Stable Disposition: HOME Prescriptions: HYDROcodone/ACETAMIN 5-325 MG* [[place] 5-325 TAB*] 1 tab PO Q6H PRN #8 tab MDD 4 PRN Reason: Pain - Severe HYDROcodone/ACETAMIN 5-325 MG* [[place] 5-325 TAB*] 1 tab PO Q6H PRN #8 tab MDD 4 PRN Reason: Pain - Severe Lidocaine PATCH 5%* [Lidoderm 5% Patch*] 1 patch TRANSDERM DAILY #14 patch predniSONE 50 mg TAB [Deltasone 50 mg TAB] 50 mg PO DAILY #4 tab predniSONE 50 mg TAB [Deltasone 50 mg TAB] 50 mg PO DAILY #4 tab Patient Education Materials: Sciatica (ED) Referrals: Melia Marin MD [Primary Care Provider] - 3 Days Additional Instructions: Please take medications as prescribed. Keep your appointment for pain management tomorrow. Follow up with your spinal doctor in 1-2 weeks. Return to the emergency department for any new or worsening symptoms. - Attestation Statements Document Initiated by Scribe: Yes Documenting Scribe: Kelly Florian Provider For Whom Damian is Documenting (Include Credential): Dr. Pipo Finnegan MD Scribe Attestation: IKelly, scribed for Dr. Pipo Finnegan MD on 11/16/19 at 1100. Status of Scribe Document: Ready
[2019-11-16] MEDS ORDERED: Lidocaine PATCH 5%* 1 PATCH TRANSDERM ONE (08:03)
[2019-11-16] MEDS ORDERED: traMADol TAB* 50 MG PO ONE (08:03)
[2019-11-16] MEDS ORDERED: HYDROcodone/ACETAMIN 5-325 MG* 1 TAB PO ONE (09:43)
[2019-11-16 11:11] VITALS: BP 168/92
[2019-11-16] MEDS ORDERED: Lidocaine Patch REMOVE* 1 NOTE MISC SCH (21:00)
== END 2019-11-16 11:20 | disposition home or self-care (01) ==
LOC: ED 07:32
DX: M54.32 Sciatica, left side (principal); E78.00 Pure hypercholesterolemia, unspecified; J44.9 Chronic obstructive pulmonary disease, unspecified; D64.9 Anemia, unspecified; K21.9 Gastro-esophageal reflux disease without esophagitis; F41.9 Anxiety disorder, unspecified; F43.10 Post-traumatic stress disorder, unspecified; Z86.718 Personal history of other venous thrombosis and embolism; Z85.3 Personal history of malignant neoplasm of breast; Z90.710 Acquired absence of both cervix and uterus; Z79.899 Other long term (current) drug therapy; Z88.2 Allergy status to sulfonamides; Z88.6 Allergy status to analgesic agent; Z88.5 Allergy status to narcotic agent; Z88.8 Allergy status to other drugs, medicaments and biological substances; Z91.041 Radiographic dye allergy status
CPT/HCPCS: 99283; A9270-GY; J7512

== ENCOUNTER 2020-01-12 14:52 | Emergency (ER) | payer MEDICAID, MEDICARE ==
--- OUTSIDE RECORDS SUMMARY | 2020-01-12 15:04 | XMS REPORT | Continuity of Care Document ---
:1955 External Reference #:[id number] Author Name Evans Vuong M.D. 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 Onset: 10/02/2014 Localized, primary osteoarthritis Evans Vuong M.D. Onset: 06/21/2015 Social History Type Date Description Comments Sex Unknown ETOH Use Denies alcohol use Tobacco Use Start: Unknown Patient has never smoked Recreational Drug Use Denies Drug Use Smoking Status Reviewed: 12/06/19 Patient has never smoked Exercise Type/Frequency Exercises rarely Allergies, Adverse Reactions, Alerts Active Allergies Reaction Severity Comments Date Sulfa Antibiotics 03/21/2013 Dilaudid 03/21/2013 Oxycodone 03/21/2013 Imitrex 03/21/2013 Bentyl 09/19/2013 Namenda Cough 12/19/2013 Aimovig 09/27/2019 Ajovy 09/27/2019 Austedo 09/27/2019 Compazine 09/27/2019 Silvadene 09/27/2019 Oxycontin 09/27/2019 Lipitor 09/27/2019 Levofloxacin 09/27/2019 Reglan 09/27/2019 Tegaderm 09/27/2019 Medications Active Medications SIG Qnty Indications Ordering Date Provider Lidocaine HCL instill 1 spray 50ml Charles Leggett 08/15/2019 4% Solution in each nostril Vani Quiñones as needed for migraine up to twice a day Dihydroergotamine inject one 10units Charles Leggett 09/06/2012 Mesylate milliliters every Vani Quiñones 1mg/ml Solution 8 hours as needed for migraine. maximum daily dose = 3 mg max weekly dose is 6 mg Hydrocodone 1/2 tab by mouth Unknown Bitartrate/Acetaminophen every 6 hours as needed pain 5-325mg Tablets Clopidogrel Bisulfate 1 by mouth every Unknown 75mg day Tablets Pantoprazole Sodium 1 by mouth every Unknown 40mg day Tablets DR Miralax daily Unknown 3350NF Powder Ondansetron HCL one by mouth Unknown 4mg Tablets every 8 hours as needed for nausea Benadryl Allergy as needed Unknown 25mg Tablets Sucralfate take one tablet Unknown 1gm Tablets by mouth two times a day Aspirin 81 1 by mouth every Unknown 81mg Tablets DR day Symbicort 1 puff a day Unknown 160-4.5mcg/Act Aerosol Aloe Vera Concentrate one cap daily Unknown 25mg Capsules Magnesium take one tablet Unknown 500mg Tablets twice a day by mouth Krill Oil 1 cap at bedtime Unknown 350mg Capsules Centrum Silver 50+Women once daily Unknown 50+Women Tablets Co Q-10 Plus daily Unknown 100-20mg Capsules Mucinex 2 by mouth twice Unknown 600mg Tablets ER 12HR a day as needed Triaminolone Acetone prn Unknown Cream .1% Ammonium Lactate use twice a day Unknown 12% Cream Albuterol Sulfate 1 application Unknown (2.5mg/3ML) every 4 hours as 0.083% Nebulizer needed Lexapro 1 tab by mouth Unknown 20mg Tablets every day Cyclobenzaprine HCL 1 tab at 1 am, 1 Unknown 10mg tab at noon, 1 Tablets tab at 4 pm, 1 tab at bedtime Montelukast Sodium 1 by mouth every Unknown 10mg night Tablets Fenofibrate Micronized 1 by mouth every Unknown 145mg day Capsules Xanax 1/2 tab am, 1/2 Unknown 2mg Tablets tab noon, 1 tab at bedtime History Medications Lidocaine HCL 1 [...] 06/21/2015 Injection Injection Onabotulinumtoxin A, Lea Raines, CAT HOOKER 04/03/2015 1 Unit Injection Injection Onabotulinumtoxin A, Lea Raines, GEO 01/02/2015 1 Unit Injection Injection Onabotulinumtoxin Bello, Charles Quiñones M.D. 10/02/2014 1 Unit Injection Injection Onabotulinumtoxin Bello, Charles Quiñones M.D. 07/03/2014 1 Unit Injection Injection Onabotulinumtoxin Bello, Charles Quiñones M.D. 03/27/2014 1 Unit Injection Injection Onabotulinumtoxin Bello, Charles Quiñones M.D. 12/19/2013 1 Unit Injection Injection Onabotulinumsofixin Bello, Charles Quiñones M.D. 09/19/2013 1 Unit Injection Injection Onabotulinumsofixin Bello, Charles Quiñones M.D. 06/13/2013 1 Unit [...] 06/14/2012 Injection 1 MG Injection Synvisc Or Synvisc-Jaz Vuong M.D. 06/14/2012 Injection 1 MG Injection Injection Onabotulinumtoxin Bello, Charles Quiñones M.D. 05/31/2012 1 Unit Injection Injection Onabotulinumtoxin Bello, Charles Quiñones M.D. 05/31/2012 1 Unit Injection Immunizations Description No Information Available Vital Signs Date Vital Result Comment 12/06/2019 11:17am Height 64 inches 5'4" Weight 144.00 lb Heart Rate 70 /min BP Systolic 100 mmHg BP Diastolic 68 mmHg Respiratory Rate 12 /min Body Temperature 97.6 F Pain Level 6 BMI (Body Mass Index) 24.7 kg/m2 09/27/2019 2:45pm Height 64 inches 5'4" Weight 150.25 lb Heart Rate 88 /min BP Systolic Sitting 132 mmHg BP Diastolic Sitting 86 mmHg Respiratory Rate 24 /min BMI (Body Mass Index) 25.8 kg/m2 Results Description No Information Available Procedures Date Code Description Status 07/10/2019 90591 ECHO Transthorasic Realtime 2D W Doppler & Color Flow Hosp Completed Medical Devices Description No Information Available Encounters Type Date Location Provider Dx Diagnosis Office Visit 09/27/2019 [facility] Charles Quiñones, G89.4 Chronic 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 skin M48.9 Spondylopathy, unspecified Z98.1 Arthrodesis status Office Visit 07/11/2019 [facility] Jennifer M54.12 Radiculopathy, 10:47a Assoc,ton Louis MD cervical [...] Z98.1 Arthrodesis status Office Visit 07/09/2019 10:42a [facility] J44.9 Chronic Assoc,ton Freeman M.D. 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 Plan of Treatment Future Appointment(s):02/14/2020 2:45 pm - Charles Quiñones M.D. at [facility] Functional Status Description No Information Available Mental Status Description No Information Available Referrals Description No Information Available
--- OUTSIDE RECORDS SUMMARY | 2020-01-12 15:04 | XMS REPORT | Continuity of Care Document ---
:1955 External Reference #:[id number] Author Name Evans Vuong M.D. 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 1mg/ml Solution 8 hours as needed for [...] Injection 1 MG Injection Synvisc Or Synvisc-One Eavns Vuong M.D. 04/26/2019 Injection 1 MG Injection [...] Quiñones M.D. 10/02/2014 1 Unit Injection Injection Onabotulinumsofixin Bello, Charles Quiñones M.D. 07/03/2014 1 Unit [...] Monsalve M.D. 05/31/2012 1 Unit Injection Injection Onabotulinumtoxin [...] Available Procedures Date Code Description Status 07/10/2019 28647 ECHO Transthorasic Realtime 2D W Doppler & Color Flow Hosp Completed Medical Devices Description No Information Available Encounters Type Date Location Provider Dx Diagnosis Office Visit 12/06/2019 [facility] Evans Vuong, M17.0 Bilateral primary 10:45a at [facility] osteoarthritis of knee Office Visit 09/27/2019 [facility] Charles Leggett G89.4 Chronic pain syndrome 2:45p [facility] Quiñones M.D. G43.019 Migraine w/o aura, intractable, without status migrainosus G24.01 Drug induced subacute dyskinesia Office Visit 07/11/2019 [facility] Charles Leggett R20.0 Anesthesia of 7:00a Lou Quiñones M.D. skin M48.9 Spondylopathy, unspecified Z98.1 Arthrodesis status Office Visit 07/11/2019 [facility] Jennifer M54.12 Radiculopathy, 10:47a Assoc,ton Louis MD [...] Z98.1 Arthrodesis status Office Visit 07/09/2019 10:42a [facility] Kvng J44.9 Chronic Assoc,ton Freeman M.D. 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 intractable, [facility] [employer] without status migrainosus G24.01 Drug induced subacute dyskinesia M54.16 Radiculopathy, lumbar region M54.12 Radiculopathy, cervical region Assessments Date Code Description Provider 12/06/2019 M17.0 Bilateral primary osteoarthritis of knee Evans Vuong M.D. 09/27/2019 G89.4 Chronic pain syndrome Charles Quiñones [...] 2:45 pm - Charles Quiñones M.D. at [facility]09/27/2019 - Charles Quiñones M.D.G89.4 Chronic pain pbziakeoE08.019 Migraine without aura, intractable, without status migrainosusFollow up:4 jydlbiT35.01 Drug induced subacute dyskinesia Functional Status Description No Information Available Mental Status Description No Information Available Referrals Description No Information Available
[2020-01-12 15:37] VITALS: BP 126/74
--- NOTE | 2020-01-12 16:21 | UC ---
Lower Extremity/Ankle HPI - HPI Summary HPI Summary: 64-year-old female presents with complaints of left ankle pain. States she was ambulating on her porch with the assistance of her home health aide when she twisted the ankle, lost her balance, and was lowered to the ground by her aide. She complains of pain to the lateral left ankle. States she has been unable to walk or bear weight on it since the injury due to the pain. Has taken over- the-counter acetaminophen with some relief in the pain. Denies bruising, swelling, numbness, tingling, or any other injury. - History of Current Complaint Chief Complaint: UCLowerExtremity Stated Complaint: FOOT INJURY Time Seen by Provider: 01/12/20 15:22 Hx Obtained From: Patient Pain Intensity: 8 - Allergies/Home Medications Allergies/Adverse Reactions: Allergies Allergy/AdvReac Type Severity Reaction Status Date / Time deutetrabenazine Allergy See Comment Verified 01/12/20 15:08 [From Austedo] erenumab-aooe Allergy Unknown Verified 01/12/20 15:08 [From Aimovig Autoinjector] Reaction Details fremanezumab-vfrm Allergy Constipatio Verified 01/12/20 15:08 [From Ajovy] n hydromorphone [From Dilaudid] Allergy Vomiting Verified 01/12/20 15:08 Iodinated Contrast Media Allergy Difficulty Verified 01/12/20 15:08 Breathing memantine [From Namenda] Allergy Coughing Verified 01/12/20 15:08 oxycodone Allergy Vomiting Verified 01/12/20 15:08 prochlorperazine Allergy See Comment Verified 01/12/20 15:08 [From Compazine] Sulfa (Sulfonamide Allergy Rash And Verified 01/12/20 15:08 Antibiotics) Itching sumatriptan [From Imitrex] Allergy See Comment Verified 01/12/20 15:08 Home Medications: Home Medications Albuterol HFA INHALER* [Ventolin HFA Inhaler*] 2 puff INH Q4H PRN 09/23/18 [ History Confirmed 01/12/20] Ammonium Lactate 12% [Lac-Hydrin 12 %] 1 applic TOPICAL TID 09/23/18 [History Confirmed 01/12/20] Krill/Om-3/Dha/Epa/Phospho/Ast [Krill Oil 500 mg Softgel] 1 cap PO DAILY [History Confirmed 01/12/20] Ondansetron ODT TAB* [Zofran 4 MG Odt TAB*] 4 mg PO TID PRN 09/23/18 [History Confirmed 01/12/20] Triamcinolone 0.1% CREAM (NF) [Kenalog 0.1% Cream (NF)] 1 applic TOPICAL DAILY PRN 09/23/18 [History Confirmed 01/12/20] Budesonide/Formote 160/4.5(NF) [Symbicort 160/4.5 (NF)] 1 puff INH DAILY [History Confirmed 01/12/20] Aspirin 81 mg CHEW TAB* 81 mg PO DAILY 02/01/19 [History Confirmed 01/12/20] Polyethylene Glycol 3350* [Miralax (17 GM DOSE REAL)] 17 gm PO DAILY PRN [History Confirmed 01/12/20] Dihydroergotamine (D.H.E.)* [D.h.e. 45*] 1 mg IM DAILY PRN amp MDD 3 shots/day 02/06/19 [Rx Confirmed 01/12/20] Escitalopram * [Lexapro *] 20 mg PO DAILY tablet 02/06/19 [Rx Confirmed ] Fenofibrate(NF) [Tricor(NF)] 145 mg PO DAILY tab 02/06/19 [Rx Confirmed ] Montelukast Sodium TAB* [Singulair 10 MG TAB*] 10 mg PO BEDTIME tab 02/06/19 [ Rx Confirmed 01/12/20] Sucralfate TAB* [Carafate*] 1 gm PO BID tab 02/06/19 [Rx Confirmed 01/12/20] ALPRAZolam [Xanax Xr] 1 mg PO BID 11/01/19 [History Confirmed 01/12/20] ALPRAZolam [Xanax Xr] 2 mg PO BEDTIME 11/01/19 [History Confirmed 01/12/20] Acetaminophen [Tylenol Extra Strength] 1,000 mg PO Q8H PRN 11/01/19 [History Confirmed 01/12/20] Albuterol 2.5MG/3ML (0.083%)* [Ventolin 2.5 MG/3 ML NEB.PAPI*] 3 ml INH TID PRN 11/01/19 [History Confirmed 01/12/20] Aloe Vera 25 mg PO DAILY 11/01/19 [History Confirmed 01/12/20] Artificial Tears* 15 ML BTL [Polyvinyl Alcohol 1.4% OPTH*] 1 drop BOTH EYES TID 11/01/19 [History Confirmed 01/12/20] Cyclobenzaprine TAB* [Flexeril 10 MG TAB*] 10 mg PO QID 11/01/19 [History Confirmed 01/12/20] Hydrocodone/Acetaminophen [Hydrocodone-Acetamin 5-325 mg] 0.5 each PO QID MDD 1 tab 11/01/19 [History Confirmed 01/12/20] Lactobacillus (NF) [Culturelle (NF)] 10 tab PO DAILY 11/01/19 [History Confirmed 01/12/20] Lidocaine/Transparent Dressing [Lidocaine/Transparent Mark] 1 % BOTH NARES TID PRN 11/01/19 [History Confirmed 01/12/20] Magnesium Oxide TAB* [MagOx 400 TAB*] 500 mg PO DAILY 11/01/19 [History Confirmed 01/12/20] Rivaroxaban TAB(*) [Xarelto 20 mg] 20 mg PO DAILY 11/01/19 [History Confirmed ] Ubidecarenone [Coq-10 Tr] 400 mg PO DAILY 11/01/19 [History Confirmed 01/12/20] diPHENhydraMINE PO* [Benadryl PO 25 MG TAB*] 25 mg PO Q8H PRN 11/01/19 [History Confirmed 01/12/20] guaiFENesin ER TAB [Mucinex*] 600 mg PO Q12H PRN 11/01/19 [History Confirmed ] Diclofenac 1% GEL (NF) [Voltaren 1% GEL (NF)] 1 applic TOPICAL DAILY 11/16/19 [ History Confirmed 01/12/20] HYDROcodone/ACETAMIN 5-325 MG* [Hastings 5-325 TAB*] 1 tab PO Q6H PRN #8 tab MDD 4 11/16/19 [Rx] HYDROcodone/ACETAMIN 5-325 MG* [Hastings 5-325 TAB*] 1 tab PO Q6H PRN #8 tab MDD 4 11/16/19 [Rx Confirmed 01/12/20] Lidocaine PATCH 5%* [Lidoderm 5% Patch*] 1 patch TRANSDERM DAILY #14 patch 11/16 [Rx Confirmed 01/12/20] Clopidogrel TAB* [Plavix TAB*] 75 mg PO DAILY 01/12/20 [History Confirmed ] Estradiol VAG CM (NF) [Estrace VAG CM (NF)] 1 applic VAGINAL MORLEY 01/12/20 [ History Confirmed 01/12/20] Multivit-Min/Iron/Folic/Lutein [Centrum Silver Women Tablet] 1 tab PO DAILY [History Confirmed 01/12/20] Pantoprazole TAB * [Protonix TAB*] 40 mg PO DAILY 01/12/20 [History Confirmed ] PMH/Surg Hx/FS Hx/Imm Hx Endocrine History: Dyslipidemia Cardiovascular History: Bleeding Disorders - aortic embolism Respiratory History: COPD GI/ History: Gastroesophageal Reflux Neurological History: TIA Psychological History: Anxiety, Depression, Post Traumatic Stress Disorder Cancer History: Breast Cancer - Surgical History Surgical History: Yes Surgery Procedure, Year, and Place: Jaw surgery (1969, 1972, 1990), Hysterectomy (1987), Spinal fusion C3-7, L4-S1, Sinus (2005), Bladder tvt (2001 , 2009, 2016), ORIF right ankle (2009), BREAST BIOPSY - Family History Known Family History: Positive: Other - depression, ETOH abuse - Social History Occupation: Disabled Lives: Alone Alcohol Use: Rare Alcohol Amount: 1 glass wine Substance Use Type: None Smoking Status (MU): Never Smoked Tobacco - Immunization History Most Recent Influenza Vaccination: fall 2017 Most Recent Pneumonia Vaccination: pt stated 2018 Review of Systems All Other Systems Reviewed And Are Negative: Yes Constitutional: Positive: Negative Skin: Negative: Bruising Respiratory: Positive: Negative Cardiovascular: Positive: Negative Gastrointestinal: Positive: Negative Genitourinary: Positive: Negative Motor: Negative: Weakness Neurovascular: Negative: Decreased Sensation Musculoskeletal: Positive: Other: - See HPI Neurological/Mental Status: Positive: Negative Is Patient Immunocompromised?: No Physical Exam - Summary Physical Exam Summary: GENERAL APPEARANCE: Alert and cooperative chronically ill-appearing adult female who appears to be in no acute distress. HEAD: Atraumatic. Normocephalic. NECK: Neck supple, non-tender. CARDIAC: Normal S1 and S2. No S3, S4 or murmurs. Rhythm is regular. There is no peripheral edema, cyanosis or pallor. Extremities are warm and well perfused. Capillary refill is less than 2 seconds. Peripheral pulses intact. LUNGS: Clear to auscultation without rales, rhonchi, wheezing or diminished breath sounds. ABDOMEN: Positive bowel sounds. Soft, nondistended, nontender. No guarding or rebound. No masses or hepatosplenomegally. MUSKULOSKELETAL: Normal muscular development. Non-weightbearing. EXTREMITIES: Tenderness to the left lateral ankle without gross deformity, ecchymosis, or edema. ROM to left ankle limited due to pain. Circulation and sensation intact. SKIN: Skin normal color, texture and turgor. Triage Information Reviewed: Yes Vital Signs: Initial Vital Signs Temp 97.5 F 01/12/20 15:04 Pulse 93 01/12/20 15:04 Resp 21 01/12/20 15:04 BP 126/74 01/12/20 15:04 Pulse Ox 96 01/12/20 15:04 Vital Signs Reviewed: Yes Diagnostics - Radiology No standard instances Radiology Interpretation Completed By: Radiologist Summary of Radiographic Findings: Order Information: ANKLE LEFT 3+VWS. INDICATION: Left ankle injury. TECHNIQUE: 3 views of the left ankle were obtained. FINDINGS: The soft tissues are unremarkable. The bones are osteopenic. No displaced fracture is identified. Anatomic alignment is maintained. The joint spaces are preserved. IMPRESSION: No fracture identified. Lower Extremity Course/Dx - Course Course Of Treatment: 64-year-old female presents with complaints of left ankle pain. States she was ambulating on her porch with the assistance of her home health aide when she twisted the ankle, lost her balance, and was lowered to the ground by her aide. She complains of pain to the lateral left ankle. States she has been unable to walk or bear weight on it since the injury due to the pain. Has taken over- the-counter acetaminophen with some relief in the pain. Denies bruising, swelling, numbness, tingling, or any other injury. Afebrile. Vital signs stable. Patient had tenderness to the left lateral ankle without gross deformity, ecchymosis, or edema. Her ROM to left ankle limited due to pain. Circulation and sensation were intact. X-ray showed no acute fracture or dislocation. Reviewed results with the patient. Recommending conservative treatment for a left ankle sprain including [id number] acetaminophen and RICE. She was placed in a cam boot by the RN and recommended limited weightbearing with use of her walker. She is to follow-up with orthopedic surgery in 7 days if symptoms do not improve. Anticipatory guidance and warning symptoms were reviewed with the patient. Verbalizes understanding and agrees with plan of care. - Differential Dx/Diagnosis Differential Diagnosis/HQI/PQRI: Contusion, Dislocation, Fracture (Closed), Sprain Provider Diagnosis: Left ankle sprain Discharge ED - Sign-Out/Discharge Documenting (check all that apply): Patient Departure All imaging exams completed and their final reports reviewed: Yes - Discharge Plan Condition: Stable Disposition: HOME Patient Education Materials: Ankle Sprain (ED), Walking Boot (ED) Referrals: Melia Marin MD [Primary Care Provider] - Indra Dumont MD [Medical Doctor] - 7 Days (If no improvement in your symptoms. Call for appointment.) Additional Instructions: The x-ray performed in the clinic today showed no evidence of a fracture. Rest the ankle as much as possible. You may continue to walk and bear weight as tolerated. Use your walker to assist you with ambulation. Apply ice to the affected area for 15-20 minutes at least 4 times a day to help with the pain and swelling. Elevate the leg to help reduce swelling. Take acetaminophen (Tylenol) according to directions as needed for pain. Follow up with orthopedics in 7 days if symptoms do not improve. Call for appointment. Seek immediate medical attention if you have severe pain not managed with pain medication, you are unable to walk or bear any weight, develop numbness or tingling in the foot or toes, or have any worsening of symptoms. - Billing Disposition and Condition Condition: STABLE Disposition: Home
== END 2020-01-12 16:32 | disposition home or self-care (01) ==
LOC: UCEAST 14:52
DX: S93.402A Sprain of unspecified ligament of left ankle, initial encounter (principal); X50.1XXA Overexertion from prolonged static or awkward postures, initial encounter; Y93.01 Activity, walking, marching and hiking; Y92.008 Other place in unspecified non-institutional (private) residence as the place of occurrence of the external cause; E78.5 Hyperlipidemia, unspecified; K21.9 Gastro-esophageal reflux disease without esophagitis; J44.9 Chronic obstructive pulmonary disease, unspecified; F41.9 Anxiety disorder, unspecified; F32.9 Major depressive disorder, single episode, unspecified; F43.10 Post-traumatic stress disorder, unspecified; Z86.73 Personal history of transient ischemic attack (TIA), and cerebral infarction without residual deficits; Z79.82 Long term (current) use of aspirin; Z79.02 Long term (current) use of antithrombotics/antiplatelets; Z79.01 Long term (current) use of anticoagulants; Z79.899 Other long term (current) drug therapy; Z88.5 Allergy status to narcotic agent; Z88.2 Allergy status to sulfonamides; Z88.8 Allergy status to other drugs, medicaments and biological substances; Z91.041 Radiographic dye allergy status
CPT/HCPCS: 99212; G0463

== ENCOUNTER 2021-03-05 20:56 | Inpatient (IN) ==
[2021-03-05 22:40] LABS: ABS Lymphocytes 0.4 10^3/ul (1.0-4.8); ABS Monocytes 0.2 10^3/ul (0-0.8); ABS Neutrophils 6.2 10^3/ul (1.5-7.7); Hematocrit 38 % (35-47); Lymphocyte % 5.5 %; Mean Corpuscular HGB Conc 34 g/dL (31-36); Mean Corpuscular Hemoglobin 31 pg (27-31); Mean Corpuscular Volume 92 fL (80-97); Platelet Count 316 10^3/uL (150-450); Red Blood Count 4.15 10^6 /uL (3.70-4.87); Red Cell Distribution Width 15 % (10-15); White Blood Count 6.8 10^3/uL (3.5-10.8)
[2021-03-05 22:58] LABS: ALT 26 U/L (7-52); Albumin 4.4 g/dL (3.2-5.2); Albumin/Globulin Ratio 1.3 (1-3); Alkaline Phosphatase 92 U/L (35-149); Blood Urea Nitrogen 6 mg/dL (6-24); CO2 Carbon Dioxide 29 mmol/L (22-32); Calcium 9.3 mg/dL (8.6-10.3); Chloride 97 mmol/L (101-111); EGFR African American 116.2 (>60); Globulin 3.5 g/dL (2-4); Glucose 177 mg/dL (70-100); Sodium 132 mmol/L (135-145); Total Protein 7.9 g/dL (6.4-8.9)
[2021-03-05 23:16] LABS: Anion Gap 6 mmol/L (2-11)
[2021-03-06] MEDS ORDERED: Iodixanol (CONTRAST) 320 MG/ML 100 ML SDV IV ONE (00:23)
[2021-03-06 01:03] LABS: Potassium Redraw 4.2 mmol/L (3.5-5.0)
[2021-03-06] MEDS ORDERED: LORazepam 2 mg VIAL 1 ml IV PUSH ONE (04:10)
[2021-03-06] MEDS ORDERED: LORazepam 2 mg VIAL 1 ml ONE (04:54)
[2021-03-06] MEDS ORDERED: Dextrose 50% Syringe 50 ml 25 GM/50 ML SYRINGE IV PUSH PRN (05:25)
[2021-03-06] MEDS ORDERED: Albuterol HFA INHALER 8 gm MDI INH PRN ×2 (05:28→08:07)
[2021-03-06] MEDS ORDERED: Budesonide/Formote 160/4.5(NF) MDI INH PRN (05:28)
[2021-03-06 08:35] LABS: ABS Lymphocytes 0.8 10^3/ul (1.0-4.8); ABS Monocytes 0.8 10^3/ul (0-0.8); Eosinophil % 0.5 %; Hematocrit 36 % (35-47); Hemoglobin 12.1 g/dL (12.0-16.0); Lymphocyte % 9.1 %; Mean Corpuscular HGB Conc 34 g/dL (31-36); Mean Corpuscular Hemoglobin 31 pg (27-31); Mean Corpuscular Volume 93 fL (80-97); Mean Platelet Volume 6.8 fL (7.4-10.4); Platelet Count 340 10^3/uL (150-450); Red Blood Count 3.87 10^6 /uL (3.70-4.87); Red Cell Distribution Width 14 % (10-15); White Blood Count 8.7 10^3/uL (3.5-10.8)
[2021-03-06] MEDS ORDERED: Mometasone/Formoter 200/5 MDI INH PRN (08:43)
[2021-03-06 08:48] LABS: Calcium 9.2 mg/dL (8.6-10.3); EGFR African American 130.7 (>60)
[2021-03-06] MEDS ORDERED: Albuterol/Ipratropium NEB.SOL (2.5/0.5 MG) 3 ML NEB.SOLN INH PRN (10:32)
[2021-03-06] MEDS ORDERED: Lorazepam PYXIS KEY PRN (10:36)
[2021-03-06] MEDS: HYDROcodone/ACETAMIN 5/325 mg TAB PO PRN ×2 (11:35→23:27)
[2021-03-06] MEDS: Ondansetron 4 mg VIAL 2 MG/ML 2 ml VIAL IV PRN (19:56)
[2021-03-07] MEDS ORDERED: Benzocaine/Menthol LOZ PO PRN (07:41)
[2021-03-07] MEDS: HYDROcodone/ACETAMIN 5/325 mg TAB PO PRN ×2 (09:12→21:35)
[2021-03-07] MEDS ORDERED: Lactated Ringers 1000 ml BAG 1,000 ML IV SCH (14:00)
[2021-03-07] MEDS: Magic MouthWash1-BEN/MAAL/LIDO 180 ML BTL SWISH SPIT SCH (21:43)
[2021-03-08] MEDS: HYDROcodone/ACETAMIN 5/325 mg TAB PO PRN (05:18)
[2021-03-08] MEDS: Magic MouthWash1-BEN/MAAL/LIDO 180 ML BTL SWISH SPIT SCH ×4 (09:21→20:11)
[2021-03-08] MEDS ORDERED: Furosemide 20 mg/2 ml IV VIAL IV ONE (16:32)
[2021-03-08] MEDS: Ondansetron 4 mg VIAL 2 MG/ML 2 ml VIAL IV PRN (17:54)
[2021-03-08] MEDS ORDERED: Polyethylene Glycol 3350 17 GM PACKET PO PRN (19:40)
[2021-03-08] MEDS ORDERED: Magnesium Hydroxide LIQ 30 ML UDC PO PRN (19:40)
[2021-03-08] MEDS ORDERED: Senna TAB 8.6 mg TAB PO PRN (19:40)
[2021-03-08] MEDS: Magnesium Hydroxide LIQ 30 ML UDC PO SCH (20:07)
[2021-03-09] MEDS: HYDROcodone/ACETAMIN 5/325 mg TAB PO PRN ×2 (03:18→10:57)
[2021-03-09] MEDS: Magic MouthWash1-BEN/MAAL/LIDO 180 ML BTL SWISH SPIT SCH ×4 (08:12→19:49)
[2021-03-09] MEDS: Magnesium Hydroxide LIQ 30 ML UDC PO SCH ×2 (08:13→19:48)
[2021-03-09] MEDS ORDERED: Metformin ER 500 mg TAB (NF) PO SCH (09:00)
[2021-03-10 05:22] LABS: Calcium 9.5 mg/dL (8.6-10.3); Magnesium 2.7 mg/dL (1.9-2.7)
[2021-03-10 05:25] LABS: Potassium 5.1 mmol/L (3.5-5.0)
[2021-03-10 05:28] LABS: EGFR African American 120.7 (>60); EGFR Non-African American 99.7 (>60)
[2021-03-10 08:46] LABS: ABS Lymphocytes 0.5 10^3/ul (1.0-4.8); ABS Monocytes 0.2 10^3/ul (0-0.8); ABS Neutrophils 5.9 10^3/ul (1.5-7.7); Eosinophil % 0.5 %; Hematocrit 40 % (35-47); Hemoglobin 13.6 g/dL (12.0-16.0); Lymphocyte % 7.6 %; Mean Corpuscular HGB Conc 34 g/dL (31-36); Mean Corpuscular Hemoglobin 31 pg (27-31); Mean Corpuscular Volume 93 fL (80-97); Platelet Count 419 10^3/uL (150-450); Red Blood Count 4.32 10^6 /uL (3.70-4.87); Red Cell Distribution Width 14 % (10-15); White Blood Count 6.6 10^3/uL (3.5-10.8)
[2021-03-10] MEDS: Magnesium Hydroxide LIQ 30 ML UDC PO SCH ×3 (10:06→21:04)
[2021-03-10] MEDS: Magic MouthWash1-BEN/MAAL/LIDO 180 ML BTL SWISH SPIT SCH ×4 (10:06→21:04)
[2021-03-10] MEDS: HYDROcodone/ACETAMIN 5/325 mg TAB PO PRN ×2 (13:52→20:56)
[2021-03-11 05:59] LABS: Calcium 9.1 mg/dL (8.6-10.3); EGFR African American 133.4 (>60); EGFR Non-African American 110.2 (>60); Magnesium 2.2 mg/dL (1.9-2.7); Potassium 3.6 mmol/L (3.5-5.0)
[2021-03-11] MEDS: Magic MouthWash1-BEN/MAAL/LIDO 180 ML BTL SWISH SPIT SCH ×4 (08:59→21:24)
[2021-03-11] MEDS ORDERED: Potassium Chloride LIQUID 20 MEQ/15 ML LIQUID PO ONE (10:01)
[2021-03-11] MEDS: HYDROcodone/ACETAMIN 5/325 mg TAB PO PRN (12:00)
[2021-03-11] MEDS ORDERED: LIDOCAINE HCL INTRANASAL PRN (12:23)
[2021-03-12 07:05] LABS: Calcium 9.1 mg/dL (8.6-10.3); EGFR African American 116.2 (>60)
[2021-03-12] MEDS: Magic MouthWash1-BEN/MAAL/LIDO 180 ML BTL SWISH SPIT SCH ×4 (08:41→20:43)
[2021-03-12] MEDS: Ondansetron 4 mg VIAL 2 MG/ML 2 ml VIAL IV PRN ×2 (09:27→15:51)
[2021-03-12] MEDS: HYDROcodone/ACETAMIN 5/325 mg TAB PO PRN (12:59)
[2021-03-13] MEDS: Magic MouthWash1-BEN/MAAL/LIDO 180 ML BTL SWISH SPIT SCH (07:57)
[2021-03-13 11:16] VITALS: BP 139/82
== END 2021-03-13 11:05 | disposition swing bed (61) ==
LOC: ED 20:56 → MED 20:56 → ED 03-06 07:35 → MED 03-06 22:30
PROVIDERS: ADMIT Internal Medicine; ATTEND Internal Medicine